=== PATIENT | male | born 1995 | race Hispanic/Latino ===

== ENCOUNTER 2017-01-26 17:34 | Inpatient (IN) | payer MEDICAID ==
[2017-01-26 17:48] VITALS: BMI 24.3
--- NOTE | 2017-01-26 18:50 | ED PDOC ---
Arrival/HPI - General Chief Complaint: Psychiatric Evaluation Time Seen by Provider: 01/26/17 18:30 Historian: Patient - History of Present Illness Narrative History of Present Illness (Text): 01/26/17 20:01 21yo male present with complaint of depression and suicidal attempt. States he have history of drug dependence and went to rehab about 6months ago. States he relapsed and felt depressed. He attempted to take a bottle of Tylenol whenever his father walked into the house. He denies hallucination, HI, any other complaint. Past Medical History - Provider Review Nursing Documentation Reviewed: Yes - Infectious Disease Hx of Infectious Diseases: None - Past Medical History Past Medical History: No Previous - Cardiac Hx Cardiac Disorders: No Hx Hypertension: No - Pulmonary Hx Respiratory Disorders: No Hx Tuberculosis: No - Neurological Hx Neurological Disorder: No HX Cerebrovascular Accident: No Hx Seizures: No - HEENT Hx HEENT Disorder: No - Renal Hx Renal Disorder: No - Endocrine/Metabolic Hx Endocrine Disorders: No - Hematological/Oncological Hx Blood Disorders: No Hx Cancer: No - Integumentary Hx Dermatological Disorder: No - Musculoskeletal/Rheumatological Hx Musculoskeletal Disorders: No - Gastrointestinal Hx Gastrointestinal Disorders: No Hx Gastroesophageal Reflux: Yes - Genitourinary/Gynecological Hx Genitourinary Disorders: No Hx Sexually Transmitted Diseases: No - Psychiatric Hx Psychophysiologic Disorder: Yes Hx Anxiety: Yes Hx Bipolar Disorder: Yes Hx Depression: Yes Hx Substance Use: Yes (Xanax and oxycodone) - Surgical History Hx Tonsillectomy: Yes Other/Comment: adenoidectomy - Anesthesia Hx Anesthesia: Yes Hx Anesthesia Reactions: No Hx Malignant Hyperthermia: No - Suicidal Assessment Feels Threatened In Home Enviroment: No Family/Social History - Physician Review Nursing Documentation Reviewed: Yes Family/Social History: Unknown Family HX Smoking Status: Light Smoker < 10 Cigarettes Daily Hx Alcohol Use: No Hx Substance Use: Yes (Xanax and oxycodone) Substance used: marijuana Allergies/Home Meds Allergies/Adverse Reactions: Allergies No Known Allergies Allergy (Verified 01/26/17 22:37) Review of Systems - Physician Review All systems were reviewed & negative as marked: Yes - Review of Systems Constitutional: Normal Eyes: Normal ENT: Normal Respiratory: Normal Cardiovascular: Normal Gastrointestinal: Normal Genitourinary Male: Normal Musculoskeletal: Normal Skin: Normal Neurological: Normal Endocrine: Normal Hemo/Lymphatic: Normal Psychiatric: Depression, Suicidal Ideation Physical Exam Vital Signs Reviewed: Yes Vital Signs Temp Pulse Resp BP Pulse Ox 01/26/17 17:55 84 16 161/96 H 97 01/26/17 17:47 97.8 F 84 17 161/96 H 97 Temperature: Afebrile Blood Pressure: Normal Pulse: Regular Respiratory Rate: Normal Appearance: Positive for: Well-Appearing, Non-Toxic, Comfortable Pain Distress: None Mental Status: Positive for: Alert and Oriented X 3 - Systems Exam Head: Present: Atraumatic, Normocephalic Pupils: Present: PERRL Extroacular Muscles: Present: EOMI Conjunctiva: Present: Normal Mouth: Present: Moist Mucous Membranes Neck: Present: Normal Range of Motion Respiratory/Chest: Present: Clear to Auscultation, Good Air Exchange. No: Respiratory Distress, Accessory Muscle Use Cardiovascular: Present: Regular Rate and Rhythm, Normal S1, S2. No: Murmurs Abdomen: Present: Normal Bowel Sounds. No: Tenderness, Distention, Peritoneal Signs Back: Present: Normal Inspection Upper Extremity: Present: Normal Inspection. No: Cyanosis, Edema Lower Extremity: Present: Normal Inspection. No: Edema Neurological: Present: GCS=15, CN II-XII Intact, Speech Normal Skin: Present: Warm, Dry, Normal Color. No: Rashes Psychiatric: Present: Alert, Oriented x 3, Normal Insight, Normal Concentration , Depressed Mood Medical Decision Making ED Course and Treatment: 01/27/17 03:22 PT in ED for stated history. He was cleared medically for psych evaluation, was seen by PES screener. He was admitted to Dr. Best for bipolar. - Lab Interpretations Lab Results: 01/26/17 19:10 01/26/17 19:10 Lab Results 01/26/17 19:10: WBC 6.2, RBC 5.12, Hgb 15.6, Hct 43.3, MCV 84.6, MCH 30.5, MCHC 36.0, RDW 12.7, Plt Count 201, MPV 10.0, Gran % 61.2, Lymph % (Auto) 29.6, Morrison % (Auto) 7.1 H, Eos % (Auto) 1.9, Baso % (Auto) 0.2, Gran # 3.82, Lymph # 1.9, Morrison # 0.4, Eos # 0.1, Baso # 0.01, Sodium 141, Potassium 4.0, Chloride 103, Carbon Dioxide 25, Anion Gap 17, BUN 10, Creatinine 0.9, Est GFR ( Amer) > 60, Est GFR (Non-Af Amer) > 60, Random Glucose 90, Calcium 9.6, Total Bilirubin 1.3, AST 19, ALT 22, Alkaline Phosphatase 71, Total Protein 7.9, Albumin 4.5, Globulin 3.4, Albumin/Globulin Ratio 1.3, Salicylates < 1 L, Acetaminophen < 10.0 L, Alcohol, Quantitative < 10 01/26/17 18:35: Urine Color Light yellow, Urine Appearance Clear, Urine pH 7.5, Ur Specific Jemison 1.025, Urine Protein Trace H, Urine Glucose (UA) Negative, Urine Ketones Negative, Urine Blood Negative, Urine Nitrate Negative, Urine Bilirubin Negative, Urine Urobilinogen 0.2, Ur Leukocyte Esterase Negative, Urine RBC 0 - 2, Urine WBC Negative, Ur Epithelial Cells 1 - 3, Amorphous Sediment Small, Urine Bacteria Mod, Urine Opiates Screen Negative, Urine Methadone Screen Negative, Ur Barbiturates Screen Negative, Ur Phencyclidine Scrn Negative, Ur Amphetamines Screen Negative, U Benzodiazepines Scrn Positive H, U Oth Cocaine Metabols Negative, U Cannabinoids Screen Positive H - Medication Orders Current Medication Orders: Acetaminophen (Tylenol 325mg Tab) 650 mg PO Q4H PRN PRN Reason: Pain, moderate (4-7) Al Hydrox/Mg Hydrox/Simethicone (Maalox Plus 30 Ml) 30 ml PO DAILY PRN PRN Reason: Indigestion / Heartburn Atorvastatin Calcium (Lipitor) 20 mg PO DIN [facility] Last Admin: 01/26/17 23:30 Dose: Not Given Non-Admin Reason: Patient Asleep Bupropion HCl (Wellbutrin Xl) 300 mg PO DAILY [facility] Clonazepam (Klonopin) 2 mg PO TID [facility] PRN Reason: Protocol Magnesium Hydroxide (Milk Of Magnesia) 30 ml PO DAILY PRN PRN Reason: Constipation Mirtazapine (Remeron) 45 mg PO HS [facility] Last Admin: 01/26/17 23:04 Dose: 45 MG Nicotine (Nicoderm Cq) 1 patch TD DAILY [facility] Pantoprazole Sodium (Protonix Ec Tab) 40 mg PO 0630 [facility] Quetiapine Fumarate (Seroquel Xr) 300 mg PO HS PRN; Protocol PRN Reason: Insomnia Last Admin: 01/26/17 23:04 Dose: 300 MG Behavioural Document 01/26/17 23:04 MB (Rec: 01/26/17 23:04 MB [id number]) Maintenance Maintenance Dose Yes Re-Assess: Reassess Psych Meds Document 01/27/17 00:04 MB (Rec: 01/27/17 01:58 MB [id number]) Reassess Psych Med Effective Zolpidem Tartrate (Ambien) 10 mg PO HS PRN; Protocol PRN Reason: Insomnia Last Admin: 01/26/17 23:04 Dose: 10 MG Behavioural Document 01/26/17 23:04 MB (Rec: 01/26/17 23:04 [id number] Maintenance Maintenance Dose Yes Re-Assess: Reassess Psych Meds Document 01/27/17 00:04 MB (Rec: 01/27/17 01:55 MB [id number]) Reassess Psych Med Effective Disposition/Present on Arrival - Present on Arrival Any Indicators Present on Arrival: No History of DVT/PE: No History of Uncontrolled Diabetes: No Urinary Catheter: No History of Decub. Ulcer: No History Surgical Site Infection Following: None - Disposition Have Diagnosis and Disposition been Completed?: Yes Diagnosis: Suicidal ideation, Bipolar 1 disorder, Polysubstance abuse Disposition: HOSPITALIZED Disposition Time: 21:15 Patient Problems: Current Active Problems Problem Status Diagnosed Bipolar 1 disorder Acute Polysubstance abuse Acute Suicidal ideation Acute Condition: FAIR
[2017-01-26 18:54] LABS: PH,URINE 7.5 (4.7-8.0); URINE BILIRUBIN NEGATIVE (NEGATIVE); URINE BLOOD NEGATIVE (NEGATIVE); URINE GLUCOSE (UA) NEGATIVE (NEGATIVE); URINE KETONE NEGATIVE (NEGATIVE); URINE LEUKOCYTE ESTERASE NEGATIVE Leu/uL (NEGATIVE); URINE PROTEIN TRACE mg/dL (<30 mg/dL); URINE UROBILINOGEN 0.2 E.U./dL (<1 E.U./dL)
[2017-01-26 19:01] LABS: URINE APPEARANCE CLEAR (CLEAR); URINE COLOR LIGHT YELLOW (YELLOW)
[2017-01-26 19:16] LABS: ADD MANUAL DIFF? NO
[2017-01-26 19:22] LABS: BASO # 0.01 [, K/mm3] (0.0-2.0); BASO % 0.2 % (0.0-3.0); EOS # 0.1 (0.0-0.7); EOS % 1.9 % (1.5-5.0); GRAN # 3.82 (1.4-6.5); GRAN % 61.2 % (50.0-68.0); HEMATOCRIT 43.3 % (42.0-52.0); LYMPH # 1.9 (1.2-3.4); LYMPH % 29.6 % (22.0-35.0); MEAN CELL VOLUME 84.6 fL (80.0-105.0); MEAN CORPUSCULAR HEMOGLOBIN 30.5 pg (25.0-35.0); MONO # 0.4 (0.1-0.6); MONO % 7.1 % (1.0-6.0); PLATELET COUNT 201 [, 10^3/uL] (120.0-450.0); RED CELL DISTRIBUTION WIDTH 12.7 % (11.5-14.5); WHITE BLOOD COUNT 6.2 [, 10^3/ul] (4.5-11.0)
[2017-01-26 19:32] LABS: ALB/GLOB RATIO 1.3 (1.1-1.8); ALKALINE PHOSPHATASE 71 U/L (38-133); ALT/SGPT 22 U/L (7-56); AST/SGOT 19 U/L (15-59); BILIRUBIN,TOTAL 1.3 mg/dL (0.2-1.3); BLOOD UREA NITROGEN 10 mg/dL (7-21); CALCIUM 9.6 mg/dL (8.4-10.5); CARBON DIOXIDE 25 mmol/L (21-33); CHLORIDE 103 mmol/L (98-107); GFR AFRICAN-AMERICAN > 60; GLUCOSE,RANDOM 90 mg/dL (70-110); SODIUM 141 mmol/L (132-148); TOTAL PROTEIN 7.9 g/dL (5.8-8.3)
[2017-01-26 19:38] LABS: URINE BACTERIA MOD (NEG); URINE RBC 0 - 2 /hpf (0-2); URINE WBC NEGATIVE /hpf (0-6)
[2017-01-26 19:39] LABS: URINE AMORPHOUS SEDIMENT SMALL
[2017-01-26] MEDS ORDERED: Alum-Mag Hydrox-Simethicone Susp (30 mL) PO PRN (22:39)
[2017-01-26] MEDS ORDERED: Magnesium Hydroxide Susp 30 ml UD PO PRN (22:39)
[2017-01-26] MEDS: QUEtiapine 300 mg XR Tab PO PRN (23:04)
[2017-01-27 00:19] VITALS: O2SAT 96
[2017-01-27] MEDS: Pantoprazole 40 mg EC Tab PO SCH (08:08)
[2017-01-27] MEDS: buPROPion 300 mg/24 Hours XL Tab PO SCH (08:08)
[2017-01-27 08:53] LABS: CHOLESTEROL 227 mg/dL (130-200); GLUCOSE,FASTING 89 mg/dL (65-110)
--- NOTE | 2017-01-27 14:54 | CON ---
DATE: 01/27/2017 He is in the psychiatric unit. I have seen him in the office a few times. He is a 21-year-old male who has a history of depression and suicidal attempt. He came to the Emergency Room because he was not doing well. He is drug dependent. He went to rehab for 6 months. He relapsed and he is depressed. He attempted to take a bottle of Tylenol. His father walked to the house and here we are in the ER and back in the psychiatric unit. PAST MEDICAL HISTORY: He has a history of GERD, anxiety, bipolar, depression, substance abuse on Xanax and oxycodone, questionable history of hypertension and high cholesterol. He has anxiety, bipolar. PAST SURGICAL HISTORY: He had an adenoidectomy at one time, tonsillectomy. FAMILY HISTORY: There is hypertension in the family. SOCIAL HISTORY: He is a smoker. Xanax, codeine, marijuana. Occasional alcohol. ALLERGIES: No known drug allergies. REVIEW OF SYSTEMS: No acute vision changes or hearing changes or sore throats. No headaches, dizziness. No chest pain or shortness of breath. No nausea, vomiting, constipation, diarrhea. His legs are okay. Skin for the most part is intact. He has suicidal thoughts and depression. PHYSICAL EXAMINATION: VITAL SIGNS: He has a 97.8 temp, 84 pulse, 17 respiratory rate, 161/96 blood pressure, 97% O2 sat on room air. HEENT: Head is atraumatic, normocephalic. He is alert and oriented x 3. Extraocular muscles are intact. Pupils are equal, reactive to light. Throat is moist. NECK: Supple. HEART: Regular rate. LUNGS: Decreased breath sounds but clear. ABDOMEN: Soft, nontender, positive bowel sounds. No guarding, no rebound, no CVA tenderness. EXTREMITIES: Have no edema. NEUROLOGIC: His GCS is 15. Cranial nerves II-XII are intact. His face on both sides, he felt the same with a tissue. He could smile, stick out his tongue midline. He could follow my finger in an H pattern with his eyes. He could raise his hands over his head equally. He is in no acute neurological distress at this time. LABORATORY: He had a 6.2 white count, 15.6 hemoglobin, 43.3 hematocrit with 201 platelets. He has a 141 sodium, potassium is 4, BUN is 10, creatinine 0.9, GFR is greater than 60, sugar is 90, calcium is 9.6. Total bili is 1.3, AST is 19, ALT is 22, alkaline phosphatase 71, total protein 7.9. Urine is moderate bacteria. He has positive benzo and positive marijuana in the urine. MEDICATIONS: He is on Ambien, Klonopin, Lipitor, Maalox, milk of magnesia, Nicoderm, Protonix, Remeron, Seroquel, Tylenol, Wellbutrin. I added Norvasc. Will check his labs tomorrow. He is here for depression, suicidal ideation, hypertension, high cholesterol, smoker, marijuana abuse and gastroesophageal reflux disease. check bp tomorrow and his labs. He understands why he is here. He is pretty motivated to get better; I hope that it persists. Dung Sosa DO cc: [id number] TT: 01/27/2017 14:53:37 Confirmation # [id number] Dictation # [id number] mn MTDWade
--- NOTE | 2017-01-27 16:42 | RAD ---
HISTORY: Medical clearance. COMPARISON: No prior. TECHNIQUE: Chest PA and lateral FINDINGS: LUNGS: No active pulmonary disease. PLEURA: No significant pleural effusion identified. No pneumothorax apparent. CARDIOVASCULAR: Normal. OSSEOUS STRUCTURES: No significant abnormalities. VISUALIZED UPPER ABDOMEN: Normal. OTHER FINDINGS: None. IMPRESSION: No active disease.
--- NOTE | 2017-01-27 18:00 | CARD ---
APPROVED REPORT EKG Measurement Heart [id number] [place] [id number] <Conclusion> Normal sinus rhythm Rightward axis Borderline ECG
[2017-01-27] MEDS: QUEtiapine 300 mg XR Tab PO PRN (21:21)
--- NOTE | 2017-01-28 07:26 | HP ---
IDENTIFYING INFORMATION: The patient is a 21-year-old single white male who was brought to the Emerg ency Room by his father expressing suicidal thoughts. HISTORY OF PRESENT ILLNESS: The patient indicated that he had been feeling depressed and did not fee l like living anymore. He indicated that he woke up and decided to end his life. In the Emergency Room, he explained that he had picked up a bottle of Tylenol and had put into his mo uth with the intent of swallowing it when his father walked in. He reportedly did consume some pills , but then threw up. The patient indicated that he had recently relapsed with OxyContin and was feel ing badly about this. He could not say how much Tylenol he had consumed. He indicated that he had been on psychotropic medication but stopped this months ago because he was f eeling better. He did admit also to smoking marijuana and also Xanax. In the Emergency Room, his speech was noted to be normal in rate, tone, and speed, and his thought pr ocesses were logical and goal directed and he answered questions appropriately with no signs of psych otic or paranoid ideation. He did state, however, that he was hearing voices that he could not make out, although he did say that he heard his name a few times. The patient previously had been admitted to the psychiatric unit from 07/07/2016 to 07/15/2016 under the care of Dr. Shukla. At that time, as presently, he reported a history of polysubstance abuse and dependence. He also reported a history of attention deficit hyperactivity disorder. That hospitalization apparently was his first (and only as far as can be presently determined). The patient then was noted to be hypomanic as he is now, and was noted to be over productive in his s peech (as he is now and with some pressured speech as well). At that time, he admitted to abusing predominantly Xanax. He reports a history of 6 prior detoxifications. Most recently was 3 months prior to his previous spitalization; this having been at [facility]. The patient reports a history of using psychedelics (mushrooms), opioid analgesics and benzodiazepine s (Xanax), alcohol, cocaine, IV heroin, PCP. Prior detoxifications have been in [facility] (3 times), [facility] as noted and [place], [place]. The patient reported that he had been referred after his last hospitalization to the [facility], but had not seen a psychiatrist there. The patient reported that he had been taking 300 mg of Seroquel daily, although his compliance with t his is uncertain. He also indicated he was on Wellbutrin. Presently, the patient has been started again on Remeron 45 mg at bedtime, Seroquel 150 a.m. and 300 at bedtime, Wellbutrin 300 daily, Lamictal 50 mg per day as well as Klonopin 2 mg t.i.d. A CBC and differential shows slightly elevated monocyte percent of 7.1. Other indices within normal limits. RPR was nonreactive. Drug screen positive for benzodiazepines and cannabinoids. Biochemical profile shows elevated cholesterol of 227, LDH cholesterol 153. Urinalysis shows trace p rotein. 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 He does not appear to be overtly psychotic nor overtly homicidal or suicidal or paranoid. Hi s ____, however, do appear to be compromised. DIAGNOSES: Rule out bipolar disorder, rule out substance-induced mood disorder, polysubstance abuse. TREATMENT PLAN: The patient will be assessed more fully on the psychiatric unit and a more comprehen sive treatment plan will be developed subsequently. Ever Best MD, PhD cc: [id number] TT: 01/28/2017 07:25:01 ut
[2017-01-28 08:30] LABS: HEMATOCRIT 46.8 % (42.0-52.0); MEAN CELL VOLUME 84.2 fL (80.0-105.0); MEAN CORPUSCULAR HEMOGLOBIN 30.6 pg (25.0-35.0); MEAN CORPUSCULAR HGB CONC 36.3 g/dl (31.0-37.0); MEAN PLATELET VOLUME 10.2 fl (7.0-11.0); WHITE BLOOD COUNT 6.1 [, 10^3/ul] (4.5-11.0)
[2017-01-28] MEDS: buPROPion 300 mg/24 Hours XL Tab PO SCH (08:41)
[2017-01-28] MEDS: Pantoprazole 40 mg EC Tab PO SCH (08:41)
[2017-01-28 08:43] LABS: ALB/GLOB RATIO 1.3 (1.1-1.8); ALKALINE PHOSPHATASE 85 U/L (38-133); ALT/SGPT 21 U/L (7-56); AST/SGOT 18 U/L (15-59); BILIRUBIN,TOTAL 2.5 mg/dL (0.2-1.3); BLOOD UREA NITROGEN 15 mg/dL (7-21); CALCIUM 9.7 mg/dL (8.4-10.5); CARBON DIOXIDE 24 mmol/L (21-33); CHLORIDE 102 mmol/L (98-107); GFR AFRICAN-AMERICAN > 60; GLUCOSE,RANDOM 102 mg/dL (70-110); POTASSIUM 3.7 mmol/L (3.6-5.0); SODIUM 140 mmol/L (132-148); TOTAL PROTEIN 8.3 g/dL (5.8-8.3)
--- NOTE | 2017-01-28 08:58 | PN ---
DATE: 01/28/2017 I saw the patient on the psychiatric floor. He is comfortable. He slept well, eating well, taking his medications well. He wants to get better. MEDICATIONS: He is on Ambien, Klonopin, Lamictal, Lipitor, Maalox, milk of magnesia, Nicoderm, Norvasc, Protonix, Remeron, Seroquel, Tylenol, and Wellbutrin. PHYSICAL EXAMINATION: VITAL SIGNS: Temp 97.4, 48 pulse, 108/61 blood pressure, 20 respiratory rate. HEAD: Atraumatic, normocephalic. HEART: Regular rate. LUNGS: Clear to auscultation. ABDOMEN: Soft. EXTREMITIES: No edema. I am hoping he gets better. He is here for depression, hypertension, high cholesterol, and I am glad his blood pressure is getting improved. Dung Sosa DO cc: [id number] TT: 01/28/2017 08:58:10 Confirmation # [id number] Dictation # [id number] MTDD
--- NOTE | 2017-01-28 13:54 | PCM.PYCHPN ---
Psychiatric Progress Note - Psychiatric Progress Note Patient seen today, length of contact: 25 Patient Chief Complaint: Still seems somewhat manic complaints of suicidal thoughts yesterday. Scattered in history presentation Interviewed in treatment team Patient is presently on Seroquel but we will be more specific dopaminergic antagonistic respiratory History that he gives is consistent almost immediately. Seems to have been on the verge are actually taken an overdose of Tylenol but his father found him. Speaks of having ADD in early adolescence and having been on some Centra Patient Speaks of His Parents Breaking up When He Was 1 Years Old That He Living with His Mother for a Period of Time Her Mother However Appears to Have Had a Substance Abuse Problem She Had Children with 3 Different Men. Patient Has an Older Brother and a Younger Brother. Patient Most Recently Has Been Living with Father Who Has a Substance Abuse Problem Himself and Is Undergoing Muscle Wasting According to the Patient Patient Has One Prior Psychiatric Hospitalizations (Here at [place]) and 6 Prior Rehabilitations for Substance Abuse, Predominantly Opioid Analgesics since Early Early Adolescence I Had Started Patient on Lamictal but I Am Fearful Will Take Tool to Exert Its Effectiveness Will Add Another Mood Stabilizer. The Patient Was Asking for Restoril since His Cousin Is on This. Problems Identified/Issues Discussed: Substance abuse. Mood disorder. Possible ADHD. Medical Problems: Complains of right frontal headache and chest pain............................................................... DSM 5 Symptoms Update: ..... Depression, pressured speech, suicidal ideation, substance usage including psychedelics Medication Change: Yes Medical Record Reviewed: Yes Mental Status Examination - Cognitive Function Memory: Intact Attention: Poor Concentration: Poor Association: WNL Fund of Knowledge: WNL Decription of patient's judgement and insights: Impaired - Mood Mood: Anxious, Homicidal Ideation - Affect Affect: Other - Speech Speech: Pressured - Formal Thought Process Formal Thought Process: No Impairment - Suicidal Ideation Suicidal Ideation: Yes - Homicidal Ideation Homicidal Ideation: No Goal/Treatment Plan - Goal/Treatment Plan Need for Continued Stay: Remain at risks for inpatient hospitalization, Severe depression anxiety, Discharge may exacerbated symptoms
[2017-01-28] MEDS: QUEtiapine 300 mg XR Tab PO PRN (21:54)
[2017-01-29] MEDS: Pantoprazole 40 mg EC Tab PO SCH (09:12)
[2017-01-29] MEDS: buPROPion 300 mg/24 Hours XL Tab PO SCH (09:13)
--- NOTE | 2017-01-29 10:03 | PN ---
DATE: 01/29/2017 I saw the patient in his room. He is telling me that he has been having left eye pain and headaches. He does not know why he is getting them and he wanted to know if we can do a test to see what is go ing on in his brain. He was requesting CAT scan of the head. This has been going on and off for a w hile now, more than 2-3 months. He does not know why. He is currently on Ambien, Klonopin, Lamictal, Lipitor, Maalox, milk of magnesia, Nicoderm, Norvasc, Protonix, Remeron, Risperdal, Seroquel, Tylenol, and Wellbutrin. PHYSICAL EXAMINATION: VITAL SIGNS: 97.4 temp, 48-98 pulse, 140/85 blood pressure, 20 respiratory rate. HEENT: His head is atraumatic, normocephalic. Extraocular muscles are intact. Throat is moist, no erythema. I do not have an explanation for his headache. HEART: Regular rate. LUNGS: Clear to auscultation. ABDOMEN: Soft, nontender, positive bowel sounds. EXTREMITIES: No edema. He is walking around. He tells me he is starting to feel better with the medication from psychiatry and he feels it was a good idea for him to come to the hospital. He has a 6.1 white count, 17 hemogl obin, 214 platelets. Sodium 140, potassium 3.7, BUN 15, creatinine 1.1, GFR is greater than 60, suga r is 102, calcium is 9.7, total bili is 2.5. AST is 18, ALT is 21, alk phos 85. TSH is 0.62. Urine was moderate bacteria. I am going to do a UA, C and S on him. RPR was nonreactive. We will check a CAT scan of his head. Check a UA, C and S, and we will see if we can find the reason for his headaches. Continue with psychiatric care for his depression. Dung Sosa DO cc: [id number] TT: 01/29/2017 10:02:18 Confirmation # [id number] Dictation # [id number] tn
--- NOTE | 2017-01-29 11:57 | PCM.PYCHPN ---
Psychiatric Progress Note - Psychiatric Progress Note Patient seen today, length of contact: 25 Patient Chief Complaint: Still seems somewhat manic complaints of suicidal thoughts yesterday. Scattered in history presentation Interviewed in treatment team Patient is presently on Seroquel but we will be more specific dopaminergic antagonistic respiratory History that he gives is consistent almost immediately. Seems to have been on the verge are actually taken an overdose of Tylenol but his father found him. Speaks of having ADD in early adolescence and having been on some Centra Patient Speaks of His Parents Breaking up When He Was 1 Years Old That He Living with His Mother for a Period of Time Her Mother However Appears to Have Had a Substance Abuse Problem She Had Children with 3 Different Men. Patient Has an Older Brother and a Younger Brother. Patient Most Recently Has Been Living with Father Who Has a Substance Abuse Problem Himself and Is Undergoing Muscle Wasting According to the Patient Patient Has One Prior Psychiatric Hospitalizations (Here at [place]) and 6 Prior Rehabilitations for Substance Abuse, Predominantly Opioid Analgesics since Early Early Adolescence I Had Started Patient on Lamictal but I Am Fearful Will Take Tool to Exert Its Effectiveness Will Add Another Mood Stabilizer. The Patient Was Asking for Restoril since His Cousin Is on This. Problems Identified/Issues Discussed: Substance abuse. Mood disorder. Possible ADHD. Medical Problems: Complains of right frontal headache and chest pain............................................................... Diagnostic Results: has had a CT scan of head. Medication Change: No Medical Record Reviewed: Yes Mental Status Examination - Cognitive Function Orientation: Person, Place, Situation, Time Memory: Intact Attention: WNL Concentration: Poor Association: WNL Fund of Knowledge: WNL Decription of patient's judgement and insights: lacking - Mood Mood: Anxious, Homicidal Ideation - Affect Affect: Other - Speech Speech: Appropriate - Formal Thought Process Formal Thought Process: No Impairment Psychotic Thoughts and Behaviors: none - Suicidal Ideation Suicidal Ideation: No - Homicidal Ideation Homicidal Ideation: No Goal/Treatment Plan - Goal/Treatment Plan Need for Continued Stay: Remain at risks for inpatient hospitalization, Discharge may exacerbated symptoms Progress Toward Problem(s) and Goals/Treatment Plan: patient seems somewhatless manicky and pressured Remains soaticand probably medication seeking. looks for quick resolution to his problems with medicato Case discussed wih father yesterday
[2017-01-29 12:38] LABS: PH,URINE 7.5 (4.7-8.0); URINE BILIRUBIN NEGATIVE (NEGATIVE); URINE BLOOD NEGATIVE (NEGATIVE); URINE GLUCOSE (UA) NEGATIVE (NEGATIVE); URINE KETONE NEGATIVE (NEGATIVE); URINE LEUKOCYTE ESTERASE NEGATIVE Leu/uL (NEGATIVE); URINE PROTEIN NEGATIVE mg/dL (<30 mg/dL); URINE UROBILINOGEN 0.2 E.U./dL (<1 E.U./dL)
[2017-01-29 12:41] LABS: URINE APPEARANCE CLEAR (CLEAR); URINE COLOR YELLOW (YELLOW)
--- NOTE | 2017-01-29 13:18 | CT ---
PROCEDURE: CT HEAD WITHOUT CONTRAST. HISTORY: left eye pain h/a unexplained COMPARISON: None available. TECHNIQUE: Axial computed tomography images were obtained through the head/brain without intravenous contrast. Radiation dose: Total exam DLP = 768.48 mGy-cm. FINDINGS: HEMORRHAGE: No intracranial hemorrhage. BRAIN: No mass effect or edema. No atrophy or chronic microvascular ischemic changes. VENTRICLES: Unremarkable. No hydrocephalus. CALVARIUM: Unremarkable. PARANASAL SINUSES: Unremarkable as visualized. No significant inflammatory changes. MASTOID AIR CELLS: Unremarkable as visualized. No inflammatory changes. OTHER FINDINGS: None. IMPRESSION: No evidence of acute intracranial hemorrhage mass effect or midline shift.
[2017-01-29] MEDS: QUEtiapine 300 mg XR Tab PO PRN (22:49)
[2017-01-30] MEDS: buPROPion 300 mg/24 Hours XL Tab PO SCH (08:22)
[2017-01-30] MEDS: Pantoprazole 40 mg EC Tab PO SCH (08:23)
--- NOTE | 2017-01-30 10:12 | PN ---
DATE: 01/30/2017 I saw him on the psychiatric floor. He is sitting up. He slept well last night--2 nights in a row; he is very happy with that. He is comfortable. He is taking Ambien, Klonopin, Lamictal, Lipitor, Maalox, milk of magnesia, Nicoderm, Norvasc, Proton ix, Remeron, Risperdal, Seroquel, Tylenol, and Wellbutrin. He said yesterday he was a little bit active. He says he is a little bit calmer today. VITAL SIGNS: 98.7 temp, 81 pulse, 131/76 blood pressure, 20 respiratory rate. HEAD: Atraumatic, normocephalic. HEART: Regular rate. LUNGS: Clear to auscultation. ABDOMEN: Soft. EXTREMITIES: No edema. He is comfortable. He slept well. He is hungry. He has got an appetite for breakfast. He is hopin g to have a better day today. His last labs were good on 01/28. He is here for depression and suicidal thoughts, hypertension, high cholesterol. Headache, which is better this morning. Smoker, and I am hoping continues to improve. Dung Sosa DO cc: [id number] TT: 01/30/2017 10:12:35 Confirmation # [id number] Dictation # [id number] ashley
--- NOTE | 2017-01-30 15:24 | PCM.PYCHPN ---
Psychiatric Progress Note - Psychiatric Progress Note Patient seen today, length of contact: 25 Patient Chief Complaint: Still seems somewhat manic complaints of suicidal thoughts yesterday. Scattered in history presentation Interviewed in treatment team Patient is presently on Seroquel but we will be more specific dopaminergic antagonistic respiratory History that he gives is consistent almost immediately. Seems to have been on the verge are actually taken an overdose of Tylenol but his father found him. Speaks of having ADD in early adolescence and having been on some [facility] Patient Speaks of His Parents Breaking up When He Was 1 Years Old That He Living with His Mother for a Period of Time Her Mother However Appears to Have Had a Substance Abuse Problem She Had Children with 3 Different Men. Patient Has an Older Brother and a Younger Brother. Patient Most Recently Has Been Living with Father Who Has a Substance Abuse Problem Himself and Is Undergoing Muscle Wasting According to the Patient Patient Has One Prior Psychiatric Hospitalizations (Here at [facility]) and 6 Prior Rehabilitations for Substance Abuse, Predominantly Opioid Analgesics since Early Early Adolescence I Had Started Patient on Lamictal but I Am Fearful Will Take Tool to Exert Its Effectiveness Will Add Another Mood Stabilizer. The Patient Was Asking for Restoril since His Cousin Is on This. Problems Identified/Issues Discussed: Substance abuse. Mood disorder. Possible ADHD. Medical Problems: Complains of right frontal headache and chest pain............................................................... Diagnostic Results: has had a CT scan of head. DSM 5 Symptoms Update: Remains somewhat bizarre in behavior and affect while not exhibiting thought derailment, but does frequently become tangential or circumstantial. Velocity of speech has improved Patient's self-description of the way he feels has improved Insight however appears to be lacking. It is this a bipolar disorder?? Is his behavior the residua of coming off of opioid analgesic medication abuse?? Is the patient demonstrating the residua of an attention deficit disorder?? Medication Change: No (T/c adding Depakote) Medical Record Reviewed: Yes Consults ordered or reviewed: Reviewed Mental Status Examination - Cognitive Function Orientation: Person, Place, Situation, Time Memory: Intact Attention: Poor Concentration: Poor Association: WNL Fund of Knowledge: WNL - Mood Mood: Anxious, Homicidal Ideation - Affect Affect: Broad - Speech Speech: Appropriate - Formal Thought Process Formal Thought Process: No Impairment - Suicidal Ideation Suicidal Ideation: No - Homicidal Ideation Homicidal Ideation: No Goal/Treatment Plan - Goal/Treatment Plan Need for Continued Stay: Remain at risks for inpatient hospitalization, Discharge may exacerbated symptoms Progress Toward Problem(s) and Goals/Treatment Plan: patient seems somewhatless manicky and pressured Remains soaticand probably medication seeking. looks for quick resolution to his problems with medicato Case discussed wih father yesterday On 324 it is deemed that the patient is improving. He still gets easily distracted and gets anxious and is anxious to express all of his symptoms and wants to depend on a written summation. Seems to want to use his father as a goal between
[2017-01-30] MEDS: QUEtiapine 300 mg XR Tab PO PRN (21:25)
--- NOTE | 2017-01-31 09:00 | PCM.PYCHPN ---
Psychiatric Progress Note - Psychiatric Progress Note Patient seen today, length of contact: 25 min Patient Chief Complaint: Morris and anxious Problems Identified/Issues Discussed: I reviewed assessment and recent notes. Patient was interviewed at bedside. Patient is groomed, well-oriented and communicative. Indicates that he still feels morris and anxious. Affect is congruent. Sleep was restless last night. Patient requests increase in risperdal for these reasons. Patient's responses are relevant to questioning and he denies having any hallucinations. Delusions were not elicited during this visit. Currently denies any new discomfort or pain and has been tolerating his medications Staff notes indicate that patient has been out in the community, watching TV. There were no behavioral issues overnight Diagnostic Results: Mood disorder Substance abuse. Possible ADHD Medication Change: Yes (Increased risperdal) Medical Record Reviewed: Yes Mental Status Examination - Cognitive Function Orientation: Person, Place, Situation, Time Memory: Intact Attention: Poor Concentration: Poor Association: WNL Fund of Knowledge: WNL - Mood Mood: Anxious, Homicidal Ideation - Affect Affect: Broad - Speech Speech: Appropriate - Formal Thought Process Formal Thought Process: No Impairment - Suicidal Ideation Suicidal Ideation: No - Homicidal Ideation Homicidal Ideation: No Goal/Treatment Plan - Goal/Treatment Plan Need for Continued Stay: Remain at risks for inpatient hospitalization, Discharge may exacerbated symptoms Progress Toward Problem(s) and Goals/Treatment Plan: * c/w current tx and plan * No new weekend labs * Increased risperdal to help with lability, off-label for anxiety * Vitals reviewed and noted below: Selected Entries 01/30/17 01/30/17 01/30/17 06:00 08:21 16:00 Temperature 97.3 F L Pulse Rate 58 L 70 67 Respiratory 22 Rate Blood Pressure 136/84 136/84 122/63
[2017-01-31] MEDS: buPROPion 300 mg/24 Hours XL Tab PO SCH (09:59)
[2017-01-31] MEDS: Pantoprazole 40 mg EC Tab PO SCH (10:03)
--- NOTE | 2017-01-31 13:57 | PN ---
DATE: 01/31/2017 I see the patient sitting in his bed in his room. He is comfortable. He is feeling better. He has questions about his CAT scan of his head. He is currently on Ambien, Klonopin, Lamictal, Lipitor, Maa lox, milk of magnesia, Nicoderm patch, Norvasc, Protonix, Remeron, Risperdal, Seroquel, Tylenol, Well butrin. PHYSICAL EXAMINATION: VITAL SIGNS: 97.2 temp, 67 pulse, 131/77 blood pressure, 17 respiratory rate. HEAD: Atraumatic, normocephalic. Throat is moist. NECK: Supple. HEART: Regular rate. LUNGS: Clear to auscultation. ABDOMEN: Soft. EXTREMITIES: No edema. LABORATORY DATA: He had a CAT scan of the brain which we discussed which shows no evidence of any ac marion abnormality. He came in for depression and suicidal thoughts, hypertension, high cholesterol, smoker, he has a hea dache. As per psychiatry, continue with adjustment of medicines. I do think he is starting to impro ve though. Dung Sosa DO cc: [id number] TT: 01/31/2017 13:56:34 Confirmation # [id number] Dictation # [id number] jay
[2017-01-31] MEDS: QUEtiapine 300 mg XR Tab PO PRN (21:42)
[2017-02-01 07:36] VITALS: RESP 20
[2017-02-01] MEDS: buPROPion 300 mg/24 Hours XL Tab PO SCH (08:24)
--- NOTE | 2017-02-01 09:01 | PCM.PYCHPN ---
Psychiatric Progress Note - Psychiatric Progress Note Patient seen today, length of contact: 25 min Patient Chief Complaint: Morris and anxious Problems Identified/Issues Discussed: I reviewed recent notes and met with patient in the hallway a few times. Patient is groomed, well-oriented and communicative. Indicates that he still feels morris and anxious. Affect is congruent. Tolerated increased dose of risperdal yesterday. Patient's responses are relevant to questioning and he denies having any hallucinations. Delusions were not elicited during my visits this weekend. Currently denies any new discomfort or pain and has been tolerating his medications. Staff notes indicate that patient has been depressed and anxious. Generally in control and there were no behavioral issues over the weekend Diagnostic Results: Mood disorder Substance abuse. Possible ADHD Medication Change: Yes (Increased risperdal 01/31/17) Medical Record Reviewed: Yes Mental Status Examination - Cognitive Function Orientation: Person, Place, Situation, Time Memory: Intact Attention: Poor Concentration: Poor Association: WNL Fund of Knowledge: WNL - Mood Mood: Anxious - Affect Affect: Broad, Other (anxious) - Speech Speech: Appropriate - Formal Thought Process Formal Thought Process: No Impairment - Suicidal Ideation Suicidal Ideation: No - Homicidal Ideation Homicidal Ideation: No Goal/Treatment Plan - Goal/Treatment Plan Need for Continued Stay: Remain at risks for inpatient hospitalization, Discharge may exacerbated symptoms Progress Toward Problem(s) and Goals/Treatment Plan: * c/w current tx and plan * Increased risperdal to 1 mg po bid on 01/31/17 to help with lability, off- label for anxiety * Appreciate f/u by Dr. Sosa on 01/31/17~no new recommendations * No new weekend labs * Vitals reviewed and noted below: Selected Entries 02/01/17 07:35 Temperature 97.3 F L Pulse Rate 61 Respiratory 20 Rate Blood Pressure 118/72
[2017-02-01] MEDS: Pantoprazole 40 mg EC Tab PO SCH (09:10)
--- NOTE | 2017-02-01 11:22 | PN ---
DATE: 02/01/2017 I saw him on the psychiatric floor. He was talking with some of the other patients. He is comfortab le. He is feeling well. He is in good spirits. He says he is feeling better with the medication. He is looking forward to going home soon. MEDICATIONS: He is on Ambien, Klonopin, Lamictal, Lipitor, Maalox, milk of magnesia, Nicoderm, Norva sc, Protonix, Remeron, Risperdal, Seroquel, Tylenol, and Wellbutrin. PHYSICAL EXAMINATION: VITAL SIGNS: Temp 97.3, 61 pulse, 118/72 blood pressure, 20 respiratory rate. HEAD: Atraumatic, normocephalic. Throat is moist. NECK: Supple. HEART: Regular rate. LUNGS: Clear to auscultation. ABDOMEN: Soft, nontender. Positive bowel sounds. EXTREMITIES: No edema. He is doing very well I think, much improved. He is being seen by psychiatry. They are still adjust ing his medications. I do think he is improving. He has depression and mood disorder, substance abu se, hypertension, high cholesterol, smoking, headaches. I am hoping to get him off of drugs and smok ing. I discuss that with him. He is not suicidal and not depressed at this time, and as per psychia try, and the doctor dictating, the patient is improving nicely. Dung Sosa DO cc: [id number] TT: 02/01/2017 11:21:48 Confirmation # [id number] Dictation # [id number] ashley
[2017-02-02 07:46] VITALS: BP 139/78; PULSE 64; TEMP 98
[2017-02-02] MEDS: buPROPion 300 mg/24 Hours XL Tab PO SCH (08:05)
[2017-02-02] MEDS: Pantoprazole 40 mg EC Tab PO SCH (08:06)
--- NOTE | 2017-02-02 10:01 | PN ---
DATE: 02/02/2017 I saw him in his room this morning on the psychiatric floor. He is telling me he gets some jittery f eelings during the day, even though he is on lots of medications, although overall he is feeling bett er. He is not sure why he has these jittery feel feelings. MEDICATIONS: He is on Ambien, Klonopin, Lamictal, Lipitor, Maalox, milk of magnesia, Nicoderm patch, Norvasc, Protonix, Remeron, Risperdal, Seroquel, Tylenol and Wellbutrin. PHYSICAL EXAMINATION: VITAL SIGNS: 98 temp, 64 pulse, 139/78 blood pressure, 20 respiratory rate. HEENT: Head is atraumatic, normocephalic. HEART: Regular rate. LUNGS: Clear to auscultation. ABDOMEN: Soft. EXTREMITIES: No edema. Overall, I think he is improving. He is eating well. He is participating. He is feeling better. I am not sure what to make of this jittery feeling unless it could be from the Nicoderm patch. I will try and stop the Nicoderm patch and see if these feelings go away. Continue as per psychiatry. We also discussed not smoking anymore, not drinking anymore, not doing any bad things anymore. He heard what I had to say. I will stop the Nicoderm patch and see if his jittery feelings will go away. As per psychiatry, continue with aggressive treatment and care. He is here for depression, suicidal thoughts, hypertension, high cholesterol, smoker, headaches. Dung Sosa DO cc: [id number] TT: 02/02/2017 10:00:48 Confirmation # [id number] Dictation # [id number] mn
--- NOTE | 2017-02-02 18:43 | PCM.PYCHDC ---
Mental Status Examination - Mental Status Examination Memory: Intact Mood: Other (Reports some jitteriness but much less anxious than admission) Affect: Broad Speech: Appropriate Attention: WNL Concentration: WNL Association: WNL Fund of Knowledge: WNL Formal Thought Process: No Impairment Description of patient's judgement and insight: lacking Psychotic Thoughts and Behaviors: none Suicidal Ideation: No Current Homicidal Ideation?: No Discharge Summary - Discharge Note Reason for Hospitalization: Patient had been on the verge of overdosing and was feeling suicidal. Has been feeling bad about relapsing on oxycodone recently Psychiatric History (includes Medical, Family, Personal Hx): See admission note Laboratory Data: See admission note Consultations:: List each consultation separately and include: 1. Reason for request. 2. Findings. 3. Follow-up Consultations: Reviewed Summary of Hospital Course include:: 1. Description of specific treatment plan utilized for patients during their course of treatmen. 2. Summarize the time- course for resolution of acute symptoms and/or regressed behaviors. 3. Describe issues identified and worked on during hospitalization. 4. Describe medication utilized. 5. Describe medical problems identified and treated. 6. Reassessment of suicide risk Summary of Hospital Course: Patient's mood and affect improved while on the psychiatric unit there is no homicidal suicidal or psychotic at time of discharge. His focus and concentration had improved. He did complain of some jitteriness of a vague nature. He was able to appreciate that he had made significant progress in regulating his mood and anxiety level - Diagnosis (1) ADHD (attention deficit hyperactivity disorder) Status: Suspected Priority: Medium (2) Bipolar 1 disorder Status: Suspected Priority: High (3) Overdose Status: Acute Priority: Medium (4) Polysubstance abuse Status: Chronic Priority: High (5) Suicidal ideation Status: Acute Priority: Low - Final Diagnosis (DSM 5) Condition upon Discharge: IMPROVED Disposition: HOME/ ROUTINE Follow-up Treatment Plan: patient seems somewhatless manicky and pressured Remains soaticand probably medication seeking. looks for quick resolution to his problems with medicato Case discussed wih father yesterday On 324 it is deemed that the patient is improving. He still gets easily distracted and gets anxious and is anxious to express all of his symptoms and wants to depend on a written summation. Seems to want to use his father as a goal between Prescriptions/Medication Reconciliation: Zolpidem [Ambien] 10 mg PO HS PRN #0 tab PRN Reason: Insomnia clonazePAM [Klonopin] 2 mg PO TID #0 tab lamoTRIgine [Lamictal] 50 mg PO DAILY #0 tab Atorvastatin [Lipitor] 20 mg PO DIN #0 tab Atorvastatin [Lipitor] 20 mg PO DIN #0 tab amLODIPine [Norvasc] 5 mg PO DAILY #0 tab Pantoprazole [Protonix EC Tab] 40 mg PO 0630 #0 ect Mirtazapine [Remeron] 45 mg PO HS #0 tab risperiDONE [RisperDAL Tab] 1 mg PO BID #0 tab QUEtiapine [Seroquel] 150 mg PO QAM #0 tab QUEtiapine [Seroquel XR] 300 mg PO HS PRN #0 ter PRN Reason: Insomnia buPROPion XL [Wellbutrin XL] 300 mg PO DAILY #0 t24
== END 2017-02-02 14:59 | disposition home or self-care (01) | DRG 430 ==
LOC: ED 17:34 → ERH 20:25 → PSYC 21:32
PROVIDERS: ADMIT Psychiatry & Neurology Addiction Medicine; ATTEND Psychiatry & Neurology Addiction Medicine
PROC: GZ3ZZZZ Medication Management (ICD-10-PCS; principal; 2017-01-26)
DX: F31.9 Bipolar disorder, unspecified (principal); F90.9 Attention-deficit hyperactivity disorder, unspecified type; T39.1X2A Poisoning by 4-Aminophenol derivatives, intentional self-harm, initial encounter; F41.8 Other specified anxiety disorders; I10 Essential (primary) hypertension; F12.10 Cannabis abuse, uncomplicated; K21.9 Gastro-esophageal reflux disease without esophagitis; E78.00 Pure hypercholesterolemia, unspecified; R51 Headache; F17.210 Nicotine dependence, cigarettes, uncomplicated; Z82.49 Family history of ischemic heart disease and other diseases of the circulatory system

== ENCOUNTER 2017-06-07 11:57 | Emergency (ER) | payer MEDICAID ==
[2017-06-07 11:58] VITALS: BMI 25.7
[2017-06-07 12:10] VITALS: TEMP 97.3
--- NOTE | 2017-06-07 13:23 | ED PDOC ---
Arrival/HPI - General Chief Complaint: Chest Pain Time Seen by Provider: 06/07/17 12:21 - History of Present Illness Narrative History of Present Illness (Text): 06/07/17 17:30 21yo male in the ER after a mechanical fall onto his chest 2 weeks ago. States he still has pain with palpation of the sternum. Denies any exertional chest pain, denies diff or pain with breathing. Denies other trauma or injury. No other complaints. Past Medical History - Provider Review Nursing Documentation Reviewed: Yes - Infectious Disease Hx of Infectious Diseases: None - Tetanus Immunization Tetanus Immunization: Unknown - Past Medical History Past Medical History: No Previous - Cardiac Hx Cardiac Disorders: No Hx Hypertension: No - Pulmonary Hx Respiratory Disorders: No Hx Tuberculosis: No - Neurological Hx Neurological Disorder: No HX Cerebrovascular Accident: No Hx Seizures: No - HEENT Hx HEENT Disorder: No - Renal Hx Renal Disorder: No - Endocrine/Metabolic Hx Endocrine Disorders: No - Hematological/Oncological Hx Blood Disorders: No Hx Cancer: No - Integumentary Hx Dermatological Disorder: No - Musculoskeletal/Rheumatological Hx Musculoskeletal Disorders: Yes - Gastrointestinal Hx Gastrointestinal Disorders: No Hx Gastroesophageal Reflux: Yes - Genitourinary/Gynecological Hx Genitourinary Disorders: No Hx Sexually Transmitted Diseases: No - Psychiatric Hx Psychophysiologic Disorder: Yes Hx Anxiety: Yes Hx Bipolar Disorder: Yes Hx Depression: Yes Hx Substance Use: No - Past Surgical History Past Surgical History: No Previous - Surgical History Hx Tonsillectomy: Yes Other/Comment: adenoidectomy - Anesthesia Hx Anesthesia: Yes Hx Anesthesia Reactions: No Hx Malignant Hyperthermia: No - Suicidal Assessment Feels Threatened In Home Enviroment: No Family/Social History Family/Social History: Unknown Family HX Smoking Status: Never Smoked Hx Alcohol Use: No Hx Substance Use: No Substance used: marijuana Hx Substance Use Treatment: No Allergies/Home Meds Allergies/Adverse Reactions: Allergies No Known Allergies Allergy (Verified 06/07/17 12:10) Home Medications: Home Meds Medication Instructions Recorded Confirmed Benztropine [Cogentin] 0.5 mg PO BID 06/07/17 06/07/17 Escitalopram [Lexapro] 10 mg PO DAILY 06/07/17 06/07/17 QUEtiapine [Seroquel] 150 mg PO HS PRN 06/07/17 06/07/17 risperiDONE [RisperDAL Tab] 2 mg PO DAILY 06/07/17 06/07/17 Physical Exam - Physical Exam Narrative Physical Exam (Text): - Review of Systems Constitutional: Normal. absent: Fatigue, Weight Change, Fevers Eyes: Normal ENT: denies sore throat, denies tristhmus Respiratory: sternal pain. absent: SOB, Cough, Sputum Cardiovascular: absent: Chest Pain, Palpitations, Syncope Gastrointestinal: Normal. absent: Abdominal Pain, Diarrhea, Nausea, Vomiting Genitourinary: Normal. absent: Dysuria, Frequency, Hematuria Musculoskeletal: Normal. absent: Arthralgias, Back Pain, Neck Pain Skin: no rashes, no erythema Neurological: absent: Focal Weakness Endocrine: Normal Hemo/Lymphatic: Normal Psychiatric: No suicidal or homicidal ideations Physical exam Patient appears age appropriate in no distress, speaking full sentences without difficulty Head atraumatic. No nasal bone deformity or tenderness, no facial or jaw pain/ swelling. No neck midline tenderness, thoracic and lumbar spine with no midline tenderness. Pt moving b/l upper and lower extremities without difficulty, 5/5 strength, with full active and passive ROM. Distal neurovasc fully intact. Abd soft/nt/nd, no hematomas, no peritoneal signs. Neg. pelvic rock. - Systems Exam Head: Present: Atraumatic, Normocephalic Pupils: Present: PERRL Extroacular Muscles: Present: EOMI Conjunctiva: Present: Normal Mouth: Present: Moist Mucous Membranes Neck: Present: Normal Range of Motion. No: MIDLINE TENDERNESS, Paraspinal Tenderness Respiratory/Chest: Present: Pain quality reproducible with sternum palpation. No crepitus. No bruising. Clear to Auscultation, Good Air Exchange. No: Respiratory Distress, Accessory Muscle Use, Tachypneic Cardiovascular: Present: Regular Rate and Rhythm, Normal S1, S2, Peripheal Pulses Present. No: Murmurs Abdomen: Present: Normal Bowel Sounds. No: Tenderness, Distention, Peritoneal Signs, Rebound, Guarding Back: Present: Normal Inspection. No: Midline Tenderness, Paraspinal Tenderness Upper Extremity: Present: Normal Inspection. No: Cyanosis, Edema Lower Extremity: Present: Normal Inspection. No: Edema Neurological: Present: GCS=15, Speech Normal, cranial nerves II through XII fully intact with no cerebellar abnormality, neurosensory fully intact. No focal neurological deficits. Skin: Present: Warm, Dry, Normal Color. No: Rashes Lymphatic: Present: OX3, NI, NC Psychiatric: Present: Alert, Oriented x 3, Normal Insight, Normal Concentration Vital Signs Reviewed: Yes Vital Signs Temp Pulse Resp BP Pulse Ox 06/07/17 13:44 60 15 116/57 L 98 06/07/17 12:06 97.3 F L 75 19 99 Temperature: Afebrile Blood Pressure: Normal Pulse: Regular Respiratory Rate: Normal Appearance: Positive for: Well-Appearing Pain Distress: None Mental Status: Positive for: Alert and Oriented X 3 Medical Decision Making ED Course and Treatment: 21yo male with sternal pain after a mechanical fall. pain reproducible with palpation does not appear in resp distress CXR and rib xrays show no acute fracture or PTx EKG shows sinus maxwell 55bpm, no st-segment elevations, normal intervals. Interpreted by me. Geotechnical Operating Engineer : Luis Alberto Walker MD PROCEDURE: Radiographs of the chest and bilateral ribs HISTORY: fall COMPARISON: Prior chest radiographs 01/27/2017. TECHNIQUE: Frontal radiograph of the chest and multiple oblique radiographs of the bilateral ribs were obtained. FINDINGS: RIGHT RIBS: No fracture or focal lesion visualized. LEFT RIBS: No fracture or focal lesion visualized. LUNGS: Clear. PLEURA: No pneumothorax or pleural fluid. CARDIOVASCULAR: Normal sized heart. No pulmonary vascular congestion. OTHER FINDINGS: None. IMPRESSION: Unremarkable radiographs of the chest and bilateral ribs. No rib fracture. pt instructed to take [id number] motrin or tylenol for pain and to f/u with PMD in 1-2 days pt in no distress and states he feels comfortable being dc'd home with outpatient f/u Pt states he understands to return to the ER right away for new or worsening symptoms or for inability to f/u with PMD or specialist as instructed. Patient states that he fully agrees with and understands discharge instructions. States that he agrees with the plan and disposition. Verbalized and repeated discharge instructions and plan. I have given the patient opportunity to ask any additional questions. - RAD Interpretation Radiology Orders: 06/07/17 12:21 RIBS BILATERAL W/PA CHEST [RAD] Stat Disposition/Present on Arrival - Present on Arrival Any Indicators Present on Arrival: No History of DVT/PE: No History of Uncontrolled Diabetes: No Urinary Catheter: No History of Decub. Ulcer: No History Surgical Site Infection Following: None - Disposition Have Diagnosis and Disposition been Completed?: Yes Diagnosis: Chest wall injury Disposition: HOME/ ROUTINE Disposition Time: 13:20 Patient Plan: Discharge Condition: GOOD Discharge Instructions (ExitCare): Rib Contusion (ED) Additional Instructions: PLEASE RETURN TO THE EMERGENCY DEPARTMENT FOR NEW OR WORSENING SYMPTOMS. RETURN RIGHT AWAY IF YOU CANNOT FOLLOW UP WITH YOUR PRIMARY CARE DOCTOR, CLINIC, OR SPECIALIST IN 1-2 DAYS. PLEASE TAKE [id number] MOTRIN OR TYLENOL FOR PAIN Referrals: Dung Sosa, DO [Primary Care Provider] - Follow up with primary Forms: [employer] ([place])
[2017-06-07 13:48] VITALS: BP 116/57; PULSE 60; RESP 15; O2SAT 98
--- NOTE | 2017-06-07 14:26 | RAD ---
PROCEDURE: Radiographs of the chest and bilateral ribs HISTORY: fall COMPARISON: Prior chest radiographs 01/27/2017. TECHNIQUE: Frontal radiograph of the chest and multiple oblique radiographs of the bilateral ribs were obtained. FINDINGS: RIGHT RIBS: No fracture or focal lesion visualized. LEFT RIBS: No fracture or focal lesion visualized. LUNGS: Clear. PLEURA: No pneumothorax or pleural fluid. CARDIOVASCULAR: Normal sized heart. No pulmonary vascular congestion. OTHER FINDINGS: None. IMPRESSION: Unremarkable radiographs of the chest and bilateral ribs. No rib fracture.
--- NOTE | 2017-06-08 18:44 | CARD ---
APPROVED REPORT EKG Measurement Heart [id number] <Conclusion> Poor data quality, interpretation may be adversely affected Sinus bradycardia Otherwise normal ECG
== END 2017-06-07 13:52 | disposition home or self-care (01) ==
LOC: ED 11:57
DX: S29.9XXA Unspecified injury of thorax, initial encounter (principal); W18.30XA Fall on same level, unspecified, initial encounter; Y93.9 Activity, unspecified; Y92.9 Unspecified place or not applicable

== ENCOUNTER 2017-06-17 11:42 | Inpatient (IN) | payer MEDICAID ==
[2017-06-17 11:42] VITALS: BMI 25.7
--- NOTE | 2017-06-17 12:32 | ED PDOC ---
Arrival/HPI - General Chief Complaint: Psychiatric Evaluation Time Seen by Provider: 06/17/17 11:59 Historian: Patient - History of Present Illness Narrative History of Present Illness (Text): 06/17/17 12:05 A 21 year old male, whose past medical history includes bipolar disorder and depression, presents to the emergency department complaining of suicidal ideation and depression since this morning. Patient reports that after having woken up this morning, he began to think of ways to harm himself. Patient has not attempted suicide and has taken no pills. Patient denies of homicidal ideation, auditory hallucinations, or any other complaints. Also denies of alcohol abuse and drug abuse. Currently is taking medication for bipolar disorder prescribed to him by PMD. PMD: Dr. Sosa Time/Duration: Other (when patient woke up this morning) Symptom Onset: Sudden Symptom Course: Unchanged Activities at Onset: Rest, Light Context: Home Past Medical History - Provider Review Nursing Documentation Reviewed: Yes - Infectious Disease Hx of Infectious Diseases: None - Tetanus Immunization Tetanus Immunization: Unknown - Past Medical History Past Medical History: No Previous - Cardiac Hx Cardiac Disorders: No Hx Hypertension: No - Pulmonary Hx Respiratory Disorders: No Hx Tuberculosis: No - Neurological Hx Neurological Disorder: No HX Cerebrovascular Accident: No Hx Seizures: No - HEENT Hx HEENT Disorder: No - Renal Hx Renal Disorder: No - Endocrine/Metabolic Hx Endocrine Disorders: No - Hematological/Oncological Hx Blood Disorders: No Hx Cancer: No - Integumentary Hx Dermatological Disorder: No - Musculoskeletal/Rheumatological Hx Musculoskeletal Disorders: Yes - Gastrointestinal Hx Gastrointestinal Disorders: No Hx Gastroesophageal Reflux: Yes - Genitourinary/Gynecological Hx Genitourinary Disorders: No Hx Sexually Transmitted Diseases: No - Psychiatric Hx Psychophysiologic Disorder: Yes Hx Anxiety: Yes Hx Bipolar Disorder: Yes Hx Depression: Yes Hx Substance Use: No - Past Surgical History Past Surgical History: No Previous - Surgical History Hx Tonsillectomy: Yes Other/Comment: plate in jaw, adenoidectomy - Anesthesia Hx Anesthesia: Yes Hx Anesthesia Reactions: No Hx Malignant Hyperthermia: No - Suicidal Assessment Feels Threatened In Home Enviroment: No Family/Social History - Physician Review Nursing Documentation Reviewed: Yes Family/Social History: No Known Family HX Smoking Status: Never Smoked Hx Alcohol Use: No Hx Substance Use: No Substance used: marijuana Hx Substance Use Treatment: No Allergies/Home Meds Allergies/Adverse Reactions: Allergies No Known Allergies Allergy (Verified 06/17/17 11:54) Home Medications: Home Meds Medication Instructions Recorded Confirmed Benztropine [Cogentin] 0.5 mg PO BID 06/07/17 06/17/17 Escitalopram [Lexapro] 10 mg PO DAILY 06/07/17 06/17/17 QUEtiapine [Seroquel] 150 mg PO HS PRN 06/07/17 06/17/17 risperiDONE [RisperDAL Tab] 2 mg PO DAILY 06/07/17 06/17/17 Clonazepam [Klonopin] 2 mg PO TID 06/17/17 06/17/17 Review of Systems - Physician Review All systems were reviewed & negative as marked: Yes - Review of Systems Neurological: absent: Headache, Dizziness Psychiatric: Suicidal Ideation. absent: Other (homicidal ideation; auditory hallucinations) Physical Exam Vital Signs Reviewed: Yes Vital Signs Temp Pulse Resp BP Pulse Ox 06/17/17 12:53 98.7 F 80 19 137/78 96 06/17/17 11:57 98.1 F 89 18 148/85 99 Temperature: Afebrile Blood Pressure: Normal Pulse: Regular Respiratory Rate: Normal Appearance: Positive for: Well-Appearing, Non-Toxic Pain Distress: None Mental Status: Positive for: Alert and Oriented X 3 - Systems Exam Head: Present: Atraumatic, Normocephalic Pupils: Present: PERRL Extroacular Muscles: Present: EOMI Conjunctiva: Present: Normal Mouth: Present: Moist Mucous Membranes Neck: Present: Normal Range of Motion Respiratory/Chest: Present: Clear to Auscultation, Good Air Exchange. No: Respiratory Distress, Accessory Muscle Use Cardiovascular: Present: Regular Rate and Rhythm, Normal S1, S2. No: Murmurs Abdomen: Present: Normal Bowel Sounds. No: Tenderness, Distention, Peritoneal Signs Back: Present: Normal Inspection Upper Extremity: Present: Normal Inspection. No: Cyanosis, Edema Lower Extremity: Present: Normal Inspection. No: Edema Neurological: Present: GCS=15, CN II-XII Intact, Speech Normal Skin: Present: Warm, Dry, Normal Color. No: Rashes Psychiatric: Present: Suicidal Ideation. No: Homicidal Ideation, Intoxicated Medical Decision Making ED Course and Treatment: 06/17/17 12:15 Impression: 21 year old male with suicidal ideation and depression. Normal physical exam. DDx: Suicidal Ideation Plan: -- EKG -- Labs -- Urinalysis -- Reassess and disposition Prior Visits: Notes and results from previous visits were reviewed. Patient was last seen in the emergency department on 06/07/2017 came into ER after a mechanical fall onto his chest. Patient was discharged home. Progress Notes: 06/16/2017 12:17 Reviewed Rib Chest X-ray from 06/07/2017. 06/17/17 12:55 EKG: Ordered, reviewed, and independently interpreted the EKG. Rate : 78 BPM Rhythm : NSR Interpretation : No ST-segment elevations or depressions, no T-wave inversions, normal intervals. Comparison : No previous EKG for comparison. 06/17/17 13:20 Patient is medically cleared for psych evaluation. Discussed case with REJI Kumari who is pending disposition. - Lab Interpretations Lab Results: 06/17/17 12:55 Lab Results 06/17/17 12:55: Salicylates < 1 L, Acetaminophen < 10.0 L 06/17/17 12:55: Urine Color Yellow, Urine Appearance Clear, Urine pH 6.5, Ur Specific [place] 1.020, Urine Protein 30 H, Urine Glucose (UA) Negative, Urine Ketones Negative, Urine Blood Negative, Urine Nitrate Negative, Urine Bilirubin Negative, Urine Urobilinogen 1.0 H, Ur Leukocyte Esterase Negative, Urine RBC Pending, Urine WBC Pending 06/17/17 12:55: WBC 7.3, RBC 5.60, Hgb 17.5, Hct 47.5, MCV 84.8, MCH 31.3, MCHC 36.8, RDW 12.7, Plt Count 247, MPV 9.9, Gran % 59.9, Lymph % (Auto) 30.9, Cook % (Auto) 8.2 H, Eos % (Auto) 0.7 L, Baso % (Auto) 0.3, Gran # 4.40, Lymph # 2.3 , Cook # 0.6, Eos # 0.1, Baso # 0.02 I have reviewed the lab results: Yes Interpretation: All labs normal - RAD Interpretation Radiology Orders: CXR reviewed from previous visit Financial Supervisor: ED Physician - Scribe Statement The provider has reviewed the documentation as recorded by the Paz Myrick Provider Scribe Attestation: All medical record entries made by the Scribe were at my direction and personally dictated by me. I have reviewed the chart and agree that the record accurately reflects my personal performance of the history, physical exam, medical decision making, and the department course for this patient. I have also personally directed, reviewed, and agree with the discharge instructions and disposition. Disposition/Present on Arrival - Present on Arrival Any Indicators Present on Arrival: No History of DVT/PE: No History of Uncontrolled Diabetes: No Urinary Catheter: No History of Decub. Ulcer: No History Surgical Site Infection Following: None - Disposition Have Diagnosis and Disposition been Completed?: Yes Diagnosis: Suicidal ideation Disposition: HOSPITALIZED Disposition Time: 13:22 Patient Plan: Admission Patient Problems: Current Active Problems Problem Status Onset Suicidal ideation Acute Condition: FAIR Referrals: Dung Sosa DO [Primary Care Provider] - Follow up with primary Forms: [email or web address] (Bengali)
[2017-06-17 13:12] LABS: BASO # 0.02 K/mm3 (0.0-2.0); BASO % 0.3 % (0.0-3.0); EOS # 0.1 (0.0-0.7); EOS % 0.7 % (1.5-5.0); GRAN % 59.9 % (50.0-68.0); HEMOGLOBIN 17.5 g/dL (14.0-18.0); LYMPH # 2.3 (1.2-3.4); LYMPH % 30.9 % (22.0-35.0); MEAN CELL VOLUME 84.8 fl (80.0-105.0); MEAN CORPUSCULAR HEMOGLOBIN 31.3 pg (25.0-35.0); MEAN CORPUSCULAR HGB CONC 36.8 g/dl (31.0-37.0); MEAN PLATELET VOLUME 9.9 fl (7.0-11.0); MONO # 0.6 (0.1-0.6); MONO % 8.2 % (1.0-6.0); PLATELET COUNT 247 10^3/uL (120.0-450.0); RED CELL DISTRIBUTION WIDTH 12.7 % (11.5-14.5); WHITE BLOOD COUNT 7.3 10^3/ul (4.5-11.0)
[2017-06-17 13:23] LABS: PH,URINE 6.5 (4.7-8.0); URINE BILIRUBIN NEGATIVE (NEGATIVE); URINE BLOOD NEGATIVE (NEGATIVE); URINE COLOR YELLOW (YELLOW); URINE GLUCOSE (UA) NEGATIVE (NEGATIVE); URINE LEUKOCYTE ESTERASE NEGATIVE Leu/uL (NEGATIVE); URINE NITRATE NEGATIVE (NEGATIVE); URINE PROTEIN 30 mg/dL (<30 mg/dL)
[2017-06-17 13:24] LABS: URINE APPEARANCE CLEAR (CLEAR)
[2017-06-17 13:26] LABS: ACETAMINOPHEN < 10.0 ug/ml (10.0-20.0); SALICYLATE < 1 mg/dL (2.0-20.0)
[2017-06-17 13:29] LABS: BLOOD UREA NITROGEN 16 mg/dL (7-21); CALCIUM 9.7 mg/dL (8.4-10.5); GFR AFRICAN-AMERICAN > 60; GFR NON-AFRICAN AMERICAN > 60
[2017-06-17 13:30] LABS: ALB/GLOB RATIO 1.5 (1.1-1.8); ALT/SGPT 26 U/L (7-56); AST/SGOT 20 U/L (15-59)
[2017-06-17 13:31] LABS: URINE RBC NEGATIVE /hpf (0-2); URINE WBC 0 - 2 /hpf (0-6)
[2017-06-17 13:35] LABS: BARBITURATES, UR NEGATIVE (NEGATIVE); BENZODIAZEPINES, UR POSITIVE (NEGATIVE); OPIATES, UR NEGATIVE (NEGATIVE); PHENCYCLIDINE, UR NEGATIVE (NEGATIVE)
[2017-06-17 18:28] VITALS: O2SAT 99
[2017-06-17] MEDS ORDERED: Magnesium Hydroxide Susp 30 ml UD PO PRN (20:40)
[2017-06-17] MEDS ORDERED: Alum-Mag Hydrox-Simethicone Susp (30 mL) PO PRN (20:40)
--- NOTE | 2017-06-17 23:47 | PCM.BM ---
<Annika Sprague - Last Filed: 06/18/17 02:24> Treatment Plan Problems - Problems identified on initial assessmt DEPRESSION Date Initiated: 06/17/17 Time Initiated: 20:00 Assessment reference: NA Status: Active ANXIETY Date Initiated: 06/17/17 Assessment reference: NA Status: Active MEDICATION NON ADHERENCE Date Initiated: 06/17/17 Time Initiated: 20:00 Assessment reference: NA Status: Active SUICIDAL THOUGHTS Date Initiated: 06/17/17 Time Initiated: 20:00 Assessment reference: NA Status: Active (Hx of suicidal attempts OD some medications..) Treatment assets and liabiliti Patient Assests: adapts well, cooperative, educated, motivated, self-reliant, ADL independent, physically healthy, good support system, negotiates basic needs , good past tx response, cognitively intact Patient Liabilities: financial problems, substance abuse - Milieu Protocol Maintain good personal hygiene: daily Encourage regular showers, every shift Remind patient to perform daily oral care, every shift Assist patient to perform ADL's Maintain personal safety: every shift Educate patient to report safety concerns to staff, every shift Monitor environment for contraband/sharps Medication safety: Monitor for expected outcome, potential side effects: every shift, Assess barriers to learning: every shift, Assess readiness for medication education: every shift Family Contact Family involvement: Family/SO is involved Family contact: Patient agrees to contact Discharge/Continuing Care - Education Needs Education Needs: Patient Medication, Patient Diagnosis/Disease Process, Patient Coping Skills, Patient Health Practices/Safety - Discharge Discharge Criteria: Tolerates medication w/o severe side effects, Free of Suicidal thoughts, Normal sleep pattern <Rusty Colvin - Last Filed: 06/19/17 12:08> - Milieu Protocol Maintain good personal hygiene: daily Encourage regular showers, daily Remind patient to perform daily oral care, daily Assist patient to perform ADL's Maintain personal safety: daily Educate patient to report safety concerns to staff, daily Monitor environment for contraband/sharps Medication safety: Monitor for expected outcome, potential side effects: daily, Assess barriers to learning: daily, Assess readiness for medication education: daily <Gracia Shukla - Last Filed: 06/19/17 16:40> - Diagnosis (1) Anxiety Status: Acute Interventions: 06/19/17 16:39 Psychoeducation Psychopharmacology/adjustment of medications as needed/ monitoring possible side effects Evaluate pt on daily basis Compliance with medications and follow up appointments Suicide and homicide risk assessment and prevention, coping strategies, safety plan Reduction of symptoms Relaxation techniques and breathing exercises Improve functional status Family intervention As outpatient: cognitive behavioral therapy (2) Polysubstance abuse Status: Chronic Interventions: 06/19/17 16:40 Monitoring withdrawal symptoms Medical detoxification Pharmacotherapy for alcohol/benzos/opioid dependence Maintaining sobriety Relapse prevention Possible rehabilitation Motivational interviewing 12-step programs: AA meetings (3) ADHD (attention deficit hyperactivity disorder) Status: Suspected Interventions: 06/19/17 16:39 med management (4) Bipolar 1 disorder Status: Suspected Interventions: 06/19/17 16:39 Psychoeducation Psychopharmacology/adjustment of medications as needed/ monitoring possible side effects Monitor blood level of mood stabilizers Evaluate pt on daily basis Compliance with medications and follow up appointments Suicide and homicide risk assessment and prevention, coping strategies, safety plan Relapse prevention Reduction of symptoms Improve functional status Family intervention As outpatient: cognitive behavioral therapy
--- NOTE | 2017-06-18 00:48 | CARD ---
APPROVED REPORT EKG Measurement Heart [id number] <Conclusion> Normal sinus rhythm Normal ECG
--- NOTE | 2017-06-18 04:45 | PCM.BM ---
Treatment Plan Problems - Problems identified on initial assessmt DEPRESSION Date Initiated: 06/17/17 Time Initiated: 20:00 Assessment reference: NA Status: Active ANXIETY Date Initiated: 06/17/17 Assessment reference: NA Status: Active MEDICATION NON ADHERENCE Date Initiated: 06/17/17 Time Initiated: 20:00 Assessment reference: NA Status: Active SUICIDAL THOUGHTS Date Initiated: 06/17/17 Time Initiated: 20:00 Assessment reference: NA Status: Active (Hx of suicidal attempts OD some medications..) Treatment assets and liabiliti Patient Assests: adapts well, cooperative, educated, motivated, self-reliant, ADL independent, physically healthy, good support system, negotiates basic needs , good past tx response, cognitively intact Patient Liabilities: financial problems, substance abuse - Milieu Protocol Maintain good personal hygiene: daily Encourage regular showers, every shift Remind patient to perform daily oral care, every shift Assist patient to perform ADL's Maintain personal safety: every shift Educate patient to report safety concerns to staff, every shift Monitor environment for contraband/sharps Medication safety: Monitor for expected outcome, potential side effects: every shift, Assess barriers to learning: every shift, Assess readiness for medication education: every shift Family Contact Family involvement: Family/SO is involved Family contact: Patient agrees to contact Discharge/Continuing Care - Education Needs Education Needs: Patient Medication, Patient Diagnosis/Disease Process, Patient Coping Skills, Patient Health Practices/Safety - Discharge Discharge Criteria: Tolerates medication w/o severe side effects, Free of Suicidal thoughts, Normal sleep pattern
[2017-06-18 08:52] LABS: GLUCOSE,FASTING 94 mg/dL (65-110); HDL CHOLESTEROL 35 mg/dL (29-60); LDL CHOLESTEROL 166 mg/dL (0-129)
[2017-06-18] MEDS: buPROPion 300 mg/24 Hours XL Tab PO SCH (09:41)
--- NOTE | 2017-06-18 16:12 | PCM.PSYCH ---
Initial Psychiatric Evaluation - Initial Psychiatric Evaluation Type of Admission: Voluntary Legal Status: Capacity (atient has capacity to sign consent for treatment) Chief Complaint (in patient's own words): "I was not doing that well, I had suicidal ideation with a plan to overdose on medications, I told my father, he advised me to come to the hospital" Patient's Reaction to Hospitalization: patient was admitted to the psychiatric inpatient unit for evaluation and stabilization of worsening depression, possible suicidal ideation with a plan to overdose on medications. History of Present Illness and Precipitating Events: shortly patient is 21 years old male, self reported history of ADHD, polysubstance abuse and dependence, 2 previous psychiatric admissions, history of 6 detoxes. Patient was admitted that the psychiatric inpatient unit for evaluation and stabilization of mood symptoms inability to function, irritability, depressive symptoms, possible suicidal ideation with a plan to overdose on medications, patient needs further evaluation and stabilization, medication titration. patient is very familiar to this unit from 2 previous admissions, presented to have fair personal hygiene, good ADLs. patient said that he was not following up with outpatient psychiatrist, primary care physician Dr. Sosa was prescribing all of his medications. Patient reported for past week or so she was feeling more depressed, hopeless, patient said "I was not feeling that well, I asked my father to bring me to the hospital because he had suicidal plan". patient reported that he was compliant with the medications, but he felt "Wellbutrin is not working for me anymore". Patient reported that he was not able to sleep, had poor appetite, feeling of hopelessness, helplessness, "I was feeling my life is not going the way it should go". pt has hypomania in the past, pt said now he feels irritable and had racing thoughts which prevent him from sleeping at night. pt said that he was staying sober for the past four months, but he smoked weed two days ago. pt denied any substances abuse. "I am taking medications which prescribed to me". pt reported to feel anxious and having panic attacks. Past Psych h/o: Patient reported being diagnosed with ADHD since age of 12 and he was on Concerta. one suicidal attempt about a year ago, pt OD on Alive. Patient has h/o polysubstance abuse and dependence:including mushrooms, pain killers and Xanax alcohol, PCP, cocaine, Heroin IV, denied using for the past 4months. Pt was in six detoxes, 3 in [facility] 1 [facility], and one in [place]. Drug of choice were pain killers and xanax. Pt started to use drugs at age of 14-16. Pt smokes 5-10 cig a day, nicotine patch offered. Smoking Cessation Counseling: The patient was counseled as to the multiple risks to his/her health from continued use of tobacco products. It was explained that continuing to smoke may lead to multiple short and ad terminal makeup operator negative health consequences, including but not limited to mouth/esophageal /lung cancer, COPD, and heart disease. He/she states he/she understands these risks, and also understands the options and resources available to him/her to help him/her stop smoking. Nicotine replacement therapy, local hotlines, and local resources were discussed as viable options for helping him/her stop his/her tobacco use. The total time spent counseling the patient regarding tobacco cessation was 3 minutes Family h/o: strong family h/o substance use as well as bipolar. Medical issues: pt has metal plate on his jaw, h/o dyslipidemia, medical consult appreciated Pt's pharmacy was called [facility]: Risperdal 1 mg daily Seroquel 50 mg at the nighttime Wellbutrin XL 300 mg daily, 1 refill left tramadol Tylenol 3 Klonopin 2 mg 3 times a day last filled in May 20, 1 month supply was given, no refills left Lipitor 20 mg at the nighttime Propranolol 10 mg twice a day benztropine 0.5 mg twice a day Current Medications: Active Medications Generic Name Dose Route Start Last Admin Trade Name Joseq PRN Reason Stop Dose Admin Acetaminophen 650 mg 06/17/17 20:40 Tylenol 325mg Tab PO Q4H PRN Pain, Mild (1-3) Al Hydrox/Mg Hydrox/Simethicone 30 ml 06/17/17 20:40 Maalox Plus 30 Ml PO DAILY PRN Upset Stomach Atorvastatin Calcium 20 mg 06/18/17 17:00 Lipitor PO DIN CHRISSY Bupropion HCl 300 mg 06/18/17 08:00 06/18/17 09:41 Wellbutrin Xl PO 300 mg DAILY CHRISSY Administration Clonazepam 2 mg 06/18/17 18:00 Klonopin PO TID CHRISSY Protocol Hydroxyzine Pamoate 50 mg 06/17/17 20:36 06/17/17 21:12 Vistaril PO 50 mg Q6 PRN Administration Anxiety Protocol Magnesium Hydroxide 30 ml 06/17/17 20:40 Milk Of Magnesia PO DAILY PRN Constipation Nicotine 1 patch 06/18/17 15:30 Nicoderm Cq TD DAILY CHRISSY Propranolol HCl 10 mg 06/18/17 18:00 Inderal PO TID CHRISSY Quetiapine Fumarate 200 mg 06/17/17 22:00 06/17/17 21:11 Seroquel PO 200 mg HS CHRISSY Administration Protocol Trazodone HCl 50 mg 06/17/17 22:00 06/17/17 21:11 Desyrel PO 50 mg HS CHRISSY Administration Past Psychiatric History - Past Psychiatric History Previous Treatment History: Inpatient Prior Professional Help: see HPI Prior Psychiatric Treatment: see HPI At what hospital: see HPI Duration: see HPI Nature of Treatment: see HPI Explanation of prior treatment: see HPI History of Abuse: see HPI History of ETOH/Drug Use: see HPI History of Family Illness: see HPI Pertinent Medical Hx (Current Medical&Sleep Prob, Allergies): Allergies Allergy/AdvReac Type Severity Reaction Status Date / Time No Known Allergies Allergy Verified 06/18/17 02:19 Atorvastatin [Lipitor] 20 mg PO DIN #0 tab 02/02/17 buPROPion XL [Wellbutrin XL] 300 mg PO DAILY #0 t24 02/02/17 Benztropine [Cogentin] 0.5 mg PO BID 06/07/17 Escitalopram [Lexapro] 10 mg PO DAILY 06/07/17 QUEtiapine [Seroquel] 150 mg PO HS PRN 06/07/17 risperiDONE [RisperDAL Tab] 2 mg PO DAILY 06/07/17 Clonazepam [Klonopin] 2 mg PO TID 06/17/17 info is not correct, see HPI Review of Systems - Review of Systems Systems not reviewed;Unavailable: Acuity of Condition - EENT Eyes: As Per HPI Ears: As Per HPI Nose/Mouth/Throat: As Per HPI - Cardiovascular Cardiovascular: As Per HPI - Respiratory Respiratory: As Per HPI - Gastrointestinal Gastrointestinal: As Per HPI - Genitourinary Genitourinary: As Per HPI - Reproductive: Male Reproductive:Male: As Per HPI - Musculoskeletal Musculoskeletal: As Par HPI - Integumentary Integumentary: As Per HPI - Neurological Neurological: As Per HPI - Psychiatric Psychiatric: As Per HPI - Endocrine Endocrine: As Per HPI - Hematologic/Lymphatic Hematologic: As Per HPI Mental Status Examination - Personal Presentation Personal Presentation: Looks stated age - Affect Affect: Constricted - Motor Activity Motor Activity: Calm - Reliability in Providing Information Reliability in Providing Information: Fair - Speech Speech: Organized - Mood Mood: Depressed, Anxious - Formal Thought Process Formal Thought Process: No Impairment - Obsessions/Compulsions Obsessions: None Compulsions: None - Cognitive Functions Orientation: Person, Place, Situation Sensorium: Alert Attention/Concentration: Easily distracted Abstract Thinking: [place] Estimate of Intelligence: Average Judgement: Intact, as evidence by: Insight regarding need for hospitalization - Risk Risk: Suicidal, Withdrawal, Self-mutilation, Diminished functioning - Strength & Assets Inventory Strength & Assets Inventory: Intelligence, Family support, Skills, Cooperative - Limitations Limitations: Other (patient has history of suicidal attempts, history of polysubstance abuse and dependence) DSM 5 DX - DSM 5 DSM 5 Diagnosis: as per history bipolar disorder As per history generalized anxiety disorder As per historypanic disorder As per history ADHD As per history of substance abuse and dependence - Recommended/Plan of Treatment Treatment Recommendations and Plan of Treatment: milieu, structure, supportive therapy Pt's pharmacy [facility]: Risperdal 1 mg daily will be discontinued Seroquel will be increased to 200 mg at the nighttime for mood stabilization Wellbutrin XL 300 mg daily will be continued for depression as well as ADHD tramadol ill be not continued Tylenol 3 ill be not continued Klonopin 2 mg 3 times a day will be resumed because patient has history of benzodiazepines withdrawals Lipitor 20 mg at the nighttime ill be continued Propranolol 10 mg twice a day will be continued benztropine 0.5 mg twice a day will be discontinued medical consult SW evaluation family involvement Projected ELOS: 7days Prognosis: fair Discharge Plan and Discharge Criteria: Pt will be not depressed or manic, will be more hopeful, will be not psychotic or anxious, will be not having thoughts of harming self or others, will be tolerating medications well, will not have major side effects, will be able to function, will not pose threat to self or others. - Smoking Cessation Smoking Cessation Initiated: Yes
--- NOTE | 2017-06-18 20:12 | CON ---
HISTORY OF PRESENT ILLNESS: I know Luis Alberto very well from the office, a longtime patient. He was seen in the ER last night and I saw him this morning in psychiatric unit. He has been very depressed. Lately, he has also been out of his Klonopin. He has been very anxious and thinking a lot. This is a 21-year-old man with a past medical history of bipolar, depression and anxiety. He had some thoughts of suicidal ideation. He has had some of his medications and I think that is a part of it. He has been ruminating on a lot of things. He did not sleep well last night. He has a history of GERD, body aches from time to time anxiety, bipolar and depression. He had a platelet draw and an adenoidectomy and tonsillectomy surgeries. FAMILY HISTORY: No known family history. SOCIAL HISTORY: Never smoke. No alcohol. Does do marijuana every now and then. ALLERGIES: NO KNOWN DRUG ALLERGIES. MEDICATIONS: He is on Cogentin, Lexapro, Seroquel, Risperdal, Klonopin. He has been out of his medications. REVIEW OF SYSTEMS: No headache. No dizziness. No change in vision. No changing in hearing. No sore throat. No chest pain. No palpitations. No shortness of breath. No coughing. No abdominal pain, nausea, vomiting, constipation or diarrhea. No extremity issues. PHYSICAL EXAMINATION: GENERAL: He is just worried, depressed and anxious all at the same time. VITAL SIGNS: He has a 98.7 temperature, 80 pulse, 19 respiratory rate, 137/70 blood pressure, 96% O2 sat on room air. HEENT: Head is atraumatic and normocephalic. Extraocular muscles are intact. Pupils are equal and reactive to light and accommodation. Throat is moist. NECK: Supple. HEART: Regular rate. Normal S1 and S2. LUNGS: Clear to auscultation bilaterally. ABDOMEN: Soft, nontender. Positive bowel sounds. No guarding, no rebound, no CVA tenderness. EXTREMITIES: No edema. He can move all 4 extremities well. NEUROLOGIC: GCS is 15. Cranial nerves II through XII are grossly intact. Speech is normal. He can stick out his tongue midline. He closes his eyes tight. He raises arms over his head. He can touch my finger in an age pattern. He could move his eyes in an age pattern. He understands the yellow, green and red colors. He is in good spirits. Neurologically, he is intact. SKIN: Warm and dry. LYMPH: Thyroid midline. No palpable lymphadenopathy appreciated. He is calm at this time. He is well appearing and nontoxic and skipped back on his medications. LABORATORY DATA: He had test done, he had 7.3 white count, 17.5 hemoglobin, 47.5 hematocrit with 247 platelets. He had 141 sodium, potassium 4.3, BUN 16, creatinine 0.9. GFR is greater than 60. Sugar is 93, calcium 9.7, total bilirubin is 2.2, AST is 20, ALT is 26, alkaline phosphatase 85, total protein is 8.3, globulin 3.4, albumin is 5. Urine is clean. Toxicology is positive for benzos, cocaine, which he did not tell me about, and marijuana. I will discussed that with him, so he is also having drug abuse. MEDICATIONS: He is currently on Desyrel, Maalox, milk of magnesia, Seroquel, Tylenol, Vistaril, and Wellbutrin. PLAN: He is here for depression, drug abuse, anxiety. I will follow. Dung Sosa DO
[2017-06-19] MEDS: buPROPion 300 mg/24 Hours XL Tab PO SCH (08:20)
--- NOTE | 2017-06-19 13:18 | PN ---
SUBJECTIVE: I saw him this morning. He tells me that he is very rested. He went to bed last night and slept very well, had a great night sleep. He tells me he feels refreshed. He feels back to normal. He is hungry. He is in good spirits. He is on Desyrel, Inderal, Klonopin, Lipitor, Maalox, milk of magnesia, Nicoderm, Seroquel, Tylenol, Vistaril, and Wellbutrin. He is in good spirits. He is happy. He is hungry. No complaints this morning. PHYSICAL EXAMINATION VITAL SIGNS: 97.2 temp, 75 pulse, 124/76 blood pressure, and 20 respiratory rate. HEENT: His head is atraumatic, normocephalic. HEART: His heart is regular rate. LUNGS: Clear to auscultation. ABDOMEN: Soft. EXTREMITIES: No edema. LABORATORY DATA: He had lab with a 7.3 white count, 17.5 hemoglobin, and 247 platelets. 141 sodium, potassium 4.3, BUN 16, creatinine is 0.9, AST is 20, ALT is 26, triglycerides are 214, cholesterol is 226. Thyroid was good at 1.78. Urine was clean. His toxicology is interesting. I went over this with him. It shows cocaine and marijuana. He tells me he smokes marijuana. He does not do cocaine, does not know how that was there, and he told me he would tell me if he was doing that. Continue with regards to treatment and care with psychiatric adjustment and medication. I am happy he had a very good night sleep and feels rested. Continue to watch him medically. Continue with treatment and care on the patient with depression, bipolar, drug abuse, anxiety. Dung Sosa DO
--- NOTE | 2017-06-19 15:29 | PCM.PYCHPN ---
Psychiatric Progress Note - Psychiatric Progress Note Patient seen today, length of contact: 30 minutes Patient Chief Complaint: "I M very depressed, hopeless" Problems Identified/Issues Discussed: Suicide/ homicide prevention, past psychiatric h/o, current psychiatric symptoms , medical problems, risk/benefits and alternatives of medications, medications compliance, coping strategies, substance abuse h/o, relapse prevention, importance of follow up with psychiatrist and therapist, discharge plan. Medical Problems: dyslipidemia, hypertension Diagnostic Results: 06/17/17 12:55 06/17/17 12:55 Lab Results 06/18/17 08:00: RPR Nonreactive 06/18/17 08:00: TSH 3rd Generation 1.78 06/18/17 08:00: Fasting Glucose 94, Triglycerides 214 H, Cholesterol 226 H, LDL Cholesterol Direct 166 H, HDL Cholesterol 35 06/17/17 12:55: Urine Opiates Screen Negative, Urine Methadone Screen Negative, Ur Barbiturates Screen Negative, Ur Phencyclidine Scrn Negative, Ur Amphetamines Screen Negative, U Benzodiazepines Scrn Positive H, U Oth Cocaine Metabols Positive H, U Cannabinoids Screen Positive H 06/17/17 12:55: Alcohol, Quantitative < 10 06/17/17 12:55: Salicylates < 1 L, Acetaminophen < 10.0 L 06/17/17 12:55: Sodium 141, Potassium 4.3, Chloride 102, Carbon Dioxide 22, Anion Gap 21 H, BUN 16, Creatinine 0.9, Est GFR ( Amer) > 60, Est GFR ( Non-Af Amer) > 60, Random Glucose 93, Calcium 9.7, Total Bilirubin 2.2 H, AST 20 , ALT 26, Alkaline Phosphatase 85, Total Protein 8.3, Albumin 5.0 H, Globulin 3.4, Albumin/Globulin Ratio 1.5 06/17/17 12:55: Urine Color Yellow, Urine Appearance Clear, Urine pH 6.5, Ur Specific [place] 1.020, Urine Protein 30 H, Urine Glucose (UA) Negative, Urine Ketones Negative, Urine Blood Negative, Urine Nitrate Negative, Urine Bilirubin Negative, Urine Urobilinogen 1.0 H, Ur Leukocyte Esterase Negative, Urine RBC Negative, Urine WBC 0 - 2 06/17/17 12:55: WBC 7.3, RBC 5.60, Hgb 17.5, Hct 47.5, MCV 84.8, MCH 31.3, MCHC 36.8, RDW 12.7, Plt Count 247, MPV 9.9, Gran % 59.9, Lymph % (Auto) 30.9, [place] % (Auto) 8.2 H, Eos % (Auto) 0.7 L, Baso % (Auto) 0.3, Gran # 4.40, Lymph # 2.3 , [place] # 0.6, Eos # 0.1, Baso # 0.02 Vital Signs Temp Pulse Resp BP Pulse Ox 06/19/17 13:28 75 124/76 06/19/17 08:21 75 124/76 06/19/17 07:47 97.2 F L 75 20 124/76 06/18/17 21:59 77 145/89 06/18/17 17:55 77 145/89 06/18/17 07:24 98.0 F 71 20 139/84 06/17/17 21:22 99.0 F 93 H 20 145/94 H 06/17/17 18:28 80 18 147/89 99 06/17/17 16:30 98.6 F 90 16 149/92 H 06/17/17 12:53 98.7 F 80 19 137/78 96 06/17/17 11:57 98.1 F 89 18 148/85 99 DSM 5 Symptoms Update: shortly patient is 21 years old male, self reported history of ADHD, polysubstance abuse and dependence, 2 previous psychiatric admissions, history of 6 detoxes. Patient was admitted that the psychiatric inpatient unit for evaluation and stabilization of mood symptoms inability to function, irritability, depressive symptoms, possible suicidal ideation with a plan to overdose on medications, patient needs further evaluation and stabilization, medication titration. patient is very familiar to this unit from 2 previous admissions, presented to have fair personal hygiene, good ADLs. patient seen at the treatment team meeting, patient said that he slept better, anxiety is under control, at the same time patient reported that he feels depressed, hopeless and helpless. Patient is willing to increase Wellbutrin to 400 mg. pt was educated about the risk, benefits, alternatives of medications. As per staff patient trying his best to attend all of the groups, visible in the unit but affect appears to be flat. Patient tolerates medications well, no side effects observed or reported, aims 0 , no EPS. Impression: As per history of bipolar disorder As per the history of generalized anxiety disorder and panic disorder As per history ADHD As per history of polysubstance abuse and dependence Medication Change: Yes (Wellbutrin will be increased to 400 mg) Medical Record Reviewed: Yes Consults ordered or reviewed: medical consult appreciated Mental Status Examination - Cognitive Function Orientation: Person, Place, Situation Memory: Intact Attention: Poor Concentration: Poor Association: WNL Fund of Knowledge: WNL - Mood Mood: Depressed, Anxious - Affect Affect: Constricted - Formal Thought Process Formal Thought Process: No Impairment - Suicidal Ideation Suicidal Ideation: No - Homicidal Ideation Homicidal Ideation: No Goal/Treatment Plan - Goal/Treatment Plan Need for Continued Stay: Remain at risks for inpatient hospitalization, Severe depression anxiety, Discharge may exacerbated symptoms, Severe functional impairment Progress Toward Problem(s) and Goals/Treatment Plan: milieu, structure, supportive therapy Seroquel 200 mg at the nighttime for mood stabilization Wellbutrin 200 mg twice a day for depression as well as ADHD Klonopin 2 mg 3 times a day will be resumed because patient has history of benzodiazepines withdrawals Lipitor 20 mg at the nighttime ill be continued Propranolol 10 mg twice a day will be continued medical consult SW evaluation family involvement Estimated Date of D/C: 06/23/17 (we'll monitor closely)
--- NOTE | 2017-06-20 08:43 | PCM.PYCHPN ---
Psychiatric Progress Note - Psychiatric Progress Note Patient seen today, length of contact: 25 minutes Patient Chief Complaint: "all right, up and down but getting better" Problems Identified/Issues Discussed: I reviewed assessment and recent notes. I met with patient in the dayroom. He is calm, oriented x3 and cooperative. Eye contact is good. Mood is reported as "all right, up and down but getting better". Anxiety is under control and patient slept well last night. Affect is full range and a little anxious but in very good control. Patient denies any new concerns or discomfort and he is tolerating his medications. Responses are relevant to questioning and thought process is coherent and clear. Denies AVH or SI. There were no major behavioral issues overnight. Diagnostic Results: As per history of bipolar disorder As per the history of generalized anxiety disorder and panic disorder As per history ADHD As per history of polysubstance abuse and dependence Medication Change: No ( ) Medical Record Reviewed: Yes Mental Status Examination - Cognitive Function Orientation: Person, Place, Situation Memory: Intact Attention: Poor Concentration: Poor Association: WNL Fund of Knowledge: WNL - Mood Mood: Depressed ("all right, up and down but getting better"), Anxious - Affect Affect: Broad, Other (a little anxious) - Speech Speech: Appropriate - Formal Thought Process Formal Thought Process: No Impairment - Suicidal Ideation Suicidal Ideation: No - Homicidal Ideation Homicidal Ideation: No Goal/Treatment Plan - Goal/Treatment Plan Need for Continued Stay: Remain at risks for inpatient hospitalization, Severe depression anxiety, Discharge may exacerbated symptoms, Severe functional impairment Progress Toward Problem(s) and Goals/Treatment Plan: * c/w current tx and plan * No new weekend labs * Vitals reviewed and noted below: Selected Entries 06/19/17 06/19/17 06/19/17 07:47 08:21 13:28 Temperature 97.2 F L Pulse Rate 75 75 75 Respiratory 20 Rate Blood Pressure 124/76 124/76 124/76 06/19/17 06/19/17 18:01 22:00 Temperature Pulse Rate 61 61 Respiratory Rate Blood Pressure 126/72 126/72 Estimated Date of D/C: 06/23/17 (we'll monitor closely)
--- NOTE | 2017-06-20 18:10 | CP.PCM.PN ---
Subjective - Date & Time of Evaluation Date of Evaluation: 06/20/17 Time of Evaluation: 09:20 - Subjective Subjective: Mark Chaudhari D.O. PGY-2, Internal Medicine [employer] Progress Note 21 year old male with a PMH of bipolar disorder, CELE, polysubstance abuse and hyperlipidemia currently in the psych unit for stabilization. Patient was seen and examined at bedside. Patient is doing well at this time and had absolutely no complaints. Patient is trying to get better and participating in his care. No acute overnight events. Objective - Vital Signs/Intake and Output Vital Signs (last 24 hours): Temp Pulse Resp BP Pulse Ox 98.4 F 57 L 20 123/74 99 06/20/17 06:32 06/20/17 16:51 06/20/17 06:32 06/20/17 16:51 06/17/17 18:28 - Medications Medications: Current Medications Acetaminophen (Tylenol 325mg Tab) 650 mg PO Q4H PRN PRN Reason: Pain, Mild (1-3) Al Hydrox/Mg Hydrox/Simethicone (Maalox Plus 30 Ml) 30 ml PO DAILY PRN PRN Reason: Upset Stomach Atorvastatin Calcium (Lipitor) 20 mg PO DIN [facility] Last Admin: 06/19/17 18:01 Dose: 20 mg Bupropion HCl (Wellbutrin) 200 mg PO BID [facility] Last Admin: 06/20/17 08:26 Dose: 200 mg Clonazepam (Klonopin) 2 mg PO 0800,1400,2000 [facility] PRN Reason: Protocol Last Admin: 06/20/17 14:26 Dose: 2 mg Hydroxyzine Pamoate (Vistaril) 50 mg PO Q6 PRN; Protocol PRN Reason: Anxiety Last Admin: 06/17/17 21:12 Dose: 50 mg Magnesium Hydroxide (Milk Of Magnesia) 30 ml PO DAILY PRN PRN Reason: Constipation Nicotine (Nicoderm Cq) 1 patch TD DAILY [facility] Last Admin: 06/20/17 08:26 Dose: 1 patch Propranolol HCl (Inderal) 10 mg PO TID [facility] Last Admin: 06/20/17 14:26 Dose: 10 mg Quetiapine Fumarate (Seroquel) 200 mg PO HS [facility] PRN Reason: Protocol Last Admin: 06/19/17 22:42 Dose: 200 mg Trazodone HCl (Desyrel) 50 mg PO HS [facility] Last Admin: 06/19/17 22:42 Dose: 50 mg - Constitutional Appears: Well, Non-toxic, No Acute Distress - Head Exam Head Exam: ATRAUMATIC, NORMOCEPHALIC - Eye Exam Eye Exam: EOMI, Normal appearance, PERRL - ENT Exam ENT Exam: Mucous Membranes Moist, Normal Exam - Neck Exam Neck Exam: Full ROM, Normal Inspection - Respiratory Exam Respiratory Exam: Clear to Ausculation Bilateral. absent: Rales, Rhonchi, Wheezes - Cardiovascular Exam Cardiovascular Exam: RRR, +S1, +S2. absent: Clicks, Gallop, Rubs, +S4, Murmur - GI/Abdominal Exam GI & Abdominal Exam: Soft, Normal Bowel Sounds. absent: Distended, Tenderness - Extremities Exam Extremities Exam: Full ROM, Normal Inspection - Neurological Exam Neurological Exam: Alert, Awake, CN II-XII Intact - Skin Skin Exam: Dry, Intact, Warm Assessment and Plan - Assessment and Plan (Free Text) Assessment: 21 year old male with a PMH of bipolar disorder, CELE, polysubstance abuse and hyperlipidemia currently in the psych unit for stabilization. Medical consultation was placed. Plan: 1. Hyperlipidemia Continue with Atorvastatin I had an extended conversation with the patient about how his dietary habits can factor into his continually elevated cholesterol and LDL levels, how saturated fats are mostly from animal products and meats, how things made with these things will contribute to his HLD like eggs and butter and thus baked goods, cookies, pastries, cakes, etc, educated about mono and poly unsaturated fats as well and how these are actually beneficial, be it from nut sources such as cashes, pistachios, peanuts, macadamias, etc. Patient verbalized both the understanding and agreement with above and states that he will make dietary changes. 2. Bipolar disorder, CELE, panic disorder, polysubstance abuse Patient under psychiatric care in psych unit Thank you for the pleasure of allowing us to participate in the care of this patient. Patient was seen and examined and case was discussed at length with attending physician.
--- NOTE | 2017-06-21 09:32 | PCM.PYCHPN ---
Psychiatric Progress Note - Psychiatric Progress Note Patient seen today, length of contact: 25 minutes Patient Chief Complaint: "all right, up and down but getting better" Problems Identified/Issues Discussed: I reviewed recent notes and met with patient at bedside. He is calm, oriented x3 and cooperative. Eye contact is good. Mood is still reported as "up and down ". Anxiety is presently under control though patient was a little emotional, tearful and anxious yesterday. Patient also had trouble falling asleep last night and requests to switch from trazodone to ambien. Affect is full range and a little anxious but in very good control. Patient denies any other new concerns or discomfort and he is tolerating his medications. Responses are relevant to questioning and thought process is coherent and clear. Denies AVH or SI. Staff notes indicate he has been brighter, visible and social with peers. There were no major behavioral issues over the weekend . Diagnostic Results: As per history of bipolar disorder As per the history of generalized anxiety disorder and panic disorder As per history ADHD As per history of polysubstance abuse and dependence Medication Change: Yes (switched trazodone to Ambien 10 mg HS prn) Medical Record Reviewed: Yes Mental Status Examination - Cognitive Function Orientation: Person, Place, Situation Memory: Intact Attention: Poor Concentration: Poor Association: WNL Fund of Knowledge: WNL - Mood Mood: Depressed ("all right, up and down but getting better"), Anxious - Affect Affect: Broad, Other (a little anxious) - Speech Speech: Appropriate - Formal Thought Process Formal Thought Process: No Impairment - Suicidal Ideation Suicidal Ideation: No - Homicidal Ideation Homicidal Ideation: No Goal/Treatment Plan - Goal/Treatment Plan Need for Continued Stay: Remain at risks for inpatient hospitalization, Severe depression anxiety, Discharge may exacerbated symptoms, Severe functional impairment Progress Toward Problem(s) and Goals/Treatment Plan: * c/w current tx and plan * Appreciate f/u by Dr. Flores on 06/20/17~no new recommendations * Switched trazodone to Ambien 10 mg HS prn for insomnia on 06/21/17 * No new weekend labs * Vitals reviewed and noted below: Selected Entries 06/20/17 06/20/17 06/20/17 06:32 08:27 16:51 Temperature 98.4 F Pulse Rate 70 70 57 L Respiratory 20 Rate Blood Pressure 112/66 112/66 123/74 Estimated Date of D/C: 06/23/17 (we'll monitor closely)
[2017-06-21 13:47] LABS: ALB/GLOB RATIO 1.9 (1.1-1.8); ALBUMIN 4.2 g/dL (3.0-4.8); ALT/SGPT 25 U/L (7-56); AST/SGOT 13 U/L (15-59); BLOOD UREA NITROGEN 17 mg/dL (7-21); CALCIUM 9.1 mg/dL (8.4-10.5); GFR AFRICAN-AMERICAN > 60; GFR NON-AFRICAN AMERICAN > 60
--- NOTE | 2017-06-21 13:57 | CP.PCM.PN ---
Subjective - Date & Time of Evaluation Date of Evaluation: 06/21/17 Time of Evaluation: 11:45 - Subjective Subjective: Mark Chaudhari D.O. PGY-2, Internal Medicine [employer] Progress Note 21 year old male with a PMH of bipolar disorder, CELE, polysubstance abuse and hyperlipidemia currently in the psych unit for stabilization. Patient was seen and examined at bedside. Patient states that he had some diarrhea today and he does not know why. Patient denies any new foods or other possible inciting events. Admits that it did not occur before he got to psych. Otherwise denies any other symptoms including any N/V, fevers, chills. Objective - Vital Signs/Intake and Output Vital Signs (last 24 hours): Temp Pulse Resp BP Pulse Ox 98.4 F 63 20 134/76 99 06/20/17 06:32 06/21/17 08:45 06/20/17 06:32 06/21/17 08:45 06/17/17 18:28 - Medications Medications: Current Medications Acetaminophen (Tylenol 325mg Tab) 650 mg PO Q4H PRN PRN Reason: Pain, Mild (1-3) Atorvastatin Calcium (Lipitor) 20 mg PO DIN [facility] Last Admin: 06/20/17 18:35 Dose: 20 mg Bupropion HCl (Wellbutrin) 200 mg PO BID [facility] Last Admin: 06/21/17 08:44 Dose: 200 mg Clonazepam (Klonopin) 2 mg PO 0800,1400,2000 [facility] PRN Reason: Protocol Last Admin: 06/21/17 08:45 Dose: 2 mg Hydroxyzine Pamoate (Vistaril) 50 mg PO Q6 PRN; Protocol PRN Reason: Anxiety Last Admin: 06/17/17 21:12 Dose: 50 mg Nicotine (Nicoderm Cq) 1 patch TD DAILY [facility] Last Admin: 06/21/17 08:44 Dose: 1 patch Pantoprazole Sodium (Protonix Ec Tab) 40 mg PO 0630 [facility] Propranolol HCl (Inderal) 10 mg PO TID [facility] Last Admin: 06/21/17 08:45 Dose: 10 mg Quetiapine Fumarate (Seroquel) 200 mg PO HS [facility] PRN Reason: Protocol Last Admin: 06/20/17 23:00 Dose: 200 mg Zolpidem Tartrate (Ambien) 10 mg PO HS PRN; Protocol PRN Reason: Insomnia - Head Exam Additional comments: Head Exam: ATRAUMATIC, NORMOCEPHALIC - Constitutional Appears: Well, Non-toxic, No Acute Distress - Eye Exam Eye Exam: EOMI, Normal appearance, PERRL - ENT Exam ENT Exam: Mucous Membranes Moist, Normal Exam - Neck Exam Neck Exam: Full ROM, Normal Inspection - Respiratory Exam Respiratory Exam: Clear to Ausculation Bilateral. absent: Rales, Rhonchi, Wheezes - Cardiovascular Exam Cardiovascular Exam: RRR, +S1, +S2. absent: Clicks, Gallop, Rubs, +S4, Murmur - GI/Abdominal Exam GI & Abdominal Exam: Soft, Normal Bowel Sounds. absent: Distended, Tenderness - Extremities Exam Extremities Exam: Full ROM, Normal Inspection - Neurological Exam Neurological Exam: Alert, Awake, CN II-XII Intact - Skin Skin Exam: Dry, Intact, Warm Assessment and Plan - Assessment and Plan (Free Text) Assessment: 21 year old male with a PMH of bipolar disorder, CELE, polysubstance abuse and hyperlipidemia currently in the psych unit for stabilization. Medical consultation was placed. Plan: 1. Diarrhea Unknown etiology Discontinued milk of mag and other pro-diarrheatics C. Diff and stool cx ordered CMP and CBC ordered Started protonix Will monitor 2. Hyperlipidemia Continue with Atorvastatin Dietary changes emphasized again 3. Tobacco abuse Counseled on cessation, patient possibly amenable Continue nicotine patch 4. Bipolar disorder, CELE, panic disorder, polysubstance abuse Patient under psychiatric care in psych unit Thank you for the pleasure of allowing us to participate in the care of this patient. Patient was seen and examined and case was discussed at length with attending physician.
[2017-06-21 14:01] LABS: HEMOGLOBIN 13.9 g/dL (14.0-18.0)
[2017-06-21 14:02] LABS: BASO # 0.04 K/mm3 (0.0-2.0); BASO % 0.7 % (0.0-3.0); EOS # 0.3 (0.0-0.7); EOS % 4.3 % (1.5-5.0); GRAN # 2.64 (1.4-6.5); GRAN % 44.1 % (50.0-68.0); LYMPH # 2.4 (1.2-3.4); LYMPH % 40.5 % (22.0-35.0); MEAN CELL VOLUME 86.9 fl (80.0-105.0); MEAN CORPUSCULAR HEMOGLOBIN 30.9 pg (25.0-35.0); MEAN CORPUSCULAR HGB CONC 35.5 g/dl (31.0-37.0); MEAN PLATELET VOLUME 10.8 fl (7.0-11.0); MONO # 0.6 (0.1-0.6); MONO % 10.4 % (1.0-6.0); PLATELET COUNT 195 10^3/uL (120.0-450.0); RED CELL DISTRIBUTION WIDTH 12.7 % (11.5-14.5)
[2017-06-21] MEDS: Lactobacillus Acidophilus 500 MU Cap PO SCH (17:17)
--- NOTE | 2017-06-21 23:36 | PN ---
DATE: 06/21/2017 SUBJECTIVE: The patient is seen today with the medical anthropologist *------*. Patient was seen ambulating in the hallway. Patient was seen in his room 515, bed 2. Patient complained of diarrhea. Denies suicidal or homicidal ideation, denies anxiety, depression today. Patient states that he is feeling better except for episodic diarrhea. PHYSICAL EXAMINATION VITAL SIGNS: Patient is afebrile. Heart rate 63-70, blood pressure 127/76, 134/76, respiration 18-20, O2 saturation was 96-99%. For further details of physical examination and other details of progress note, please refer to the progress note of the medical anthropologist from June 21. LABORATORY DATA: Patient was ordered repeat labs right away for evaluation of diarrhea. IMPRESSION AND PLAN: 1. Diarrhea. Etiology undetermined. 2. Mild normocytic anemia status post questionable erythrocytosis. 3. Hyperbilirubinemia. 4. Hypertriglyceridemia. 5. Hypercholesterolemia with elevated LDL. 6. Proteinuria. 7. Urine drug screen positive for cocaine, benzos and cannabinoids. 8. Bipolar disorder. 9. History of bipolar disorder, generalized anxiety disorder, polysubstance abuse, history of cocaine and marijuana abuse. 10. Hypercholesterolemia. 11. Hypertriglyceridemia. 12. Diarrhea, etiology undetermined. 13. Nicotine and polysubstance abuse and dependence. 14. Bipolar disorder, generalized anxiety disorder, panic disorder, polysubstance abuse. 15. Depression. 16. History of attention deficit disorder, history of inpatient psychiatric hospitalization. 17. Generalized anxiety disorder and panic disorder. PLAN: At this time, patient's all laxatives, stool softeners are stopped. Patient is started on Bacid 1 capsule twice a day. Patient has been ordered C. difficile. Patient has been started on proton pump inhibitor. Patient has been ordered Bacid 1 capsule twice a day. Patient is started on proton pump inhibitor, stool cultures has been ordered, C. difficile has been ordered. Patient's CBC, CMP, LFTs were reviewed, which shows potassium within normal limits, mild hyperbilirubinemia of 1.4. LFTs are normal. Patient has been started on proton pump inhibitor. Patient has been ordered stool C. difficile, stool cultures. CURRENT MEDICATIONS: Ambien 10 mg p.r.n., Bacid 1 capsule twice a day, Inderal 10 mg 3 times a day, Klonopin 2 mg 3 times a day, Lipitor 20 mg b.i.d., nicotine patch daily 7 mg, Protonix 40 mg daily, Seroquel 200 mg at bedtime, Tylenol 650 q. 4 p.r.n., Vistaril 50 mg q. 6 p.r.n., Wellbutrin SR 200 mg twice a day. Patient has been also ordered stool occult blood. At present, patient's further management will be dependent upon the patient's clinical condition, hemodynamic status and as per patient's response to therapeutic intervention as per patient's primary medical physician, Dr. Dung Sosa. Jorge Bahena MD
[2017-06-22] MEDS: Pantoprazole 40 mg EC Tab PO SCH (10:15)
[2017-06-22] MEDS: Lactobacillus Acidophilus 500 MU Cap PO SCH ×2 (10:15→17:55)
--- NOTE | 2017-06-22 20:20 | CP.PCM.PN ---
Subjective - Date & Time of Evaluation Date of Evaluation: 06/22/17 Time of Evaluation: 07:30 - Subjective Subjective: Pt s/e bedside. Patient has a pleasant affect and was cooperative. Pt states that his diarrhea has resolved. He is feeling stronger. Pt states that HLD runs in his family, but denies any family history of sudden cardiac deaths or family members dying at a young age of OR's. Patient is currently complying with his Statin. No further complaints at this time. At this point, we should sign off medical management. Patient should continue to take his statin. Patient should further continue his protonix. Will d/w Dr. Roy tomorrow. Objective - Vital Signs/Intake and Output Vital Signs (last 24 hours): Temp Pulse Resp BP Pulse Ox 97.5 F L 65 20 135/76 99 06/22/17 07:52 06/22/17 17:55 06/22/17 07:52 06/22/17 17:55 06/17/17 18:28 - Medications Medications: Current Medications Acetaminophen (Tylenol 325mg Tab) 650 mg PO Q4H PRN PRN Reason: Pain, Mild (1-3) Atorvastatin Calcium (Lipitor) 20 mg PO DIN [facility] Last Admin: 06/22/17 17:54 Dose: 20 mg Bupropion HCl (Wellbutrin) 200 mg PO BID [facility] Last Admin: 06/22/17 17:54 Dose: 200 mg Clonazepam (Klonopin) 2 mg PO 0800,1400,2000 [facility] PRN Reason: Protocol Last Admin: 06/22/17 16:00 Dose: 2 mg Hydroxyzine Pamoate (Vistaril) 50 mg PO Q6 PRN; Protocol PRN Reason: Anxiety Last Admin: 06/17/17 21:12 Dose: 50 mg Lactobacillus Acidophilus (Bacid Acidophilus) 1 cap PO BID [facility] Stop: 06/25/17 08:01 Last Admin: 06/22/17 17:55 Dose: 1 cap Nicotine (Nicoderm Cq) 1 patch TD DAILY [facility] Last Admin: 06/22/17 10:15 Dose: 1 patch Pantoprazole Sodium (Protonix Ec Tab) 40 mg PO 0630 [facility] Last Admin: 06/22/17 10:15 Dose: 40 mg Propranolol HCl (Inderal) 10 mg PO TID [facility] Last Admin: 08/14/17 17:55 Dose: 10 mg Quetiapine Fumarate (Seroquel) 200 mg PO HS [facility] PRN Reason: Protocol Last Admin: 06/21/17 22:19 Dose: 200 mg Zolpidem Tartrate (Ambien) 10 mg PO HS PRN; Protocol PRN Reason: Insomnia Last Admin: 06/21/17 22:19 Dose: 10 mg - Labs Labs: 06/21/17 13:50 06/21/17 13:30 - Additional Findings Additional findings: VS as above Constitutional: a&o x 4, nad Head and Neck: neck supple, no jvd, trachea midline, carotid midline, no cervical/head mass Eyes: nahed, nonicteric sclera, eom intact ENT: auditory acuity grossly intact, throat not congested, no nasal deformity Cardio: rrr, no m/r/g, no carotid bruit, nml s1, s2 Pulm: no accessory muscle use, equal nml breath sounds bilaterally, ctab Abd: s/nt/nd, nbs x 4 q, no palpable masses Derm: no rashes, no ulcers, no lesions Extr: no edema, no cyanosis, no calf tenderness, no lesions, no varicosities Neuro: cn II-XII grossly intact, ue and le 5/5 muscle strength bilaterally, no los ue, le bilaterally and core Assessment and Plan - Assessment and Plan (Free Text) Assessment: 21 year old male with a PMH of bipolar disorder, CELE, polysubstance abuse and hyperlipidemia currently in the psych unit for stabilization. Medical consultation was placed. Plan: 1. Diarrhea - REsolved Unknown etiology Discontinued milk of mag and other pro-diarrheatics C. Diff and stool cx ordered CMP and CBC ordered Started protonix Will monitor 2. Hyperlipidemia Continue with Atorvastatin Dietary changes emphasized again 3. Tobacco abuse Counseled on cessation, patient possibly amenable Continue nicotine patch 4. Bipolar disorder, CELE, panic disorder, polysubstance abuse Patient under psychiatric care in psych unit Thank you for the pleasure of allowing us to participate in the care of this patient.
[2017-06-23 07:51] LABS: % IRON SATURATION 48 % (20-55); IRON 166 ug/dL (45-180); TOTAL IRON BINDING CAPACITY 346 ug/dL (261-462)
[2017-06-23] MEDS: Pantoprazole 40 mg EC Tab PO SCH (08:43)
[2017-06-23] MEDS: Lactobacillus Acidophilus 500 MU Cap PO SCH ×2 (08:43→17:49)
--- NOTE | 2017-06-23 11:04 | PN ---
DATE: Covering for Dr. Shukla. Chart reviewed and case discussed with staff. The patient is a 21-year-old male with a reported history of ADHD and polysubstance use and dependence with two previous psychiatric admissions and at least 6 prior detoxification admissions. He reportedly was depressed with possible suicidal ideations and a plan to overdose on his medication. The patient was being monitored by his PMD, Dr. Sosa and was not seeing any psychiatrist. I had previously cared for this patient, this past 01/2017, at which time, he was also on the verge of overdosing after feeling suicidal and had felt bad about relapsing on oxycodone. It was felt that in the past, he was medication seeking. He was given the diagnosis then of attention deficit disorder suspected, bipolar I disorder suspected with chronic polysubstance use. The patient's mood and affect reportedly have improved. He has been compliant with his medication and is not exhibiting any psychotic ideation. He is being maintained on Ambien 10 mg at bedtime p.r.n.,Klonopin 2 mg t.i.d., Seroquel 200 mg at bedtime, and Wellbutrin 200 mg b.i.d. Ever Best MD/ PhD
[2017-06-23 12:06] LABS: BASO # 0.05 K/mm3 (0.0-2.0); BASO % 0.9 % (0.0-3.0); EOS # 0.3 (0.0-0.7); EOS % 4.9 % (1.5-5.0); GRAN # 2.34 (1.4-6.5); GRAN % 40.8 % (50.0-68.0); HEMOGLOBIN 14.5 g/dL (14.0-18.0); LYMPH # 2.6 (1.2-3.4); LYMPH % 45.9 % (22.0-35.0); MEAN CELL VOLUME 88.2 fl (80.0-105.0); MEAN CORPUSCULAR HGB CONC 35.2 g/dl (31.0-37.0); MEAN PLATELET VOLUME 10.8 fl (7.0-11.0); MONO # 0.4 (0.1-0.6); MONO % 7.5 % (1.0-6.0); PLATELET COUNT 180 10^3/uL (120.0-450.0); RBC 4.67 10^6/uL (3.5-6.1); RED CELL DISTRIBUTION WIDTH 12.8 % (11.5-14.5); WHITE BLOOD COUNT 5.7 10^3/ul (4.5-11.0)
[2017-06-23 12:10] LABS: FERRITIN 94.8 ng/mL
[2017-06-23 12:40] LABS: FOLATE 13.8 ng/mL
--- NOTE | 2017-06-23 16:21 | CP.PCM.PN ---
Subjective - Date & Time of Evaluation Date of Evaluation: 06/23/17 Time of Evaluation: 07:00 - Subjective Subjective: Pt s/e bedside. Patient states that his diarrhea has resolved. Patient is pleasant. No new complaints. Objective - Vital Signs/Intake and Output Vital Signs (last 24 hours): Temp Pulse Resp BP Pulse Ox 97.9 F 62 19 147/88 99 06/23/17 06:56 06/23/17 13:10 06/23/17 06:56 06/23/17 13:10 06/17/17 18:28 - Medications Medications: Current Medications Acetaminophen (Tylenol 325mg Tab) 650 mg PO Q4H PRN PRN Reason: Pain, Mild (1-3) Atorvastatin Calcium (Lipitor) 20 mg PO DIN [facility] Last Admin: 06/22/17 17:54 Dose: 20 mg Bupropion HCl (Wellbutrin) 200 mg PO BID [facility] Last Admin: 06/23/17 08:43 Dose: 200 mg Clonazepam (Klonopin) 2 mg PO 0800,1400,2000 [facility] PRN Reason: Protocol Last Admin: 06/23/17 13:08 Dose: 2 mg Hydroxyzine Pamoate (Vistaril) 50 mg PO Q6 PRN; Protocol PRN Reason: Anxiety Last Admin: 06/17/17 21:12 Dose: 50 mg Lactobacillus Acidophilus (Bacid Acidophilus) 1 cap PO BID [facility] Stop: 06/25/17 08:01 Last Admin: 06/23/17 08:43 Dose: 1 cap Nicotine (Nicoderm Cq) 1 patch TD DAILY [facility] Last Admin: 06/23/17 08:43 Dose: 1 patch Pantoprazole Sodium (Protonix Ec Tab) 40 mg PO 0630 [facility] Last Admin: 06/23/17 08:43 Dose: 40 mg Propranolol HCl (Inderal) 10 mg PO TID [facility] Last Admin: 06/23/17 13:10 Dose: 10 mg Quetiapine Fumarate (Seroquel) 200 mg PO HS [facility] PRN Reason: Protocol Last Admin: 06/22/17 23:01 Dose: 200 mg Zolpidem Tartrate (Ambien) 10 mg PO HS PRN; Protocol PRN Reason: Insomnia Last Admin: 06/22/17 23:02 Dose: 10 mg - Labs Labs: 06/23/17 09:19 06/21/17 13:30 - Additional Findings Additional findings: VS as above Constitutional: a&o x 4, nad Head and Neck: neck supple, no jvd, trachea midline, carotid midline, no cervical/head mass Eyes: nahed, nonicteric sclera, eom intact ENT: auditory acuity grossly intact, throat not congested, no nasal deformity Cardio: rrr, no m/r/g, no carotid bruit, nml s1, s2 Pulm: no accessory muscle use, equal nml breath sounds bilaterally, ctab Abd: s/nt/nd, nbs x 4 q, no palpable masses Derm: no rashes, no ulcers, no lesions Extr: no edema, no cyanosis, no calf tenderness, no lesions, no varicosities Neuro: cn II-XII grossly intact, ue and le 5/5 muscle strength bilaterally, no los ue, le bilaterally and core Assessment and Plan - Assessment and Plan (Free Text) Assessment: 21 year old male with a PMH of bipolar disorder, CELE, polysubstance abuse and hyperlipidemia currently in the psych unit for stabilization. Medical consultation was placed. Plan: 1. Diarrhea - Resolved. Likely 2/2 Viral Gastroenteritis VS Anxiety Unknown etiology Discontinued milk of mag and other pro-diarrheatics C. Diff and stool cx ordered - unnecessary CMP and CBC ordered Started protonix Will monitor 2. Hyperlipidemia Continue with Atorvastatin Dietary changes emphasized again 3. Tobacco abuse Counseled on cessation, patient possibly amenable Continue nicotine patch 4. Bipolar disorder, CELE, panic disorder, polysubstance abuse Patient under psychiatric care in psych unit
--- NOTE | 2017-06-24 04:32 | PN ---
The patient is a 21-year-old white male with reported history of ADHD and polysubstance abuse and dependence, who reports that he has been depressed and suicidal. The patient's mood and affect appear to be brighter today and he seems to be pleased that he was ought to be discharged today as originally planned. The patient had diarrhea earlier. The patient is being treated also for hyperlipidemia and he reports some mood lability still. Psychotropically, the patient is being maintained on Ambien at bedtime p.r.n. (10 mg), Inderal 10 mg t.i.d., Klonopin 2 mg t.i.d., Seroquel 200 mg at bedtime, and Vistaril 50 mg q.6 hours p.r.n. as well as Wellbutrin 200 mg b.i.d. Blood pressure 136/84 and pulse 60. Ever Best MD/ PhD /4:31:18
[2017-06-24] MEDS: Pantoprazole 40 mg EC Tab PO SCH (06:19)
[2017-06-24 06:31] VITALS: RESP 16
[2017-06-24] MEDS: Lactobacillus Acidophilus 500 MU Cap PO SCH ×2 (08:49→18:11)
--- NOTE | 2017-06-24 23:38 | CP.PCM.PN ---
Subjective - Date & Time of Evaluation Date of Evaluation: 06/24/17 Time of Evaluation: 07:35 - Subjective Subjective: Pt s/e bedside. Patient states that his diarrhea has resolved. Patient is pleasant. No new complaints. Objective - Vital Signs/Intake and Output Vital Signs (last 24 hours): Temp Pulse Resp BP Pulse Ox 97.4 F L 68 16 135/85 99 06/24/17 06:30 06/24/17 18:11 06/24/17 06:30 06/24/17 18:11 06/17/17 18:28 - Medications Medications: Current Medications Acetaminophen (Tylenol 325mg Tab) 650 mg PO Q4H PRN PRN Reason: Pain, Mild (1-3) Atorvastatin Calcium (Lipitor) 20 mg PO DIN [facility] Last Admin: 06/24/17 18:11 Dose: 20 mg Bupropion HCl (Wellbutrin) 200 mg PO BID [facility] Last Admin: 06/24/17 18:11 Dose: 200 mg Clonazepam (Klonopin) 2 mg PO 0800,1400,2000 [facility] PRN Reason: Protocol Last Admin: 06/24/17 20:50 Dose: 2 mg Hydroxyzine Pamoate (Vistaril) 50 mg PO Q6 PRN; Protocol PRN Reason: Anxiety Last Admin: 06/17/17 21:12 Dose: 50 mg Lactobacillus Acidophilus (Bacid Acidophilus) 1 cap PO BID [facility] Stop: 06/25/17 08:01 Last Admin: 06/24/17 18:11 Dose: 1 cap Nicotine (Nicoderm Cq) 1 patch TD DAILY [facility] Last Admin: 06/24/17 08:50 Dose: 1 patch Pantoprazole Sodium (Protonix Ec Tab) 40 mg PO 0630 [facility] Last Admin: 06/24/17 06:19 Dose: Not Given Propranolol HCl (Inderal) 10 mg PO TID [facility] Last Admin: 06/24/17 18:11 Dose: 10 mg Quetiapine Fumarate (Seroquel) 200 mg PO HS [facility] PRN Reason: Protocol Last Admin: 06/24/17 22:47 Dose: 200 mg Zolpidem Tartrate (Ambien) 10 mg PO HS PRN; Protocol PRN Reason: Insomnia Last Admin: 06/24/17 22:46 Dose: 10 mg - Labs Labs: 06/23/17 09:19 06/21/17 13:30 - Additional Findings Additional findings: VS as above Constitutional: a&o x 4, nad Head and Neck: neck supple, no jvd, trachea midline, carotid midline, no cervical/head mass Eyes: nahed, nonicteric sclera, eom intact ENT: auditory acuity grossly intact, throat not congested, no nasal deformity Cardio: rrr, no m/r/g, no carotid bruit, nml s1, s2 Pulm: no accessory muscle use, equal nml breath sounds bilaterally, ctab Abd: s/nt/nd, nbs x 4 q, no palpable masses Derm: no rashes, no ulcers, no lesions Extr: no edema, no cyanosis, no calf tenderness, no lesions, no varicosities Neuro: cn II-XII grossly intact, ue and le 5/5 muscle strength bilaterally, no los ue, le bilaterally and core Assessment and Plan - Assessment and Plan (Free Text) Assessment: 21 year old male with a PMH of bipolar disorder, CELE, polysubstance abuse and hyperlipidemia currently in the psych unit for stabilization. Medical consultation was placed. Plan: 1. Diarrhea - Resolved. Likely 2/2 Viral Gastroenteritis VS Anxiety Unknown etiology Discontinued milk of mag and other pro-diarrheatics C. Diff and stool cx ordered - unnecessary CMP and CBC ordered Started protonix Will monitor 2. Hyperlipidemia Continue with Atorvastatin Dietary changes emphasized again 3. Tobacco abuse Counseled on cessation, patient possibly amenable Continue nicotine patch 4. Bipolar disorder, CELE, panic disorder, polysubstance abuse Patient under psychiatric care in psych unit
[2017-06-25] MEDS: Pantoprazole 40 mg EC Tab PO SCH (06:52)
[2017-06-25 07:02] VITALS: BP 120/67; TEMP 97.3
--- NOTE | 2017-06-25 07:54 | PN ---
The patient is a 21-year-old white male who reports feelings of depression and some suicidality. He has a prior history of attention deficit disorder along with polysubstance abuse. The patient is problematic. He appears not to be depressed while speaking of such. Rather, he appears to be somewhat manipulative and medication seeking. His father has been concerned about the patient's mood. Father himself reported he has a history of substance usage. The patient is noted to be irritable and gets angry when his needs are not met. He does not appear to be psychotic, paranoid, suicidal or homicidal. A "disconnect" between his described symptomatology and observations thereof were also noted in his prior hospitalization this past january. When seen in July 2016, he was given a diagnosis of bipolar disorder along with polysubstance abuse and attention deficit disorder. The patient is considered to be engaging in secondary gain behavior including tension and control of a dysfunctional home situation, medication, attention. Ever Best MD/ PhD
[2017-06-25] MEDS: Lactobacillus Acidophilus 500 MU Cap PO SCH (09:08)
--- NOTE | 2017-06-25 11:35 | PCM.BM ---
Treatment Plan Problems - Problems identified on initial assessmt DEPRESSION Date Initiated: 06/17/17 Time Initiated: 20:00 Assessment reference: NA Status: Active ANXIETY Date Initiated: 06/17/17 Assessment reference: NA Status: Active MEDICATION NON ADHERENCE Date Initiated: 06/17/17 Time Initiated: 20:00 Assessment reference: NA Status: Active SUICIDAL THOUGHTS Date Initiated: 06/17/17 Time Initiated: 20:00 Assessment reference: NA Status: Active (Hx of suicidal attempts OD some medications..) Treatment assets and liabiliti Patient Assests: adapts well, cooperative, educated, motivated, self-reliant, ADL independent, physically healthy, good support system, negotiates basic needs , good past tx response, cognitively intact Patient Liabilities: financial problems, substance abuse - Diagnosis (1) Depression Status: Acute Interventions: 06/25/17 11:32 * Assess/adjust medications prior to discharge * will follow up at [facility] Sept. 7th * Educate on strategies to keep busy * Patient still depressed. He is not Homicidal nor Suicidal. We believe patient is Manipulative 06/25/17 11:33 - Milieu Protocol Maintain good personal hygiene: daily Encourage regular showers, daily Remind patient to perform daily oral care, daily Assist patient to perform ADL's Maintain personal safety: daily Educate patient to report safety concerns to staff, daily Monitor environment for contraband/sharps Medication safety: Monitor for expected outcome, potential side effects: daily, Assess barriers to learning: daily, Assess readiness for medication education: daily Milieu Narrative: * c/w current tx and plan * Appreciate f/u by Dr. Flores on 06/20/17~no new recommendations * Switched trazodone to Ambien 10 mg HS prn for insomnia on 06/21/17 * No new weekend labs * Vitals reviewed and noted below: Selected Entries 06/20/17 06/20/17 06/20/17 06:32 08:27 16:51 Temperature 98.4 F Pulse Rate 70 70 57 L Respiratory 20 Rate Blood Pressure 112/66 112/66 123/74 Family Contact Family involvement: Family/SO is involved Discharge/Continuing Care - Education Needs Education Needs: Patient Medication, Patient Diagnosis/Disease Process, Patient Coping Skills, Patient Health Practices/Safety - Discharge Discharge Criteria: Tolerates medication w/o severe side effects, Free of Suicidal thoughts, Normal sleep pattern - Treatment Team Participation Patient/Family/SO Statement: * c/w current tx and plan * Appreciate f/u by Dr. Flores on 06/20/17~no new recommendations * Switched trazodone to Ambien 10 mg HS prn for insomnia on 06/21/17 * No new weekend labs * Vitals reviewed and noted below: Selected Entries 06/20/17 06/20/17 06/20/17 06:32 08:27 16:51 Temperature 98.4 F Pulse Rate 70 70 57 L Respiratory 20 Rate Blood Pressure 112/66 112/66 123/74 Treatment Plan Review - Problem DEPRESSION Time Initiated: 20:00 MEDICATION NON ADHERENCE Time Initiated: 20:00 SUICIDAL THOUGHTS Time Initiated: 20:00
--- NOTE | 2017-06-25 13:06 | PCM.PYCHDC ---
Mental Status Examination - Mental Status Examination Orientation: Person, Place, Situation, Time Memory: Intact Mood: Depressed Affect: Broad Speech: Appropriate Attention: WNL Concentration: WNL Language: Word Retrieval Association: WNL Formal Thought Process: No Impairment Description of patient's judgement and insight: Patient has good insight and judgment into his condition. He was educated on coping strategies and states that he will follow up with the [facility]. Psychotic Thoughts and Behaviors: No Psychotic Thoughts or Behaviors Suicidal Ideation: No Current Homicidal Ideation?: No Plan: Patient is not suicidal nor homicidal. Discharge Summary - Discharge Note Reason for Hospitalization: Suicidal Ideation with plan. Psychiatric History (includes Medical, Family, Personal Hx): see HPI Consultations:: List each consultation separately and include: 1. Reason for request. 2. Findings. 3. Follow-up Summary of Hospital Course include:: 1. Description of specific treatment plan utilized for patients during their course of treatmen. 2. Summarize the time- course for resolution of acute symptoms and/or regressed behaviors. 3. Describe issues identified and worked on during hospitalization. 4. Describe medication utilized. 5. Describe medical problems identified and treated. 6. Reassessment of suicide risk Summary of Hospital Course: Patient is a 21 year old male who presented with complaints of suicidal ideation with a plan. The patient was planning to commit suicide through overdose. He told his Father, and then his father told him to go to the hospital. Patient was treated for Depression w/ suicidal ideation with Psychoeducation, suicide/homicide risk assessments and prevention, coping strategies, safety plan, relaxation techniques and medication management. Patient was to be discharged yesterday, but due to concerns from his father we decided to keep him for one more day and reassess his suicide risk. At this time patient is not suicidal nor homicidal. He still expresses that his is still slightly depressed, but he is much improved from admission and has no plan to kill himself or others. He is tolerating his Wellbutrin and he is ready and willing to manage his depression on an outpatient basis. He plans on doing work for grandmother/father and exercising to elevate his mood and keep himself busy. He was told to come back to the hospital if his condition worsens. He has an outpatient follow up appointment with [facility] on July 16. He will be discharged with following medications: Seroquel, Zolpidem, Propanolol , atorvastatin, pantaprazole, Klonopin, and Bupropian. - Diagnosis (1) Depression Current Visit: No Status: Acute - Final Diagnosis (DSM 5) Condition upon Discharge: FAIR Disposition: HOME/ ROUTINE Prescriptions/Medication Reconciliation: Atorvastatin [Lipitor] 20 mg PO DIN #14 tab buPROPion SR [Wellbutrin] 200 mg PO BID #14 tab clonazePAM [clonAZEPAM] 1.5 mg PO DAILY #21 tab Clonazepam [Klonopin] 2 mg PO [facility] #28 tablet Pantoprazole [Protonix EC Tab] 40 mg PO 0630 #14 ect Propranolol [Inderal] 10 mg PO TID #14 tab QUEtiapine [Seroquel] 200 mg PO HS #14 tab Zolpidem [Ambien] 10 mg PO HS PRN 1 Days PRN Reason: Insomnia - Smoking Cessation Smoking Cessation Medication prescribed: No - Antipsychotic Medications Pt discharged on 2 or more routine antipsychotic medications: No
[2017-06-25 13:42] VITALS: PULSE 70
--- NOTE | 2017-06-25 15:21 | CP.PCM.PN ---
Subjective - Date & Time of Evaluation Date of Evaluation: 06/25/17 Time of Evaluation: 07:15 - Subjective Subjective: PGY2 Progress note for Dr. Roy Patient see and examined at bedside. Patient's diarrhea has resolved and he denied any complaints of headache, dizziness, chest pain, palpitations, SOB, cough, abd pain, nausea, vomiting, bowel/bladder complaints, pain/swelling in his legs bilaterally. Patient is tolerating diet. Objective - Vital Signs/Intake and Output Vital Signs (last 24 hours): Temp Pulse Resp BP Pulse Ox 97.3 F L 70 16 120/67 99 06/25/17 07:01 06/25/17 13:36 06/25/17 07:01 06/25/17 13:36 06/17/17 18:28 - Medications Medications: Current Medications Acetaminophen (Tylenol 325mg Tab) 650 mg PO Q4H PRN PRN Reason: Pain, Mild (1-3) Last Admin: 06/25/17 03:18 Dose: 650 mg Atorvastatin Calcium (Lipitor) 20 mg PO DIN [facility] Last Admin: 06/24/17 18:11 Dose: 20 mg Bupropion HCl (Wellbutrin) 200 mg PO BID [facility] Last Admin: 06/25/17 09:06 Dose: 200 mg Clonazepam (Klonopin) 2 mg PO 0800,1400,2000 [facility] PRN Reason: Protocol Last Admin: 06/25/17 13:37 Dose: 2 mg Hydroxyzine Pamoate (Vistaril) 50 mg PO Q6 PRN; Protocol PRN Reason: Anxiety Last Admin: 06/17/17 21:12 Dose: 50 mg Nicotine (Nicoderm Cq) 1 patch TD DAILY [facility] Last Admin: 06/25/17 09:06 Dose: 1 patch Pantoprazole Sodium (Protonix Ec Tab) 40 mg PO 0630 [facility] Last Admin: 06/25/17 06:52 Dose: 40 mg Propranolol HCl (Inderal) 10 mg PO TID [facility] Last Admin: 06/25/17 13:36 Dose: 10 mg Quetiapine Fumarate (Seroquel) 200 mg PO HS [facility] PRN Reason: Protocol Last Admin: 06/24/17 22:47 Dose: 200 mg Zolpidem Tartrate (Ambien) 10 mg PO HS PRN; Protocol PRN Reason: Insomnia Last Admin: 06/24/17 22:46 Dose: 10 mg - Labs Labs: 06/23/17 09:19 06/21/17 13:30 - Additional Findings Additional findings: General: NAD Cardio : (+)s1/s2, (-) M/R/G Chest wall: (+) point tenderness on left sternal border adjacent to the 2nd intercostal space, no bruises, no erythema, no swelling Pulm: CTA BL, (-) Ronchi, wheezes, rales GI: abd soft, nontender, nondistended, (+) BS in all 4 quadrants, (-) rebound, rigidity Back: (-) CVA tenderness Skin: no rash, no bruises Assessment and Plan - Assessment and Plan (Free Text) Assessment: 21 M PMHx bipolar disorder, CELE, polysubstance abuse, HLD admitted in psych for stabilization. Medicine was consulted for diarrhea management. 21 year old male with PMH of bipolar disorder, ECLE, polysubstance abuse and hyperlipidemia currently in psych unit for stabilization. Will sign off at this time, reconsult if needed. Plan: Diarrhea - resolved - likely viral gastroenteritis vs anxiety - follow up with PMD if diarrhea returns Hyperlipidemia - continue home atorvastatin - dietary changed emphasized and patient agrees Tobacco use disorder - counseled at length on cessation of smoking tobacco - patient will be provided Rx for nicotine patch Bipolar disorder, CELE, panic disorder, polysubstance abuse - patient to follow up with outpatient psych Medicine will sign off at this time Patient advised to follow up with PMD Dr. Sosa within 7 days Thank you for the consult. Please reconsult if necessary Case discussed with Dr. Manuela Cook PGY2
== END 2017-06-25 15:30 | disposition home or self-care (01) | DRG 430 ==
LOC: ED 11:42 → ERH 13:29 → PSYC 20:11
PROVIDERS: ADMIT Psychiatry & Neurology Psychiatry; ATTEND Psychiatry & Neurology Psychiatry
DX: F31.9 Bipolar disorder, unspecified (principal); F14.10 Cocaine abuse, uncomplicated; F41.1 Generalized anxiety disorder; F90.9 Attention-deficit hyperactivity disorder, unspecified type; I10 Essential (primary) hypertension; A08.4 Viral intestinal infection, unspecified; F41.0 Panic disorder [episodic paroxysmal anxiety]; F12.10 Cannabis abuse, uncomplicated; K21.9 Gastro-esophageal reflux disease without esophagitis; F17.200 Nicotine dependence, unspecified, uncomplicated; D64.9 Anemia, unspecified; E78.1 Pure hyperglyceridemia; E78.2 Mixed hyperlipidemia

== ENCOUNTER 2017-08-04 16:21 | Emergency (ER) | payer MEDICAID ==
[2017-08-04 16:22] VITALS: BMI 25.7
[2017-08-04 16:35] VITALS: TEMP 98.2
[2017-08-04 17:28] LABS: BASO # 0.03 K/mm3 (0.0-2.0); BASO % 0.5 % (0.0-3.0); EOS # 0.3 (0.0-0.7); EOS % 4.9 % (1.5-5.0); GRAN # 2.56 (1.4-6.5); GRAN % 41.4 % (50.0-68.0); HEMATOCRIT 35.9 % (42.0-52.0); LYMPH # 2.7 (1.2-3.4); LYMPH % 43.8 % (22.0-35.0); MEAN CELL VOLUME 85.3 fl (80.0-105.0); MEAN CORPUSCULAR HEMOGLOBIN 30.9 pg (25.0-35.0); MEAN CORPUSCULAR HGB CONC 36.2 g/dl (31.0-37.0); MEAN PLATELET VOLUME 10.4 fl (7.0-11.0); MONO # 0.6 (0.1-0.6); MONO % 9.4 % (1.0-6.0); RED CELL DISTRIBUTION WIDTH 13.1 % (11.5-14.5); WHITE BLOOD COUNT 6.2 10^3/ul (4.5-11.0)
[2017-08-04 17:55] LABS: ALB/GLOB RATIO 1.5 (1.1-1.8); ALKALINE PHOSPHATASE 65 U/L (38-126); ALT/SGPT 35 U/L (7-56); AST/SGOT 30 U/L (17-59); BILIRUBIN,TOTAL 0.6 mg/dL (0.2-1.3); BLOOD UREA NITROGEN 13 mg/dL (7-21); CALCIUM 9.1 mg/dL (8.4-10.5); CARBON DIOXIDE 27 mmol/L (21-33); CHLORIDE 104 mmol/L (98-107); GFR AFRICAN-AMERICAN > 60; GLUCOSE,RANDOM 92 mg/dL (70-110); MAGNESIUM 1.5 mg/dL (1.7-2.2); POTASSIUM 4.2 mmol/L (3.6-5.0); SODIUM 140 mmol/L (132-148); TOTAL PROTEIN 6.2 g/dL (5.8-8.3)
[2017-08-04 18:12] LABS: TROPONIN I < 0.01 ng/mL
[2017-08-04 18:30] VITALS: BP 126/71; PULSE 65; RESP 18
--- NOTE | 2017-08-04 18:38 | ED PDOC ---
Arrival/HPI - General Chief Complaint: Shortness Of Breath Time Seen by Provider: 08/04/17 16:32 Historian: Patient - History of Present Illness Narrative History of Present Illness (Text): 08/04/17 18:39 21 yo M w/ pmh of bipolar, ADHD, anxiety, depression, high cholesterol, reports 10 day h/o intermittent sternal chest pain associated with SOB and dizziness, which has been occurring almost daily, reports having similar symptoms before, occuring at least 1-2 x a month, ongoing x 1 year. Patient states that he was just recently seen at a clinic on 07/29/17 for the similar symptoms, was advised to see a electrophysiology nurse practitioner, which he has not see at all regarding his symptoms. Otherwise: (-) radiation, (-) diaphoresis, (-) dyspnea, (-) pleuritic component , (-) ripping or tearing quality, (-) positional component, (-) exertional component, (-) syncope, (-) nausea, (-) vomiting, (-) calf swelling/pain, (-) neuro deficits. EVERARDO Thomas Past Medical History - Provider Review Nursing Documentation Reviewed: Yes - Infectious Disease Hx of Infectious Diseases: None - Tetanus Immunization Tetanus Immunization: Unknown - Past Medical History Past Medical History: No Previous - Cardiac Hx Cardiac Disorders: No Hx Hypertension: No - Pulmonary Hx Tuberculosis: No - Neurological HX Cerebrovascular Accident: No Hx Seizures: No - HEENT Hx HEENT Disorder: No - Renal Hx Renal Disorder: No - Endocrine/Metabolic Hx Endocrine Disorders: No - Hematological/Oncological Hx Cancer: No - Integumentary Hx Dermatological Disorder: No - Musculoskeletal/Rheumatological Hx Musculoskeletal Disorders: Yes - Gastrointestinal Hx Gastrointestinal Disorders: No Hx Gastroesophageal Reflux: Yes - Genitourinary/Gynecological Hx Genitourinary Disorders: No Hx Sexually Transmitted Diseases: No - Psychiatric Hx Psychophysiologic Disorder: Yes Hx Anxiety: Yes Hx Bipolar Disorder: Yes Hx Depression: Yes Hx Substance Use: Yes (marijuana) Other/Comment: suicidal attempt - Past Surgical History Past Surgical History: No Previous - Surgical History Hx Tonsillectomy: Yes Other/Comment: plate in jaw, adenoidectomy - Anesthesia Hx Anesthesia: Yes Hx Anesthesia Reactions: No Hx Malignant Hyperthermia: No - Suicidal Assessment Feels Threatened In Home Enviroment: No Family/Social History - Physician Review Nursing Documentation Reviewed: Yes Family/Social History: Other (heart disease - father) Smoking Status: Never Smoked Hx Alcohol Use: No Hx Substance Use: Yes (marijuana) Substance used: marijuana Hx Substance Use Treatment: No Allergies/Home Meds Allergies/Adverse Reactions: Allergies No Known Allergies Allergy (Verified 06/18/17 02:19) Home Medications: Home Meds Medication Instructions Recorded Confirmed buPROPion XL [Wellbutrin XL] 200 mg PO BID 08/04/17 08/04/17 clonazePAM [Klonopin] 2 mg PO BID 08/04/17 08/04/17 Review of Systems - Review of Systems Constitutional: Normal. absent: Fatigue, Weight Change, Fevers ENT: Normal. absent: Sore Throat, Rhinorrhea, Sinus Congestion Respiratory: Normal, SOB. absent: Cough, Sputum Cardiovascular: Normal, Chest Pain. absent: Palpitations, Syncope Musculoskeletal: Normal. absent: Arthralgias, Back Pain, Neck Pain Skin: Normal. absent: Rash, Pruritis, Skin Lesions Neurological: Normal, Dizziness. absent: Headache, Focal Weakness Physical Exam - Physical Exam Narrative Physical Exam (Text): 08/04/17 18:43 GENERAL APPEARANCE: Patient is awake, alert, oriented x 3, in no acute distress. SKIN: Warm, dry; (-) cyanosis. EYES: (-) conjunctival pallor. ENMT: Mucous membranes moist. NECK: (-) tenderness, (-) stiffness, (-) lymphadenopathy, (-) JVD. CHEST AND RESPIRATORY: (-) rash, (-) chest wall tenderness. Lungs: (-) rales , (-) rhonchi, (-) wheezes, (-) rub; breath sounds equal bilaterally. HEART AND CARDIOVASCULAR: (-) irregularity; (-) murmur, (-) gallop, (-) rub. ABDOMEN AND GI: Soft; (-) distention, (-) tenderness, (-) palpable pulsatile mass. EXTREMITIES: (-) deformity; (-) edema, (-) calf tenderness. (+) distal pulses. NEURO AND PSYCH: Mental status as above. Cranial nerves grossly intact; strength symmetric. Vital Signs Temp Pulse Resp BP Pulse Ox 08/04/17 18:22 65 18 126/71 99 08/04/17 16:55 17 08/04/17 16:34 98.2 F 68 18 128/75 99 08/04/17 16:27 98.1 F 63 16 124/76 97 Medical Decision Making ED Course and Treatment: 08/04/17 18:44 1 yo M w/ pmh of bipolar, ADHD, anxiety, depression, high cholesterol, reports 10 day h/o intermittent sternal chest pain associated with SOB and dizziness, which has been occurring almost daily, reports having similar symptoms before, occuring at least 1-2 x a month, ongoing x 1 year. Prior medical records reviewed : was seen in this emergency room on 06/17/17 at that time had a normal EKG, and had a normal x-ray of the ribs on 06/07/17. Plan: -- Labs -- EKG -- CXR -- Reassess and disposition EKG: NSR at 61 bpm, (-) acute ST changes, as read by JV. CXR : NAD, as read by PA Diagnostic results reviewed and are within normal limits. Diagnostic results d/ w the patient. On reevaluation, patient is laying comfortably in bed in no acute distress. He reports no chest pain, shortness of breath, dizziness or palpitations this time. Repeat exam, lungs clear to auscultation, cardiac regular rate and rhythm, repeat neuro exam shows no acute findings. Patient advised to follow up with primary care physician and with cardiology referral provided in 1-2 days without fail. Advised of the importance of obtaining a full cardiology workup in the near future and to not delay follow up. Return to the emergency room at any time for any new or worsening symptoms. Patient states he fully agrees with and understands discharge instructions. States that he agrees with the plan and disposition. Verbalized and repeated discharge instructions and plan. I have given the patient opportunity to ask any additional questions. - Lab Interpretations Lab Results: 08/04/17 17:11 08/04/17 17:11 Lab Results 08/04/17 17:11: Sodium 140, Potassium 4.2, Chloride 104, Carbon Dioxide 27, Anion Gap 13, BUN 13, Creatinine 1.0, Est GFR ( Amer) > 60, Est GFR (Non- Af Amer) > 60, Random Glucose 92, Calcium 9.1, Magnesium 1.5 L, Total Bilirubin 0.6, AST 30, ALT 35, Alkaline Phosphatase 65, Lactate Dehydrogenase 537, Total Creatine Kinase 141, Troponin I < 0.01, Total Protein 6.2, Albumin 3.8, Globulin 2.5, Albumin/Globulin Ratio 1.5 08/04/17 17:11: WBC 6.2, RBC 4.21, Hgb 13.0 L, Hct 35.9 L, MCV 85.3, MCH 30.9, MCHC 36.2, RDW 13.1, Plt Count 162, MPV 10.4, Gran % 41.4 L, Lymph % (Auto) 43.8 H, [place] % (Auto) 9.4 H, Eos % (Auto) 4.9, Baso % (Auto) 0.5, Gran # 2.56, Lymph # 2.7, [place] # 0.6, Eos # 0.3, Baso # 0.03 - RAD Interpretation Radiology Orders: 08/04/17 16:54 CHEST PORTABLE [RAD] Stat - PA / NIGHT PATROL INSPECTOR / Resident Statement / has reviewed & agrees with the documentation as recorded. Disposition/Present on Arrival - Present on Arrival Any Indicators Present on Arrival: No History of DVT/PE: No History of Uncontrolled Diabetes: No Urinary Catheter: No History of Decub. Ulcer: No History Surgical Site Infection Following: None - Disposition Have Diagnosis and Disposition been Completed?: Yes Diagnosis: Chest pain Disposition: HOME/ ROUTINE Disposition Time: 18:15 Patient Plan: Discharge Patient Problems: Current Active Problems Problem Status Onset Chest pain Acute Condition: STABLE Discharge Instructions (ExitCare): Chest Pain (ED) Print Language: GREEK Additional Instructions: Thank you for letting us take care of you today. You were treated for chest pain. The emergency medical care you received today was directed at your acute symptoms. Return to the Emergency Department if your symptoms worsen, do not improve, or if you have any other problems. Please contact your doctor in 2 days for re-evaluation and follow up / or call one of the physicians/clinics you have been referred to that are listed on the Patient Visit Information form that is included in your discharge packet. Bring any paperwork you were given at discharge with you along with any medications you are taking to your follow up visit. Our treatment cannot replace ongoing medical care by a primary care provider (PCP) outside of the emergency department. Thank you for allowing the [facility] [employer] team to be part of your care today. If you had an X-Ray : A Radiologist will review the ED reading if any change in treatment is needed we will contact you. Referrals: Jarocho Thomas MD [Primary Care Provider] - Follow up with primary Tati Escobedo MD [Staff Provider] - Follow up with primary Forms: [employer] (Arabic), WORK NOTE
--- NOTE | 2017-08-04 18:53 | RAD ---
HISTORY: Chest pain. Portable study 17:40 COMPARISON: 01/27/2017 FINDINGS: LUNGS: No active pulmonary disease. PLEURA: No significant pleural effusion identified, no pneumothorax apparent. CARDIOVASCULAR: No radiographic findings to suggest acute or significant cardiovascular disease. OSSEOUS STRUCTURES: No significant abnormalities. VISUALIZED UPPER ABDOMEN: Normal. OTHER FINDINGS: None. IMPRESSION: No active disease. No significant interval change compared to the prior examination(s).
[2017-08-04 19:13] VITALS: O2SAT 98
--- NOTE | 2017-08-05 11:41 | CARD ---
APPROVED REPORT EKG Measurement Heart [id number] <Conclusion> Normal sinus rhythm Normal ECG
== END 2017-08-04 19:12 | disposition home or self-care (01) ==
LOC: ED 16:21
DX: R07.9 Chest pain, unspecified (principal); E78.00 Pure hypercholesterolemia, unspecified; K21.9 Gastro-esophageal reflux disease without esophagitis

== ENCOUNTER 2017-12-30 16:35 | Inpatient (IN) | payer MEDICAID ==
[2017-12-30 16:36] VITALS: BMI 26.9
--- NOTE | 2017-12-30 17:31 | ED PDOC ---
Arrival/HPI - General Chief Complaint: Psychiatric Evaluation Time Seen by Provider: 12/30/17 17:07 Historian: Patient - History of Present Illness Narrative History of Present Illness (Text): 12/30/17 17:29 22yo male with psych history of bipolar who present with complaint of suicidal ideation. Patient states he feels overwhelmed and told his father last night that he was going to kill himself. States his father watched him all night and brought him to ED today. Patient states "I want to kill myself". states he wants to do that, by overdosing on his medications. He denies homicidal ideation and any somatic complaint. Past Medical History - Provider Review Nursing Documentation Reviewed: Yes - Infectious Disease Hx of Infectious Diseases: None - Tetanus Immunization Tetanus Immunization: Unknown - Past Medical History Past Medical History: No Previous - Cardiac Hx Cardiac Disorders: No Hx Hypertension: No - Pulmonary Hx Respiratory Disorders: No - Neurological Hx Neurological Disorder: No - HEENT Hx HEENT Disorder: No - Renal Hx Renal Disorder: No - Endocrine/Metabolic Hx Endocrine Disorders: No - Hematological/Oncological Hx Blood Disorders: No - Integumentary Hx Dermatological Disorder: No - Musculoskeletal/Rheumatological Hx Musculoskeletal Disorders: Yes Other/Comment: FX JAW - Gastrointestinal Hx Gastrointestinal Disorders: Yes Hx Gastroesophageal Reflux: Yes - Genitourinary/Gynecological Hx Genitourinary Disorders: No Hx Sexually Transmitted Diseases: No - Psychiatric Hx Psychophysiologic Disorder: Yes Hx Anxiety: Yes Hx Bipolar Disorder: Yes Hx Depression: Yes Hx Substance Use: Yes (marijuana) Other/Comment: suicidal attempt - Past Surgical History Past Surgical History: No Previous - Surgical History Hx Tonsillectomy: Yes Other/Comment: plate in jaw, adenoidectomy - Anesthesia Hx Anesthesia: Yes Hx Anesthesia Reactions: No Hx Malignant Hyperthermia: No - Suicidal Assessment Feels Threatened In Home Enviroment: No Family/Social History - Physician Review Nursing Documentation Reviewed: Yes Family/Social History: Unknown Family HX Smoking Status: Heavy Smoker > 10 Cigarettes Daily Hx Alcohol Use: No Hx Substance Use: Yes (marijuana) Substance used: OXYCODONE, XANAX Hx Substance Use Treatment: No Allergies/Home Meds Allergies/Adverse Reactions: Allergies No Known Allergies Allergy (Verified 12/30/17 16:43) Home Medications: Home Meds Medication Instructions Recorded Confirmed No Known Home Med 12/30/17 12/30/17 Review of Systems - Physician Review All systems were reviewed & negative as marked: Yes - Review of Systems Constitutional: Normal Eyes: Normal ENT: Normal Respiratory: Normal Cardiovascular: Normal Gastrointestinal: Normal Genitourinary Male: Normal Musculoskeletal: Normal Skin: Normal Neurological: Normal Endocrine: Normal Hemo/Lymphatic: Normal Psychiatric: Suicidal Ideation Physical Exam Vital Signs Reviewed: Yes Vital Signs Temp Pulse Resp BP Pulse Ox 12/30/17 16:47 99.4 F 122 H 16 143/82 95 Temperature: Afebrile Blood Pressure: Normal Pulse: Regular Respiratory Rate: Normal Appearance: Positive for: Well-Appearing, Non-Toxic, Comfortable Pain Distress: None Mental Status: Positive for: Alert and Oriented X 3 - Systems Exam Head: Present: Atraumatic, Normocephalic Pupils: Present: PERRL Extroacular Muscles: Present: EOMI Conjunctiva: Present: Normal Mouth: Present: Moist Mucous Membranes Neck: Present: Normal Range of Motion Respiratory/Chest: Present: Clear to Auscultation, Good Air Exchange. No: Respiratory Distress, Accessory Muscle Use Cardiovascular: Present: Regular Rate and Rhythm, Normal S1, S2. No: Murmurs Abdomen: Present: Normal Bowel Sounds. No: Tenderness, Distention, Peritoneal Signs Back: Present: Normal Inspection Upper Extremity: Present: Normal Inspection. No: Cyanosis, Edema Lower Extremity: Present: Normal Inspection. No: Edema Neurological: Present: GCS=15, CN II-XII Intact, Speech Normal Skin: Present: Warm, Dry, Normal Color. No: Rashes Psychiatric: Present: Alert, Oriented x 3, Normal Insight, Normal Concentration. No: Normal Affect (Flat affect) Medical Decision Making ED Course and Treatment: 12/30/17 20:13 Potassium was repleted. US was positive for opiates and THC. Pt was medically cleared for psych evaluation. He was seen in ED by REJI Ambriz. He DC with Dr. Fagan and patient was admitted for Major Depression. 12/30/17 20:30 CXR NAD - Lab Interpretations Lab Results: 12/30/17 17:32 12/30/17 17:32 Lab Results 12/30/17 18:51: Urine Opiates Screen Positive H, Urine Methadone Screen Negative , Ur Barbiturates Screen Negative, Ur Phencyclidine Scrn Negative, Ur Amphetamines Screen Negative, U Benzodiazepines Scrn Positive, U Oth Cocaine Metabols Negative, U Cannabinoids Screen Positive H 12/30/17 18:51: Urine Color Yellow, Urine Appearance Clear, Urine pH 6.0, Ur Specific [place] 1.020, Urine Protein Negative, Urine Glucose (UA) Negative, Urine Ketones Negative, Urine Blood Negative, Urine Nitrate Negative, Urine Bilirubin Negative, Urine Urobilinogen 0.2, Ur Leukocyte Esterase Negative 12/30/17 17:32: Alcohol, Quantitative < 10 12/30/17 17:32: Salicylates < 1 L, Acetaminophen < 10.0 L 12/30/17 17:32: Sodium 142, Potassium 3.4 L, Chloride 104, Carbon Dioxide 25, Anion Gap 16, BUN 8, Creatinine 0.7 L, Est GFR ( Amer) > 60, Est GFR (Non -Af Amer) > 60, Random Glucose 84, Calcium 9.4, Total Bilirubin 0.7, AST 21, ALT 46, Alkaline Phosphatase 58, Total Protein 6.7, Albumin 4.0, Globulin 2.8, Albumin/Globulin Ratio 1.4 12/30/17 17:32: WBC 7.9 D, RBC 4.64, Hgb 14.0, Hct 39.5 L, MCV 85.1, MCH 30.2, MCHC 35.4, RDW 12.7, Plt Count 219, MPV 10.2, Gran % 61.2, Lymph % (Auto) 29.4, [place] % (Auto) 6.7 H, Eos % (Auto) 2.3, Baso % (Auto) 0.4, Gran # 4.82, Lymph # ( Auto) 2.3, [place] # (Auto) 0.5, Eos # (Auto) 0.2, Baso # (Auto) 0.03 - Medication Orders Current Medication Orders: Discontinued Medications Potassium Chloride (K-Dur 20 Meq Er Tab) 20 meq PO STAT STA Stop: 12/30/17 20:15 Disposition/Present on Arrival - Present on Arrival Any Indicators Present on Arrival: No History of DVT/PE: No History of Uncontrolled Diabetes: No Urinary Catheter: No History of Decub. Ulcer: No History Surgical Site Infection Following: None - Disposition Have Diagnosis and Disposition been Completed?: Yes Diagnosis: Major depression, Suicidal ideation Disposition: HOSPITALIZED Disposition Time: 19:40 Patient Plan: Admission Patient Problems: Current Active Problems Problem Status Onset Major depression Acute Suicidal ideation Acute Condition: FAIR
[2017-12-30 17:59] LABS: ACETAMINOPHEN < 10.0 ug/ml (10.0-20.0); ALB/GLOB RATIO 1.4 (1.1-1.8); ALT/SGPT 46 U/L (7-56); AST/SGOT 21 U/L (17-59); BLOOD UREA NITROGEN 8 mg/dL (7-21); CALCIUM 9.4 mg/dL (8.4-10.5); GFR AFRICAN-AMERICAN > 60; GFR NON-AFRICAN AMERICAN > 60; SALICYLATE < 1 mg/dL (2.0-20.0)
[2017-12-30 18:17] LABS: BASO # 0.03 K/mm3 (0.0-2.0); BASO % 0.4 % (0.0-3.0); EOS # 0.2 (0.0-0.7); EOS % 2.3 % (1.5-5.0); GRAN # 4.82 (1.4-6.5); GRAN % 61.2 % (50.0-68.0); LYMPH # 2.3 (1.2-3.4); LYMPH % 29.4 % (22.0-35.0); MEAN CELL VOLUME 85.1 fl (80.0-105.0); MEAN CORPUSCULAR HEMOGLOBIN 30.2 pg (25.0-35.0); MEAN CORPUSCULAR HGB CONC 35.4 g/dl (31.0-37.0); MEAN PLATELET VOLUME 10.2 fl (7.0-11.0); MONO # 0.5 (0.1-0.6); MONO % 6.7 % (1.0-6.0); RBC 4.64 10^6/uL (3.5-6.1); RED CELL DISTRIBUTION WIDTH 12.7 % (11.5-14.5); WHITE BLOOD COUNT 7.9 10^3/ul (4.5-11.0)
[2017-12-30 19:06] LABS: URINE BILIRUBIN NEGATIVE (NEGATIVE); URINE BLOOD NEGATIVE (NEGATIVE); URINE GLUCOSE (UA) NEGATIVE (NEGATIVE); URINE LEUKOCYTE ESTERASE NEGATIVE Leu/uL (NEGATIVE); URINE PROTEIN NEGATIVE mg/dL (<30 mg/dL); URINE UROBILINOGEN 0.2 E.U./dL (<1 E.U./dL)
[2017-12-30 19:16] LABS: URINE APPEARANCE CLEAR (CLEAR); URINE COLOR YELLOW (YELLOW)
[2017-12-30 19:29] LABS: BARBITURATES, UR NEGATIVE (NEGATIVE); BENZODIAZEPINES, UR POSITIVE (NEGATIVE); OPIATES, UR POSITIVE (NEGATIVE); PHENCYCLIDINE, UR NEGATIVE (NEGATIVE)
[2017-12-30] MEDS ORDERED: Potassium Chloride 20 mEq ER Tab PO STA (20:14)
--- NOTE | 2017-12-30 20:46 | CARD ---
APPROVED REPORT EKG Measurement Heart [id number] <Conclusion> Normal sinus rhythm Normal ECG
[2017-12-31] MEDS ORDERED: Magnesium Hydroxide Susp 30 ml UD PO PRN (00:09)
--- NOTE | 2017-12-31 01:15 | PCM.BM ---
<Lara San - Last Filed: 12/31/17 01:11> Treatment Plan Problems - Problems identified on initial assessmt Ineffective Coping Date Initiated: 12/30/17 Time Initiated: 21:45 Assessment reference: NA Status: Active Hopelessness/helplessness Date Initiated: 12/30/17 Time Initiated: 21:45 Assessment reference: NA Status: Active Altered Sleep Patterns Date Initiated: 12/30/17 Time Initiated: 21:45 Assessment reference: NA Status: Active Treatment assets and liabiliti Patient Assests: adapts well, good support system, negotiates basic needs, good past tx response, cognitively intact, cooperative, educated, motivated, self- reliant, ADL independent, physically healthy Patient Liabilities: poor support system, substance abuse - Milieu Protocol Maintain good personal hygiene: daily Encourage regular showers, daily Remind patient to perform daily oral care, daily Assist patient to perform ADL's Conduct patient checks and document Observation sheet: Q15 minutes Maintain personal safety: every shift Educate patient to report safety concerns to staff, every shift Monitor environment for contraband/sharps Medication safety: Monitor for expected outcome, potential side effects: every shift, Assess barriers to learning: every shift, Assess readiness for medication education: every shift Discharge/Continuing Care - Education Needs Education Needs: Patient Medication, Patient Diagnosis/Disease Process, Patient Coping Skills, Patient Placement options, Patient Community resources, Patient Activities of Daily Living, Patient Pain, Patient Nutrition, Patient Health Practices/Safety, Patient Aftercare Safety Plan - Discharge Discharge Criteria: Tolerates medication w/o severe side effects, Free of Suicidal thoughts, Normal sleep pattern, Ability to care for self <Gracia Shukla - Last Filed: 12/31/17 18:03> - Diagnosis (1) Polysubstance abuse Status: Chronic Interventions: 12/31/17 18:03 Monitoring withdrawal symptoms Medical detoxification Pharmacotherapy for alcohol/benzos/opioid dependence Maintaining sobriety Relapse prevention Possible rehabilitation Motivational interviewing 12-step programs: AA meetings (2) Bipolar 1 disorder Status: Suspected Interventions: 12/31/17 18:04 Psychoeducation Psychopharmacology/adjustment of medications as needed/ monitoring possible side effects Monitor blood level of mood stabilizers Evaluate pt on daily basis Compliance with medications and follow up appointments Suicide and homicide risk assessment and prevention, coping strategies, safety plan Relapse prevention Reduction of symptoms Improve functional status Family involvement As outpatient: cognitive behavioral therapy <Matilde Sesay - Last Filed: 01/01/18 11:26> Family Contact Family involvement: Family/SO is involved <Pat Drew - Last Filed: 01/01/18 15:28>
--- NOTE | 2017-12-31 07:35 | RAD ---
HISTORY: admission COMPARISON: Frontal chest radiograph 08/04/2017 FINDINGS: LUNGS: No active pulmonary disease. PLEURA: No significant pleural effusion identified, no pneumothorax apparent. CARDIOVASCULAR: Normal. OSSEOUS STRUCTURES: No significant abnormalities. VISUALIZED UPPER ABDOMEN: Normal. OTHER FINDINGS: None. IMPRESSION: No interval acute cardiopulmonary disease appreciated.
[2017-12-31 08:39] LABS: BLOOD UREA NITROGEN 10 mg/dL (7-21); CALCIUM 9.6 mg/dL (8.4-10.5); GFR AFRICAN-AMERICAN > 60; GFR NON-AFRICAN AMERICAN > 60; GLUCOSE,FASTING 94 mg/dL (65-110); HDL CHOLESTEROL 35 mg/dL (29-60)
[2017-12-31 08:52] LABS: LDL CHOLESTEROL 130 mg/dL (0-129)
[2017-12-31] MEDS: buPROPion 150 mg/24 Hours XL Tab PO SCH (09:29)
--- NOTE | 2017-12-31 11:47 | CP.PCM.CON ---
<JovanVibhaMelvin - Last Filed: 12/31/17 11:29> History of Present Illness - History of Present Illness History of Present Illness: MEDICINE CONSULT NOTE Mr. Nathan is a 22 year old male with a past medical history significant for HLD (treated with diet), GERD, bipolar disorder, depression and polysubstance abuse (oxycodone and marijuana) who was admitted to the [facility] at [facility] for suicidal ideation. Patient reports that he has taken approximately 120mg of oxycodone daily for the past two months. He endorses that he buys this medication off of the street but has been prescribed in the past. His last dose was taken 24 hours ago. He reports that he "doesn't feel good" currently. He endorses that he was recently seen at an urgent care for flu-like symptoms, tested negative for the flu and sent home with recommendations for supportive care. He does note that this has improved significantly since he was seen at the urgent care but still endorses a dry cough. He denies any fever, chills, changes in his vision, dizziness, headache, sore throat, chest pain, palpitations, leg swelling, SOB, wheezing, sputum, hemoptysis, abdominal pain, N /V/D/C, urinary symptoms, skin changes, or any numbness/tingling/weakness of any extremity. PMH: HLD (treated with diet), GERD, bipolar disorder, depression and polysubstance abuse (oxycodone and marijuana) PSH: Tonsillectomy, and Jaw surgery s/p trauma Family History: Uncle-NE at age 80; Denies history of cancer Social History: Half pack per day smoker with five year pack smoking history, denies alcohol abuse, and polysubstance abuse (oxycodone and marijuana); Recently laid off Allergies: NKDA Home Medications: As per MAR Review of Systems - Review of Systems Review of Systems: As per HPI, otherwise negative Past Patient History - Infectious Disease Hx of Infectious Diseases: None - Tetanus Immunizations Tetanus Immunization: Unknown - Past Medical History & Family History Past Medical History?: Yes - Past Social History Smoking Status: Heavy Smoker > 10 Cigarettes Daily - CARDIAC Hx Cardiac Disorders: No Hx Hypertension: No - PULMONARY Hx Respiratory Disorders: No - NEUROLOGICAL Hx Neurological Disorder: No - HEENT Hx HEENT Problems: No - RENAL Hx Chronic Kidney Disease: No - ENDOCRINE/METABOLIC Hx Endocrine Disorders: No - HEMATOLOGICAL/ONCOLOGICAL Hx Blood Disorders: No - INTEGUMENTARY Hx Dermatological Problems: No - MUSCULOSKELETAL/RHEUMATOLOGICAL Hx Musculoskeletal Disorders: Yes Other/Comment: FX JAW with plate placement - GASTROINTESTINAL Hx Gastrointestinal Disorders: Yes Hx Gastroesophageal Reflux: Yes - GENITOURINARY/GYNECOLOGICAL Hx Genitourinary Disorders: No Hx Sexually Transmitted Disorders: No - PSYCHIATRIC Hx Psychophysiologic Disorder: Yes Hx Anxiety: Yes Hx Bipolar Disorder: Yes Hx Depression: Yes Hx Substance Use: Yes (marijuana, oxycodone) - SURGICAL HISTORY Hx Tonsillectomy: Yes Other/Comment: plate in jaw, adenoidectomy - ANESTHESIA Hx Anesthesia: Yes Hx Anesthesia Reactions: No Hx Malignant Hyperthermia: No Meds Allergies/Adverse Reactions: Allergies Allergy/AdvReac Type Severity Reaction Status Date / Time No Known Allergies Allergy Verified 12/31/17 00:03 - Medications Medications: Current Medications Acetaminophen (Tylenol 325mg Tab) 650 mg PO Q6H PRN PRN Reason: Pain, Mild (1-3) Al Hydrox/Mg Hydrox/Simethicone (Maalox Plus 30 Ml) 30 ml PO DAILY PRN PRN Reason: Upset Stomach Bupropion HCl (Wellbutrin Xl) 150 mg PO DAILY CHRISSY Last Admin: 12/31/17 09:29 Dose: 150 mg Clonazepam (Klonopin) 0.5 mg PO AMHS CHRISSY PRN Reason: Protocol Last Admin: 12/31/17 09:29 Dose: 0.5 mg Clonidine HCl (Catapres) 0.1 mg PO Q12 PRN PRN Reason: withdrawal Last Admin: 12/31/17 00:24 Dose: 0.1 mg Magnesium Hydroxide (Milk Of Magnesia) 30 ml PO DAILY PRN PRN Reason: Constipation Zaleplon (Sonata) 5 mg PO HS PRN PRN Reason: Insomnia Last Admin: 12/30/17 22:38 Dose: 5 mg Physical Exam - Constitutional Appears: Non-toxic, No Acute Distress - Head Exam Head Exam: ATRAUMATIC, NORMOCEPHALIC - Eye Exam Eye Exam: EOMI, Normal appearance, PERRL - ENT Exam ENT Exam: Mucous Membranes Moist, Normal Exam - Neck Exam Neck exam: Positive for: Full Rom, Normal Inspection. Negative for: Lymphadenopathy, Meningismus - Respiratory Exam Respiratory Exam: Clear to Auscultation Bilateral, NORMAL BREATHING PATTERN. absent: Accessory Muscle Use, Chest Wall Tenderness, Decreased Breath Sounds, Prolonged Expiratory Phase, Rales, Rhonchi, Wheezes, Respiratory Distress, Stridor - Cardiovascular Exam Cardiovascular Exam: REGULAR RHYTHM, RRR, +S1, +S2. absent: Bradycardia, Tachycardia, Clicks, Diastolic murmur, Gallop, Irregular Rhythm, JVD, Rubs, +S4 , Systolic Murmur - GI/Abdominal Exam GI & Abdominal Exam: Normal Bowel Sounds, Soft. absent: Tenderness - Extremities Exam Extremities exam: Positive for: full ROM, normal capillary refill, normal inspection, pedal pulses present. Negative for: calf tenderness, joint swelling , pedal edema, tenderness - Back Exam Back exam: NORMAL INSPECTION - Neurological Exam Neurological exam: Alert, CN II-XII Intact, Normal Gait, Oriented x3, Reflexes Normal - Skin Skin Exam: Dry, Intact, Normal Color, Warm Results - Vital Signs Recent Vital Signs: Last Vital Signs Temp 97.5 F L 12/31/17 06:52 Pulse 54 L 12/31/17 06:52 Resp 16 12/31/17 06:52 BP 112/69 12/31/17 06:52 Pulse Ox 97 12/30/17 21:45 - Labs Result Diagrams: 12/30/17 17:32 12/31/17 07:30 Labs: Laboratory Results - last 24 hr 12/31/17 12/31/17 07:30 07:30 Sodium 142 Potassium 3.9 Chloride 104 Carbon Dioxide 28 Anion Gap 14 BUN 10 Creatinine 0.8 Est GFR ( Amer) > 60 Est GFR (Non-Af Amer) > 60 Random Glucose 94 Fasting Glucose 94 Calcium 9.6 Phosphorus 4.5 Magnesium 1.9 Triglycerides 158 Cholesterol 191 LDL Cholesterol Direct 130 H HDL Cholesterol 35 TSH 3rd Generation 1.46 Assessment & Plan - Assessment and Plan (Free Text) Assessment: 22 year old male with a past medical history significant for HLD (treated with diet), GERD, bipolar disorder, depression and polysubstance abuse (oxycodone and marijuana) who was admitted to the [facility] at [facility] for suicidal ideation. Medicine team consulted for medical evaluation of patients chronic conditions. Plan: 1. Opiate Abuse -COWS score of 2, indicating no active withdrawal 2. History of HLD -Recommend changing diet from regular to heart healthy diet with low fat/ cholesterol 3. History of GERD -Protonix PO Patient seen, case discussed and medical records in detail with attending, Dr. Marsh. It is our recommendation that patient be monitored for signs/symptoms of opiate withdrawal and to have heart healthy with low fat/cholesterol diet. Medicine team will be signing off of this patient at this time. Please reconsult as necessary. - Date & Time Date: 12/31/17 Time: 11:52 <Tati Marsh - Last Filed: 12/31/17 15:15> Meds - Medications Medications: Current Medications Acetaminophen (Tylenol 325mg Tab) 650 mg PO Q6H PRN PRN Reason: Pain, Mild (1-3) Al Hydrox/Mg Hydrox/Simethicone (Maalox Plus 30 Ml) 30 ml PO DAILY PRN PRN Reason: Upset Stomach Bupropion HCl (Wellbutrin Xl) 150 mg PO DAILY CHRISSY Last Admin: 12/31/17 09:29 Dose: 150 mg Clonazepam (Klonopin) 0.5 mg PO AMHS CHRISSY PRN Reason: Protocol Last Admin: 12/31/17 09:29 Dose: 0.5 mg Clonidine HCl (Catapres) 0.1 mg PO Q12 PRN PRN Reason: withdrawal Last Admin: 12/31/17 00:24 Dose: 0.1 mg Gabapentin (Neurontin) 300 mg PO TID CHRISSY PRN Reason: Protocol Last Admin: 12/31/17 13:09 Dose: 300 mg Hydroxyzine Pamoate (Vistaril) 50 mg PO Q8 PRN; Protocol PRN Reason: Anxiety Loperamide HCl (Imodium) 2 mg PO BID PRN PRN Reason: Diarrhea Last Admin: 12/31/17 13:10 Dose: 2 mg Magnesium Hydroxide (Milk Of Magnesia) 30 ml PO DAILY PRN PRN Reason: Constipation Nicotine (Nicoderm Cq) 1 patch TD DAILY CHRISSY Last Admin: 12/31/17 13:08 Dose: 1 patch Pantoprazole Sodium (Protonix Ec Tab) 40 mg PO 0600 CHRISSY Quetiapine Fumarate (Seroquel) 100 mg PO HS CHRISSY PRN Reason: Protocol Tramadol HCl (Ultram) 50 mg PO TID CHRISSY Last Admin: 12/31/17 13:09 Dose: 50 mg Zaleplon (Sonata) 5 mg PO HS PRN PRN Reason: Insomnia Last Admin: 12/30/17 22:38 Dose: 5 mg Results - Vital Signs Recent Vital Signs: Last Vital Signs Temp 97.5 F L 12/31/17 06:52 Pulse 54 L 12/31/17 06:52 Resp 16 12/31/17 06:52 BP 112/69 12/31/17 06:52 Pulse Ox 97 12/30/17 21:45 - Labs Result Diagrams: 12/30/17 17:32 12/31/17 07:30 Labs: Laboratory Results - last 24 hr 12/31/17 12/31/17 07:30 07:30 Sodium 142 Potassium 3.9 Chloride 104 Carbon Dioxide 28 Anion Gap 14 BUN 10 Creatinine 0.8 Est GFR ( Amer) > 60 Est GFR (Non-Af Amer) > 60 Random Glucose 94 Fasting Glucose 94 Calcium 9.6 Phosphorus 4.5 Magnesium 1.9 Triglycerides 158 Cholesterol 191 LDL Cholesterol Direct 130 H HDL Cholesterol 35 TSH 3rd Generation 1.46 Attending/Attestation - Attestation I have personally seen and examined this patient.: Yes I have fully participated in the care of the patient.: Yes I have reviewed all pertinent clinical information: Yes Notes (Text): 12/31/17 15:11 Patient was seen and examined with medical aide. Agreed with assessment and plan. 22 yrs old male with H/O drug abuse and depression. Patient is stable at base line.There is no active medical issue at this time.We will sign off. Management plan was discussed in detail with patient. Education was provided.
--- NOTE | 2017-12-31 18:03 | PCM.PSYCH ---
Initial Psychiatric Evaluation - Initial Psychiatric Evaluation Type of Admission: Voluntary Legal Status: Capacity (pt has a capacity to sign consent for treatment) Chief Complaint (in patient's own words): "I was thinking to end up my life, I was searching the ways of suicide on Google..., I wanted to with no pain and peacefully, my father walked in my room and I told him what is going on and he brought me to the hospital" Patient's Reaction to Hospitalization: pt was admitted for evaluation of depressive symptoms and possible suicidal ideation. History of Present Illness and Precipitating Events: shortly patient is 22 year old male, self reported history of ADHD, polysubstance abuse and dependence, 3 previous psychiatric admissions, history of multiple detoxes. Patient was admitted that the psychiatric inpatient unit for evaluation and stabilization of mood symptoms inability to function, irritability, depressive symptoms, possible suicidal ideation with a plan to overdose on medications, patient needs further evaluation and stabilization, medication titration. patient is very familiar to this unit from 2 previous admissions, presented to have fair personal hygiene, good ADLs. pt said he is not feeling well and he is withdrawing from pain killers and benzos what he was buying on streets. 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 pt said for the past two months he was feeling progressively worse, pt said he was feeling hopeless and helpless, yesterday he woke up and "I was feeling depressed, I started to search suicidal methods on google, my father was concerned that I was staying in my room for so long, he came over and I told him what is happening". pt has hypomania in the past, pt said now he feels irritable and had racing thoughts which prevent him from sleeping at night. pt said that he was using oxycodone 130mg daily and xanax "I am not sure". pt reported to feel anxious and having panic attacks. Past Psych h/o: Patient reported being diagnosed with ADHD since age of 12 and he was on Concerta. one suicidal attempt about a year ago, pt OD on Alive. last d/c plan was to d/c pt to [facility], but pt said he was not accepted there?. Patient has h/o polysubstance abuse and dependence:including mushrooms, pain killers and Xanax alcohol, PCP, cocaine, Heroin IV, denied using for the past 4months. Pt was in six detoxes, 3 in [facility], 1 [facility], and one in [place]. Drug of choice were pain killers and xanax. Pt started to use drugs at age of 12-16. Pt smokes a pack a day, nicotine patch offered. Smoking Cessation Counseling: The patient was counseled as to the multiple risks to his/her health from continued use of tobacco products. 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 He/she states he/she understands these risks, and also understands the options and resources available to him/her to help him/her stop smoking. Nicotine replacement therapy, local hotlines, and local resources were discussed as viable options for helping him/her stop his/her tobacco use. The total time spent counseling the patient regarding tobacco cessation was 3 minutes Family h/o: strong family h/o substance use as well as bipolar. Medical issues: pt has metal plate on his jaw, h/o dyslipidemia, medical consult appreciated pt was on the following meds before: Seroquel Wellbutrin tramadol Tylenol 3 Klonopin Lipitor Propranolol benztropine 12/30/17 17:32 12/31/17 07:30 Lab Results 12/31/17 07:30: Sodium 142, Potassium 3.9, Chloride 104, Carbon Dioxide 28, Anion Gap 14, BUN 10, Creatinine 0.8, Est GFR ( Amer) > 60, Est GFR (Non- Af Amer) > 60, Random Glucose 94, Fasting Glucose 94, Calcium 9.6, Phosphorus 4.5, Magnesium 1.9, Triglycerides 158, Cholesterol 191, LDL Cholesterol Direct 130 H, HDL Cholesterol 35 12/31/17 07:30: RPR Nonreactive 12/31/17 07:30: TSH 3rd Generation 1.46 12/30/17 18:51: Urine Opiates Screen Positive H, Urine Methadone Screen Negative , Ur Barbiturates Screen Negative, Ur Phencyclidine Scrn Negative, Ur Amphetamines Screen Negative, U Benzodiazepines Scrn Positive, U Oth Cocaine Metabols Negative, U Cannabinoids Screen Positive H 12/30/17 18:51: Urine Color Yellow, Urine Appearance Clear, Urine pH 6.0, Ur Specific [place] 1.020, Urine Protein Negative, Urine Glucose (UA) Negative, Urine Ketones Negative, Urine Blood Negative, Urine Nitrate Negative, Urine Bilirubin Negative, Urine Urobilinogen 0.2, Ur Leukocyte Esterase Negative 12/30/17 17:32: Alcohol, Quantitative < 10 12/30/17 17:32: Salicylates < 1 L, Acetaminophen < 10.0 L 12/30/17 17:32: Sodium 142, Potassium 3.4 L, Chloride 104, Carbon Dioxide 25, Anion Gap 16, BUN 8, Creatinine 0.7 L, Est GFR ( Amer) > 60, Est GFR (Non -Af Amer) > 60, Random Glucose 84, Calcium 9.4, Total Bilirubin 0.7, AST 21, ALT 46, Alkaline Phosphatase 58, Total Protein 6.7, Albumin 4.0, Globulin 2.8, Albumin/Globulin Ratio 1.4 12/30/17 17:32: WBC 7.9 D, RBC 4.64, Hgb 14.0, Hct 39.5 L, MCV 85.1, MCH 30.2, MCHC 35.4, RDW 12.7, Plt Count 219, MPV 10.2, Gran % 61.2, Lymph % (Auto) 29.4, Mcintosh % (Auto) 6.7 H, Eos % (Auto) 2.3, Baso % (Auto) 0.4, Gran # 4.82, Lymph # ( Auto) 2.3, Mcintosh # (Auto) 0.5, Eos # (Auto) 0.2, Baso # (Auto) 0.03 Vital Signs Temp Pulse Pulse Resp BP Pulse Ox 12/31/17 15:00 83 127/71 12/31/17 06:52 97.5 F L 54 L 16 112/69 12/31/17 00:24 69 131/91 H 12/30/17 22:55 66 18 12/30/17 21:45 98.2 F 66 18 137/76 97 12/30/17 20:57 97 H 18 122/70 100 12/30/17 16:47 99.4 F 122 H 16 143/82 95 Current Medications: Active Medications Generic Name Dose Route Start Last Admin Trade Name Freq PRN Reason Stop Dose Admin Acetaminophen 650 mg 12/31/17 00:09 Tylenol 325mg Tab PO Q6H PRN Pain, Mild (1-3) Al Hydrox/Mg Hydrox/Simethicone 30 ml 12/31/17 00:09 Maalox Plus 30 Ml PO DAILY PRN Upset Stomach Bupropion HCl 150 mg 12/31/17 08:00 12/31/17 09:29 Wellbutrin Xl PO 150 mg DAILY CHRISSY Administration Clonazepam 0.5 mg 12/30/17 22:36 12/31/17 09:29 Klonopin PO 0.5 mg AMHS CHRISSY Administration Protocol Clonidine HCl 0.1 mg 12/30/17 22:49 12/31/17 00:24 Catapres PO 0.1 mg Q12 PRN Administration withdrawal Magnesium Hydroxide 30 ml 12/31/17 00:09 Milk Of Magnesia PO DAILY PRN Constipation Pantoprazole Sodium 40 mg 01/01/18 06:00 Protonix Ec Tab PO 0600 CHRISSY Zaleplon 5 mg 12/30/17 22:12 12/30/17 22:38 Sonata PO 5 mg HS PRN Administration Insomnia Past Psychiatric History - Past Psychiatric History Previous Treatment History: Inpatient Prior Professional Help: see HPI Prior Psychiatric Treatment: see HPI At what hospital: see HPI Duration: see HPI Nature of Treatment: see HPI Explanation of prior treatment: see HPI History of Abuse: denied History of ETOH/Drug Use: see HPI History of Family Illness: see HPI Pertinent Medical Hx (Current Medical&Sleep Prob, Allergies): Allergies Allergy/AdvReac Type Severity Reaction Status Date / Time No Known Allergies Allergy Verified 12/31/17 00:03 No Known Home Med 12/30/17 none Review of Systems - Review of Systems Systems not reviewed;Unavailable: Acuity of Condition - EENT Eyes: As Per HPI Ears: As Per HPI Nose/Mouth/Throat: As Per HPI - Cardiovascular Cardiovascular: As Per HPI - Respiratory Respiratory: As Per HPI - Gastrointestinal Gastrointestinal: As Per HPI - Genitourinary Genitourinary: As Per HPI - Reproductive: Male Reproductive:Male: As Per HPI - Musculoskeletal Musculoskeletal: As Par HPI - Integumentary Integumentary: As Per HPI - Neurological Neurological: As Per HPI - Psychiatric Psychiatric: As Per HPI - Endocrine Endocrine: As Per HPI - Hematologic/Lymphatic Hematologic: As Per HPI Mental Status Examination - Personal Presentation Personal Presentation: Looks stated age - Affect Affect: Flat - Motor Activity Motor Activity: Calm - Reliability in Providing Information Reliability in Providing Information: Other (pt has h/o providing inconsistend h /o, h/o lying) - Speech Speech: Organized - Mood Mood: Depressed, Anxious - Formal Thought Process Formal Thought Process: No Impairment - Obsessions/Compulsions Obsessions: None Compulsions: None - Cognitive Functions Orientation: Person Attention/Concentration: Easily distracted Abstract Thinking: [place] Estimate of Intelligence: Average Judgement: Intact, as evidence by: Insight regarding need for hospitalization - Risk Risk: Suicidal, Withdrawal, Diminished functioning - Strength & Assets Inventory Strength & Assets Inventory: Cooperative - Limitations Limitations: Other (h/o polysubstance dependence) DSM 5 DX - DSM 5 DSM 5 Diagnosis: as per history bipolar disorder As per history generalized anxiety disorder As per historypanic disorder As per history ADHD As per history of substance abuse and dependence r/o substance induced mood disorder - Recommended/Plan of Treatment Treatment Recommendations and Plan of Treatment: Milieu/structure/supportive therapy Medical consult appreciated, see medical team note for more detailed info SW consultation for discharge plan and social issues Med management seroquel 100mg po hs for mood stabilization prn meds for possible opioid withdrawals klonopin 0.5mg po bid for anxiety wellbutrin was started by 150mg po daily for depression neurontin 300mg po tid for mood stabilization and possible withdrawals Family involvement Follow up on labs Will monitor closely Pt was educated about risk/benefits and alternatives of medications, coping strategies (safety plan, suicide prevention), relapse prevention, importance of follow up with psychiatrist and therapist, stay away from drugs/alcohol/smoking Projected ELOS: 7days Prognosis: guarded Discharge Plan and Discharge Criteria: Pt will be not depressed or manic, will be more hopeful, will be not psychotic or anxious, will be not having thoughts of harming self or others, will be tolerating medications well, will not have major side effects, will be able to function, will not pose threat to self or others. - Smoking Cessation Smoking Cessation Initiated: Yes
[2018-01-01] MEDS: Multivitamin With Minerals Tab PO SCH (09:28)
[2018-01-01] MEDS: Pantoprazole 40 mg EC Tab PO SCH (09:29)
[2018-01-01] MEDS: buPROPion 150 mg/24 Hours XL Tab PO SCH (09:29)
--- NOTE | 2018-01-01 14:55 | PCM.PYCHPN ---
Psychiatric Progress Note - Psychiatric Progress Note Patient seen today, length of contact: 30min Patient Chief Complaint: "I slept better" Problems Identified/Issues Discussed: Suicide/ homicide prevention, past psychiatric h/o, current psychiatric symptoms , medical problems, risk/benefits and alternatives of medications, medications compliance, coping strategies, substance abuse h/o, relapse prevention, importance of follow up with psychiatrist and therapist, discharge plan. Medical Problems: HTN, dyslipidemia Diagnostic Results: 12/30/17 17:32 12/31/17 07:30 Lab Results 12/31/17 07:30: Sodium 142, Potassium 3.9, Chloride 104, Carbon Dioxide 28, Anion Gap 14, BUN 10, Creatinine 0.8, Est GFR ( Amer) > 60, Est GFR (Non- Af Amer) > 60, Random Glucose 94, Fasting Glucose 94, Calcium 9.6, Phosphorus 4.5, Magnesium 1.9, Triglycerides 158, Cholesterol 191, LDL Cholesterol Direct 130 H, HDL Cholesterol 35 12/31/17 07:30: RPR Nonreactive 12/31/17 07:30: TSH 3rd Generation 1.46 12/30/17 18:51: Urine Opiates Screen Positive H, Urine Methadone Screen Negative , Ur Barbiturates Screen Negative, Ur Phencyclidine Scrn Negative, Ur Amphetamines Screen Negative, U Benzodiazepines Scrn Positive, U Oth Cocaine Metabols Negative, U Cannabinoids Screen Positive H 12/30/17 18:51: Urine Color Yellow, Urine Appearance Clear, Urine pH 6.0, Ur Specific [place] 1.020, Urine Protein Negative, Urine Glucose (UA) Negative, Urine Ketones Negative, Urine Blood Negative, Urine Nitrate Negative, Urine Bilirubin Negative, Urine Urobilinogen 0.2, Ur Leukocyte Esterase Negative 12/30/17 17:32: Alcohol, Quantitative < 10 12/30/17 17:32: Salicylates < 1 L, Acetaminophen < 10.0 L 12/30/17 17:32: Sodium 142, Potassium 3.4 L, Chloride 104, Carbon Dioxide 25, Anion Gap 16, BUN 8, Creatinine 0.7 L, Est GFR ( Amer) > 60, Est GFR (Non -Af Amer) > 60, Random Glucose 84, Calcium 9.4, Total Bilirubin 0.7, AST 21, ALT 46, Alkaline Phosphatase 58, Total Protein 6.7, Albumin 4.0, Globulin 2.8, Albumin/Globulin Ratio 1.4 12/30/17 17:32: WBC 7.9 D, RBC 4.64, Hgb 14.0, Hct 39.5 L, MCV 85.1, MCH 30.2, MCHC 35.4, RDW 12.7, Plt Count 219, MPV 10.2, Gran % 61.2, Lymph % (Auto) 29.4, [place] % (Auto) 6.7 H, Eos % (Auto) 2.3, Baso % (Auto) 0.4, Gran # 4.82, Lymph # ( Auto) 2.3, [place] # (Auto) 0.5, Eos # (Auto) 0.2, Baso # (Auto) 0.03 Vital Signs Temp Pulse Pulse Resp BP Pulse Ox 01/01/18 07:39 98.0 F 53 L 20 103/59 L 12/31/17 15:00 83 127/71 12/31/17 06:52 97.5 F L 54 L 16 112/69 12/31/17 00:24 69 131/91 H 12/30/17 22:55 66 18 12/30/17 21:45 98.2 F 66 18 137/76 97 12/30/17 20:57 97 H 18 122/70 100 12/30/17 16:47 99.4 F 122 H 16 143/82 95 DSM 5 Symptoms Update: shortly patient is 22 year old male, self reported history of ADHD, polysubstance abuse and dependence, 3 previous psychiatric admissions, history of multiple detoxes. Patient was admitted that the psychiatric inpatient unit for evaluation and stabilization of mood symptoms inability to function, irritability, depressive symptoms, possible suicidal ideation with a plan to overdose on medications, patient needs further evaluation and stabilization, medication titration. pt was seen at the treatment team meeting, pt said he slept better. pt fixated on benzodiazepines, was asking for Klonopin to be prescribed. Patient has significant history of polysubstance abuse and dependence, when necessary of Klonopin 0.5 mg twice a day will be continued as of now with the plan to discontinue that later on. Patient reported that he feels hopeless, helpless, guilty. Patient denied any thoughts of killing himself or others. Patient tolerated medications well, no side effects, aims 0, no EPS. Impression: Bipolar disorder as per history Polysubstance abuse and dependence as per history Self-reported history of ADHD. Medication Change: Yes (Seroquel increase stabilization) Medical Record Reviewed: Yes Consults ordered or reviewed: medical consult appreciated Mental Status Examination - Cognitive Function Orientation: Person Memory: Intact Attention: Poor Concentration: Poor Association: WNL Fund of Knowledge: WNL - Mood Mood: Depressed, Anxious - Affect Affect: Flat - Formal Thought Process Formal Thought Process: No Impairment - Suicidal Ideation Suicidal Ideation: No - Homicidal Ideation Homicidal Ideation: No Goal/Treatment Plan - Goal/Treatment Plan Need for Continued Stay: Remain at risks for inpatient hospitalization, Severe depression anxiety, Discharge may exacerbated symptoms, Severe functional impairment Progress Toward Problem(s) and Goals/Treatment Plan: Milieu/structure/supportive therapy Medical consult appreciated, see medical team note for more detailed info SW consultation for discharge plan and social issues Med management seroquel 100mg po amhs for mood stabilization prn meds for possible opioid withdrawals klonopin 0.5mg po bid for anxiety wellbutrin 150mg po daily for depression neurontin 300mg po tid for mood stabilization and possible withdrawals Family involvement Follow up on labs Will monitor closely Pt was educated about risk/benefits and alternatives of medications, coping strategies (safety plan, suicide prevention), relapse prevention, importance of follow up with psychiatrist and therapist, stay away from drugs/alcohol/smoking Estimated Date of D/C: 01/06/18 (we will monitor closely) - Smoking Cessation Smoking Cessation Initiated: Yes
[2018-01-01] MEDS ORDERED: Albuterol-Ipratrop 3 mg / 0.5 (3 ml) UD IH STA (17:14)
[2018-01-01] MEDS ORDERED: Benzocaine/Menthol (Cepacol) Lozenge MT PRN (17:14)
[2018-01-01] MEDS ORDERED: guaiFENesin DM 100 mg-10 mg/5 ml UD PO PRN (17:14)
[2018-01-02] MEDS: Multivitamin With Minerals Tab PO SCH (09:24)
[2018-01-02] MEDS: buPROPion 150 mg/24 Hours XL Tab PO SCH (09:24)
--- NOTE | 2018-01-02 10:00 | PCM.PYCHPN ---
Psychiatric Progress Note - Psychiatric Progress Note Patient seen today, length of contact: 25 min Patient Chief Complaint: "still anxious" Problems Identified/Issues Discussed: I reviewed assessment and recent notes. Patient was interviewed at bedside. He is oriented x3 and fairly cooperative. He reports that he is fine but indicates that he still has anxiety and restless sleep. He denies hopelessness or SI/HI. Staff notes indicate that patient is visible on the unit and socializes appropriately with patients and staff. Has complained to staff about periods of anxiety. Compliant with his medications and has been in good behavioral control. Diagnostic Results: Bipolar disorder as per history Polysubstance abuse and dependence as per history Self-reported history of ADHD. Medication Change: Yes ( Sonata increased to 10 mg HS prn) Medical Record Reviewed: Yes Mental Status Examination - Cognitive Function Orientation: Person Memory: Intact Attention: WNL Concentration: Poor Association: WNL Fund of Knowledge: WNL - Mood Mood: Depressed, Anxious - Affect Affect: Flat - Speech Speech: Appropriate - Formal Thought Process Formal Thought Process: No Impairment - Suicidal Ideation Suicidal Ideation: No - Homicidal Ideation Homicidal Ideation: No Goal/Treatment Plan - Goal/Treatment Plan Need for Continued Stay: Remain at risks for inpatient hospitalization, Severe depression anxiety, Discharge may exacerbated symptoms, Severe functional impairment Progress Toward Problem(s) and Goals/Treatment Plan: c/w current tx and plan Sonata increased to 10 mg HS prn: insomnia on 01/02/18 No new weekend labs thus far Vitals reviewed and noted below: Selected Entries 01/01/18 01/01/18 07:39 15:00 Temperature 98.0 F Pulse Rate 53 L 101 H Respiratory 20 Rate Blood Pressure 103/59 L 124/79 Estimated Date of D/C: 01/06/18 (we will monitor closely)
[2018-01-03] MEDS: Multivitamin With Minerals Tab PO SCH (08:43)
[2018-01-03] MEDS: buPROPion 150 mg/24 Hours XL Tab PO SCH (08:43)
[2018-01-03] MEDS: Pantoprazole 40 mg EC Tab PO SCH ×2 (08:44→09:14)
--- NOTE | 2018-01-03 09:47 | PCM.PYCHPN ---
Psychiatric Progress Note - Psychiatric Progress Note Patient seen today, length of contact: 25 min Patient Chief Complaint: "still anxious" Problems Identified/Issues Discussed: I reviewed recent notes and patient was interviewed at bedside. He is oriented x3 and fairly cooperative. He reports that he is "all right" but indicates that he still has anxiety. Patient appears calm and in control during my visit. Sleep was improved last night with the increase of Trazodone to 125 mg HS. He denies hopelessness or SI/HI. Tolerating medications and denies new discomfort or pain. Staff notes indicate that patient is visible on the unit and socializes appropriately with patients and staff. Compliant with his medications and has been in good behavioral control. Diagnostic Results: Bipolar disorder as per history Polysubstance abuse and dependence as per history Self-reported history of ADHD. Medication Change: Yes ( Sonata increased to 10 mg HS prn) Medical Record Reviewed: Yes Mental Status Examination - Cognitive Function Orientation: Person, Place Memory: Intact Attention: WNL Concentration: Poor Association: WNL Fund of Knowledge: WNL - Mood Mood: Depressed ("all right"), Anxious - Affect Affect: Other (Neutral) - Speech Speech: Appropriate - Formal Thought Process Formal Thought Process: No Impairment - Suicidal Ideation Suicidal Ideation: No - Homicidal Ideation Homicidal Ideation: No Goal/Treatment Plan - Goal/Treatment Plan Need for Continued Stay: Remain at risks for inpatient hospitalization, Severe depression anxiety, Discharge may exacerbated symptoms, Severe functional impairment Progress Toward Problem(s) and Goals/Treatment Plan: c/w current tx and plan Sonata increased to 10 mg HS prn: insomnia on 01/02/18 No new weekend labs Vitals reviewed and noted below: 01/03/18 07:45 Temperature 97.7 F Pulse Rate 51 L Respiratory 20 Rate Blood Pressure 88/51 L Estimated Date of D/C: 01/06/18 (we will monitor closely)
[2018-01-04] MEDS: Pantoprazole 40 mg EC Tab PO SCH (07:00)
[2018-01-04] MEDS: Multivitamin With Minerals Tab PO SCH (09:37)
[2018-01-04] MEDS: buPROPion 150 mg/24 Hours XL Tab PO SCH (09:38)
--- NOTE | 2018-01-04 17:17 | PCM.PYCHPN ---
Psychiatric Progress Note - Psychiatric Progress Note Patient seen today, length of contact: 30min Patient Chief Complaint: "you have to give me klonopin, this is the only medication which could help" Problems Identified/Issues Discussed: Suicide/ homicide prevention, past psychiatric h/o, current psychiatric symptoms , medical problems, risk/benefits and alternatives of medications, medications compliance, coping strategies, substance abuse h/o, relapse prevention, importance of follow up with psychiatrist and therapist, discharge plan. Medical Problems: HTN, dyslipidemia Diagnostic Results: 12/30/17 17:32 12/31/17 07:30 Lab Results 12/31/17 07:30: Sodium 142, Potassium 3.9, Chloride 104, Carbon Dioxide 28, Anion Gap 14, BUN 10, Creatinine 0.8, Est GFR ( Amer) > 60, Est GFR (Non- Af Amer) > 60, Random Glucose 94, Fasting Glucose 94, Calcium 9.6, Phosphorus 4.5, Magnesium 1.9, Triglycerides 158, Cholesterol 191, LDL Cholesterol Direct 130 H, HDL Cholesterol 35 12/31/17 07:30: RPR Nonreactive 12/31/17 07:30: TSH 3rd Generation 1.46 12/30/17 18:51: Urine Opiates Screen Positive H, Urine Methadone Screen Negative , Ur Barbiturates Screen Negative, Ur Phencyclidine Scrn Negative, Ur Amphetamines Screen Negative, U Benzodiazepines Scrn Positive, U Oth Cocaine Metabols Negative, U Cannabinoids Screen Positive H 12/30/17 18:51: Urine Color Yellow, Urine Appearance Clear, Urine pH 6.0, Ur Specific [place] 1.020, Urine Protein Negative, Urine Glucose (UA) Negative, Urine Ketones Negative, Urine Blood Negative, Urine Nitrate Negative, Urine Bilirubin Negative, Urine Urobilinogen 0.2, Ur Leukocyte Esterase Negative 12/30/17 17:32: Alcohol, Quantitative < 10 12/30/17 17:32: Salicylates < 1 L, Acetaminophen < 10.0 L 12/30/17 17:32: Sodium 142, Potassium 3.4 L, Chloride 104, Carbon Dioxide 25, Anion Gap 16, BUN 8, Creatinine 0.7 L, Est GFR ( Amer) > 60, Est GFR (Non -Af Amer) > 60, Random Glucose 84, Calcium 9.4, Total Bilirubin 0.7, AST 21, ALT 46, Alkaline Phosphatase 58, Total Protein 6.7, Albumin 4.0, Globulin 2.8, Albumin/Globulin Ratio 1.4 12/30/17 17:32: WBC 7.9 D, RBC 4.64, Hgb 14.0, Hct 39.5 L, MCV 85.1, MCH 30.2, MCHC 35.4, RDW 12.7, Plt Count 219, MPV 10.2, Gran % 61.2, Lymph % (Auto) 29.4, [place] % (Auto) 6.7 H, Eos % (Auto) 2.3, Baso % (Auto) 0.4, Gran # 4.82, Lymph # ( Auto) 2.3, [place] # (Auto) 0.5, Eos # (Auto) 0.2, Baso # (Auto) 0.03 Vital Signs Temp Pulse Pulse Resp BP Pulse Ox 01/01/18 07:39 98.0 F 53 L 20 103/59 L 12/31/17 15:00 83 127/71 12/31/17 06:52 97.5 F L 54 L 16 112/69 12/31/17 00:24 69 131/91 H 12/30/17 22:55 66 18 12/30/17 21:45 98.2 F 66 18 137/76 97 12/30/17 20:57 97 H 18 122/70 100 12/30/17 16:47 99.4 F 122 H 16 143/82 95 Temp Pulse Resp BP Pulse Ox 97.5 F L 72 20 135/70 97 01/04/18 07:31 01/04/18 16:00 01/04/18 07:31 01/04/18 16:00 12/30/17 21:45 DSM 5 Symptoms Update: shortly patient is 22 year old male, self reported history of ADHD, polysubstance abuse and dependence, 3 previous psychiatric admissions, history of multiple detoxes. Patient was admitted that the psychiatric inpatient unit for evaluation and stabilization of mood symptoms inability to function, irritability, depressive symptoms, possible suicidal ideation with a plan to overdose on medications, patient needs further evaluation and stabilization, medication titration. pt was seen at the treatment team meeting room, pt said he wants klonopin to be increased, "I feel very anxious", pt was advised that the plan is to wean him off from benzodiazepines, pt became loud said "you are judging me based on my opioid addiction, I never been addicted to benzos", at the same time pt was buying xananx off streets, pt has h/o opioid addiction, pain killers addiction, all possible drugs, see initial assessment. pt was very unhappy with the plan, but at the same time pt was educated about it at the time of admission. over the weekend pt denied being depressed, denied thoughts of harming self or others. pt then called his father, then spoke to the nurse health center manager. pt has strong family h/o addiction to pain meds and benzos. pt tolerated meds well, no side effects observed or reported, vitals are WNL. Impression: Bipolar disorder as per history Polysubstance abuse and dependence as per history Self-reported history of ADHD. Medication Change: Yes (klonopin prn, tramadol prn) Medical Record Reviewed: Yes Consults ordered or reviewed: medical consult appreciated Mental Status Examination - Cognitive Function Orientation: Person, Place Memory: Intact Attention: WNL Concentration: Poor Association: WNL Fund of Knowledge: WNL - Mood Mood: Depressed ("I am very anxious, you need to give me klonopin"), Anxious - Affect Affect: Other (Neutral) - Speech Speech: Appropriate - Formal Thought Process Formal Thought Process: No Impairment - Suicidal Ideation Suicidal Ideation: No - Homicidal Ideation Homicidal Ideation: No Goal/Treatment Plan - Goal/Treatment Plan Need for Continued Stay: Remain at risks for inpatient hospitalization, Severe depression anxiety, Discharge may exacerbated symptoms, Severe functional impairment Progress Toward Problem(s) and Goals/Treatment Plan: Milieu/structure/supportive therapy Medical consult appreciated, see medical team note for more detailed info SW consultation for discharge plan and social issues Med management seroquel 200mg po amhs for mood stabilization prn meds for possible opioid withdrawals klonopin 0.5mg po bid for anxiety wellbutrin 150mg po daily for depression neurontin 300mg po tid for mood stabilization and possible withdrawals Family involvement Follow up on labs Will monitor closely Pt was educated about risk/benefits and alternatives of medications, coping strategies (safety plan, suicide prevention), relapse prevention, importance of follow up with psychiatrist and therapist, stay away from drugs/alcohol/smoking Estimated Date of D/C: 01/06/18 (we will monitor closely)
[2018-01-05] MEDS: buPROPion 150 mg/24 Hours XL Tab PO SCH (09:01)
[2018-01-05] MEDS: Multivitamin With Minerals Tab PO SCH (09:01)
[2018-01-05] MEDS: Pantoprazole 40 mg EC Tab PO SCH (09:25)
--- NOTE | 2018-01-05 16:40 | PCM.PYCHPN ---
Psychiatric Progress Note - Psychiatric Progress Note Patient seen today, length of contact: 30min Patient Chief Complaint: "I am sorry, but I was not feeling well" Problems Identified/Issues Discussed: Suicide/ homicide prevention, past psychiatric h/o, current psychiatric symptoms , medical problems, risk/benefits and alternatives of medications, medications compliance, coping strategies, substance abuse h/o, relapse prevention, importance of follow up with psychiatrist and therapist, discharge plan. Medical Problems: HTN, dyslipidemia Diagnostic Results: 12/30/17 17:32 12/31/17 07:30 Lab Results 12/31/17 07:30: Sodium 142, Potassium 3.9, Chloride 104, Carbon Dioxide 28, Anion Gap 14, BUN 10, Creatinine 0.8, Est GFR ( Amer) > 60, Est GFR (Non- Af Amer) > 60, Random Glucose 94, Fasting Glucose 94, Calcium 9.6, Phosphorus 4.5, Magnesium 1.9, Triglycerides 158, Cholesterol 191, LDL Cholesterol Direct 130 H, HDL Cholesterol 35 12/31/17 07:30: RPR Nonreactive 12/31/17 07:30: TSH 3rd Generation 1.46 12/30/17 18:51: Urine Opiates Screen Positive H, Urine Methadone Screen Negative , Ur Barbiturates Screen Negative, Ur Phencyclidine Scrn Negative, Ur Amphetamines Screen Negative, U Benzodiazepines Scrn Positive, U Oth Cocaine Metabols Negative, U Cannabinoids Screen Positive H 12/30/17 18:51: Urine Color Yellow, Urine Appearance Clear, Urine pH 6.0, Ur Specific [place] 1.020, Urine Protein Negative, Urine Glucose (UA) Negative, Urine Ketones Negative, Urine Blood Negative, Urine Nitrate Negative, Urine Bilirubin Negative, Urine Urobilinogen 0.2, Ur Leukocyte Esterase Negative 12/30/17 17:32: Alcohol, Quantitative < 10 12/30/17 17:32: Salicylates < 1 L, Acetaminophen < 10.0 L 12/30/17 17:32: Sodium 142, Potassium 3.4 L, Chloride 104, Carbon Dioxide 25, Anion Gap 16, BUN 8, Creatinine 0.7 L, Est GFR ( Amer) > 60, Est GFR (Non -Af Amer) > 60, Random Glucose 84, Calcium 9.4, Total Bilirubin 0.7, AST 21, ALT 46, Alkaline Phosphatase 58, Total Protein 6.7, Albumin 4.0, Globulin 2.8, Albumin/Globulin Ratio 1.4 12/30/17 17:32: WBC 7.9 D, RBC 4.64, Hgb 14.0, Hct 39.5 L, MCV 85.1, MCH 30.2, MCHC 35.4, RDW 12.7, Plt Count 219, MPV 10.2, Gran % 61.2, Lymph % (Auto) 29.4, [place] % (Auto) 6.7 H, Eos % (Auto) 2.3, Baso % (Auto) 0.4, Gran # 4.82, Lymph # ( Auto) 2.3, [place] # (Auto) 0.5, Eos # (Auto) 0.2, Baso # (Auto) 0.03 Vital Signs Temp Pulse Pulse Resp BP Pulse Ox 01/01/18 07:39 98.0 F 53 L 20 103/59 L 12/31/17 15:00 83 127/71 12/31/17 06:52 97.5 F L 54 L 16 112/69 12/31/17 00:24 69 131/91 H 12/30/17 22:55 66 18 12/30/17 21:45 98.2 F 66 18 137/76 97 12/30/17 20:57 97 H 18 122/70 100 12/30/17 16:47 99.4 F 122 H 16 143/82 95 Temp Pulse Resp BP Pulse Ox 97.5 F L 72 20 135/70 97 01/04/18 07:31 01/04/18 16:00 01/04/18 07:31 01/04/18 16:00 12/30/17 21:45 Temp Pulse Resp BP Pulse Ox 98.6 F 44 L 16 110/62 97 01/05/18 06:45 01/05/18 06:45 01/05/18 06:45 01/05/18 06:45 12/30/17 21:45 DSM 5 Symptoms Update: shortly patient is 22 year old male, self reported history of ADHD, polysubstance abuse and dependence, 3 previous psychiatric admissions, history of multiple detoxes. Patient was admitted that the psychiatric inpatient unit for evaluation and stabilization of mood symptoms inability to function, irritability, depressive symptoms, possible suicidal ideation with a plan to overdose on medications, patient needs further evaluation and stabilization, medication titration. pt was seen at the treatment team meeting room, pt still fixated on klonopin and it has to be prescribed to him. pt was able to understand that he is on tapering dose of it. pt said he feels very anxious, was offered Prozac, risk,benefits and alternatives discussed, pt agreed to be on it. later on pt was disrespectful to the staff, was demanding, and administrative meeting took place, nurse handicraft or hobby shop manager ObinnaAdamaris, Yolie, SW, pt and this newswriter met with pt. pt is aware of tx plan and willing to participate in it. pt is aware that no benzos will be prescribed to him, pt agreed. pt has strong family h/o addiction to pain meds and benzos. pt tolerated meds well, no side effects observed or reported, vitals are WNL. Impression: Bipolar disorder as per history Polysubstance abuse and dependence as per history Self-reported history of ADHD. Medication Change: Yes (klonopin prn, tramadol d/c, prozac started, seroquel increased, neurontin) Medical Record Reviewed: Yes Consults ordered or reviewed: medical consult appreciated Mental Status Examination - Cognitive Function Orientation: Person, Place Memory: Intact Attention: WNL Concentration: Poor Association: WNL Fund of Knowledge: WNL - Mood Mood: Depressed ("I am very anxious, you need to give me klonopin"), Anxious - Affect Affect: Other (Neutral) - Speech Speech: Appropriate - Formal Thought Process Formal Thought Process: No Impairment - Suicidal Ideation Suicidal Ideation: No - Homicidal Ideation Homicidal Ideation: No Goal/Treatment Plan - Goal/Treatment Plan Need for Continued Stay: Remain at risks for inpatient hospitalization, Severe depression anxiety, Discharge may exacerbated symptoms, Severe functional impairment Progress Toward Problem(s) and Goals/Treatment Plan: Milieu/structure/supportive therapy Medical consult appreciated, see medical team note for more detailed info SW consultation for discharge plan and social issues Med management seroquel 200mg po am 300mg hs for mood stabilization prn meds for possible opioid withdrawals klonopin 0.5mg po daily for anxiety, plan to wean it off wellbutrin 150mg po daily for depression neurontin 600mg po tid for mood stabilization and possible withdrawals Family involvement Follow up on labs Will monitor closely Pt was educated about risk/benefits and alternatives of medications, coping strategies (safety plan, suicide prevention), relapse prevention, importance of follow up with psychiatrist and therapist, stay away from drugs/alcohol/smoking Estimated Date of D/C: 01/06/18 (we will monitor closely)
[2018-01-05] MEDS: Alum-Mag Hydrox-Simethicone Susp (30 mL) PO PRN (21:29)
[2018-01-06] MEDS: Pantoprazole 40 mg EC Tab PO SCH (08:59)
[2018-01-06] MEDS: Multivitamin With Minerals Tab PO SCH (08:59)
[2018-01-06] MEDS: buPROPion 150 mg/24 Hours XL Tab PO SCH (08:59)
--- NOTE | 2018-01-06 14:10 | PCM.PYCHPN ---
Psychiatric Progress Note - Psychiatric Progress Note Patient seen today, length of contact: 30min Patient Chief Complaint: "I am not that bad" Problems Identified/Issues Discussed: Suicide/ homicide prevention, past psychiatric h/o, current psychiatric symptoms , medical problems, risk/benefits and alternatives of medications, medications compliance, coping strategies, substance abuse h/o, relapse prevention, importance of follow up with psychiatrist and therapist, discharge plan. Medical Problems: HTN, dyslipidemia Diagnostic Results: 12/30/17 17:32 12/31/17 07:30 Lab Results 12/31/17 07:30: Sodium 142, Potassium 3.9, Chloride 104, Carbon Dioxide 28, Anion Gap 14, BUN 10, Creatinine 0.8, Est GFR ( Amer) > 60, Est GFR (Non- Af Amer) > 60, Random Glucose 94, Fasting Glucose 94, Calcium 9.6, Phosphorus 4.5, Magnesium 1.9, Triglycerides 158, Cholesterol 191, LDL Cholesterol Direct 130 H, HDL Cholesterol 35 12/31/17 07:30: RPR Nonreactive 12/31/17 07:30: TSH 3rd Generation 1.46 12/30/17 18:51: Urine Opiates Screen Positive H, Urine Methadone Screen Negative , Ur Barbiturates Screen Negative, Ur Phencyclidine Scrn Negative, Ur Amphetamines Screen Negative, U Benzodiazepines Scrn Positive, U Oth Cocaine Metabols Negative, U Cannabinoids Screen Positive H 12/30/17 18:51: Urine Color Yellow, Urine Appearance Clear, Urine pH 6.0, Ur Specific [place] 1.020, Urine Protein Negative, Urine Glucose (UA) Negative, Urine Ketones Negative, Urine Blood Negative, Urine Nitrate Negative, Urine Bilirubin Negative, Urine Urobilinogen 0.2, Ur Leukocyte Esterase Negative 12/30/17 17:32: Alcohol, Quantitative < 10 12/30/17 17:32: Salicylates < 1 L, Acetaminophen < 10.0 L 12/30/17 17:32: Sodium 142, Potassium 3.4 L, Chloride 104, Carbon Dioxide 25, Anion Gap 16, BUN 8, Creatinine 0.7 L, Est GFR ( Amer) > 60, Est GFR (Non -Af Amer) > 60, Random Glucose 84, Calcium 9.4, Total Bilirubin 0.7, AST 21, ALT 46, Alkaline Phosphatase 58, Total Protein 6.7, Albumin 4.0, Globulin 2.8, Albumin/Globulin Ratio 1.4 12/30/17 17:32: WBC 7.9 D, RBC 4.64, Hgb 14.0, Hct 39.5 L, MCV 85.1, MCH 30.2, MCHC 35.4, RDW 12.7, Plt Count 219, MPV 10.2, Gran % 61.2, Lymph % (Auto) 29.4, [place] % (Auto) 6.7 H, Eos % (Auto) 2.3, Baso % (Auto) 0.4, Gran # 4.82, Lymph # ( Auto) 2.3, [place] # (Auto) 0.5, Eos # (Auto) 0.2, Baso # (Auto) 0.03 Vital Signs Temp Pulse Pulse Resp BP Pulse Ox 01/01/18 07:39 98.0 F 53 L 20 103/59 L 12/31/17 15:00 83 127/71 12/31/17 06:52 97.5 F L 54 L 16 112/69 12/31/17 00:24 69 131/91 H 12/30/17 22:55 66 18 12/30/17 21:45 98.2 F 66 18 137/76 97 12/30/17 20:57 97 H 18 122/70 100 12/30/17 16:47 99.4 F 122 H 16 143/82 95 Temp Pulse Resp BP Pulse Ox 97.5 F L 72 20 135/70 97 01/04/18 07:31 01/04/18 16:00 01/04/18 07:31 01/04/18 16:00 12/30/17 21:45 Temp Pulse Resp BP Pulse Ox 98.6 F 44 L 16 110/62 97 01/05/18 06:45 01/05/18 06:45 01/05/18 06:45 01/05/18 06:45 12/30/17 21:45 Temp Pulse Resp BP Pulse Ox 97.5 F L 55 L 20 100/56 L 97 01/06/18 07:17 01/06/18 07:17 01/06/18 07:17 01/06/18 07:17 12/30/17 21:45 DSM 5 Symptoms Update: shortly patient is 22 year old male, self reported history of ADHD, polysubstance abuse and dependence, 3 previous psychiatric admissions, history of multiple detoxes. Patient was admitted that the psychiatric inpatient unit for evaluation and stabilization of mood symptoms inability to function, irritability, depressive symptoms, possible suicidal ideation with a plan to overdose on medications, patient needs further evaluation and stabilization, medication titration. pt was seen at the treatment team meeting again, pt had episode of cursing at staff, was disruptive at the group therapy. limit settingat the tx team meeting , pt was advised to be compliant with tx plan and take meds what prescribed. pt said that prozac is helping him, at the same time pt is trying to convince this senior mortgage underwriter that he needs to be on klonopin. pt then was antagonizing other patients , cursing at staff, nurse floodplain manager and RN Joshua and this senior mortgage underwriter explained rules/ regulations of this unit, was advised if pt is not happy with treatment plan he has rights to request discharge and submit 48hr notice, pt does not want to leave the hospital but wants to stay and have meds what patient feels might help him. 01/05/[address], nurse floodplain manager es, Yolie, SW, pt and this senior mortgage underwriter met with pt. pt has strong family h/o addiction to pain meds and benzos. pt tolerated meds well, no side effects observed or reported, vitals are WNL. Impression: Bipolar disorder as per history Polysubstance abuse and dependence as per history Self-reported history of ADHD. Medication Change: Yes (prozac increased) Medical Record Reviewed: Yes Consults ordered or reviewed: medical consult appreciated Mental Status Examination - Cognitive Function Orientation: Person, Place Memory: Intact Attention: WNL Concentration: Poor Association: WNL Fund of Knowledge: WNL - Mood Mood: Depressed ("I am very anxious, you need to give me klonopin"), Anxious - Affect Affect: Other (Neutral) - Speech Speech: Appropriate - Formal Thought Process Formal Thought Process: No Impairment - Suicidal Ideation Suicidal Ideation: No - Homicidal Ideation Homicidal Ideation: No Goal/Treatment Plan - Goal/Treatment Plan Need for Continued Stay: Remain at risks for inpatient hospitalization, Severe depression anxiety, Discharge may exacerbated symptoms, Severe functional impairment Progress Toward Problem(s) and Goals/Treatment Plan: Milieu/structure/supportive therapy Medical consult appreciated, see medical team note for more detailed info SW consultation for discharge plan and social issues Med management prozac was started yesterday, today increased to 30mg for depression and anxiety seroquel 200mg po am 300mg hs for mood stabilization prn meds for possible opioid withdrawals klonopin d/c wellbutrin 150mg po daily for depression neurontin 600mg po tid for mood stabilization and possible withdrawals Family involvement Follow up on labs Will monitor closely Pt was educated about risk/benefits and alternatives of medications, coping strategies (safety plan, suicide prevention), relapse prevention, importance of follow up with psychiatrist and therapist, stay away from drugs/alcohol/smoking Estimated Date of D/C: 01/11/18 (we will monitor closely)
[2018-01-07] MEDS: Pantoprazole 40 mg EC Tab PO SCH ×2 (06:40→06:46)
[2018-01-07] MEDS: buPROPion 150 mg/24 Hours XL Tab PO SCH (07:31)
[2018-01-07] MEDS: Multivitamin With Minerals Tab PO SCH (07:32)
--- NOTE | 2018-01-07 14:21 | PCM.PYCHPN ---
Psychiatric Progress Note - Psychiatric Progress Note Patient seen today, length of contact: 30min Patient Chief Complaint: "I did not know that you are going to discontinue my Klonopin". (pt knew about tx plan, it was discussed with pt on multiple occasions) Problems Identified/Issues Discussed: Suicide/ homicide prevention, past psychiatric h/o, current psychiatric symptoms , medical problems, risk/benefits and alternatives of medications, medications compliance, coping strategies, substance abuse h/o, relapse prevention, importance of follow up with psychiatrist and therapist, discharge plan. Medical Problems: HTN, dyslipidemia Diagnostic Results: 12/30/17 17:32 12/31/17 07:30 Lab Results 12/31/17 07:30: Sodium 142, Potassium 3.9, Chloride 104, Carbon Dioxide 28, Anion Gap 14, BUN 10, Creatinine 0.8, Est GFR ( Amer) > 60, Est GFR (Non- Af Amer) > 60, Random Glucose 94, Fasting Glucose 94, Calcium 9.6, Phosphorus 4.5, Magnesium 1.9, Triglycerides 158, Cholesterol 191, LDL Cholesterol Direct 130 H, HDL Cholesterol 35 12/31/17 07:30: RPR Nonreactive 12/31/17 07:30: TSH 3rd Generation 1.46 12/30/17 18:51: Urine Opiates Screen Positive H, Urine Methadone Screen Negative , Ur Barbiturates Screen Negative, Ur Phencyclidine Scrn Negative, Ur Amphetamines Screen Negative, U Benzodiazepines Scrn Positive, U Oth Cocaine Metabols Negative, U Cannabinoids Screen Positive H 12/30/17 18:51: Urine Color Yellow, Urine Appearance Clear, Urine pH 6.0, Ur Specific [place] 1.020, Urine Protein Negative, Urine Glucose (UA) Negative, Urine Ketones Negative, Urine Blood Negative, Urine Nitrate Negative, Urine Bilirubin Negative, Urine Urobilinogen 0.2, Ur Leukocyte Esterase Negative 12/30/17 17:32: Alcohol, Quantitative < 10 12/30/17 17:32: Salicylates < 1 L, Acetaminophen < 10.0 L 12/30/17 17:32: Sodium 142, Potassium 3.4 L, Chloride 104, Carbon Dioxide 25, Anion Gap 16, BUN 8, Creatinine 0.7 L, Est GFR ( Amer) > 60, Est GFR (Non -Af Amer) > 60, Random Glucose 84, Calcium 9.4, Total Bilirubin 0.7, AST 21, ALT 46, Alkaline Phosphatase 58, Total Protein 6.7, Albumin 4.0, Globulin 2.8, Albumin/Globulin Ratio 1.4 12/30/17 17:32: WBC 7.9 D, RBC 4.64, Hgb 14.0, Hct 39.5 L, MCV 85.1, MCH 30.2, MCHC 35.4, RDW 12.7, Plt Count 219, MPV 10.2, Gran % 61.2, Lymph % (Auto) 29.4, [place] % (Auto) 6.7 H, Eos % (Auto) 2.3, Baso % (Auto) 0.4, Gran # 4.82, Lymph # ( Auto) 2.3, [place] # (Auto) 0.5, Eos # (Auto) 0.2, Baso # (Auto) 0.03 Vital Signs Temp Pulse Pulse Resp BP Pulse Ox 01/01/18 07:39 98.0 F 53 L 20 103/59 L 12/31/17 15:00 83 127/71 12/31/17 06:52 97.5 F L 54 L 16 112/69 12/31/17 00:24 69 131/91 H 12/30/17 22:55 66 18 12/30/17 21:45 98.2 F 66 18 137/76 97 12/30/17 20:57 97 H 18 122/70 100 12/30/17 16:47 99.4 F 122 H 16 143/82 95 Temp Pulse Resp BP Pulse Ox 97.5 F L 72 20 135/70 97 01/04/18 07:31 01/04/18 16:00 01/04/18 07:31 01/04/18 16:00 12/30/17 21:45 Temp Pulse Resp BP Pulse Ox 98.6 F 44 L 16 110/62 97 01/05/18 06:45 01/05/18 06:45 01/05/18 06:45 01/05/18 06:45 12/30/17 21:45 Temp Pulse Resp BP Pulse Ox 97.5 F L 55 L 20 100/56 L 97 01/06/18 07:17 01/06/18 07:17 01/06/18 07:17 01/06/18 07:17 12/30/17 21:45 DSM 5 Symptoms Update: shortly patient is 22 year old male, self reported history of ADHD, polysubstance abuse and dependence, 3 previous psychiatric admissions, history of multiple detoxes. Patient was admitted that the psychiatric inpatient unit for evaluation and stabilization of mood symptoms inability to function, irritability, depressive symptoms, possible suicidal ideation with a plan to overdose on medications, patient needs further evaluation and stabilization, medication titration. pt was seen next to the nursing station, pt acted in a way that he did not know about the tx plan to taper down klonopin, this entry writer reminded pt about it. Pt said that he feels "little better", reported that he slept well. pt's father contacted this entry writer yesterday, pt given written consent for disclose information, tx plan was discussed in details with father and pt. patient still appears to be irritable, has mood swings, but overall more pleasant. as per staff pt is more manageable at the unit, trying to attend groups. pt has strong family h/o addiction to pain meds and benzos. pt tolerated meds well, no side effects observed or reported, vitals are WNL. Impression: Bipolar disorder as per history Polysubstance abuse and dependence as per history Self-reported history of ADHD. Medication Change: Yes (prozac increased) Medical Record Reviewed: Yes Consults ordered or reviewed: medical consult appreciated Mental Status Examination - Cognitive Function Orientation: Person, Place Memory: Intact Attention: WNL Concentration: Poor Association: WNL Fund of Knowledge: WNL - Mood Mood: Depressed ("I am very anxious, you need to give me klonopin"), Anxious - Affect Affect: Other (Neutral) - Speech Speech: Appropriate - Formal Thought Process Formal Thought Process: No Impairment - Suicidal Ideation Suicidal Ideation: No - Homicidal Ideation Homicidal Ideation: No Goal/Treatment Plan - Goal/Treatment Plan Need for Continued Stay: Remain at risks for inpatient hospitalization, Severe depression anxiety, Discharge may exacerbated symptoms, Severe functional impairment Progress Toward Problem(s) and Goals/Treatment Plan: Milieu/structure/supportive therapy Medical consult appreciated, see medical team note for more detailed info SW consultation for discharge plan and social issues Med management [id number] for depression and anxiety seroquel 200mg po am 300mg hs for mood stabilization prn meds for possible opioid withdrawals klonopin d/c wellbutrin 150mg po daily for depression neurontin 600mg po tid for mood stabilization and possible withdrawals Family involvement Follow up on labs Will monitor closely Pt was educated about risk/benefits and alternatives of medications, coping strategies (safety plan, suicide prevention), relapse prevention, importance of follow up with psychiatrist and therapist, stay away from drugs/alcohol/smoking Estimated Date of D/C: 01/11/18 (we will monitor closely)
[2018-01-08] MEDS: Multivitamin With Minerals Tab PO SCH (08:46)
[2018-01-08] MEDS: buPROPion 150 mg/24 Hours XL Tab PO SCH (08:47)
[2018-01-08] MEDS: Pantoprazole 40 mg EC Tab PO SCH (08:47)
--- NOTE | 2018-01-08 14:43 | PCM.PYCHPN ---
Psychiatric Progress Note - Psychiatric Progress Note Patient seen today, length of contact: 30min Patient Chief Complaint: "I think I am doing better" Problems Identified/Issues Discussed: Suicide/ homicide prevention, past psychiatric h/o, current psychiatric symptoms , medical problems, risk/benefits and alternatives of medications, medications compliance, coping strategies, substance abuse h/o, relapse prevention, importance of follow up with psychiatrist and therapist, discharge plan. Medical Problems: HTN, dyslipidemia Diagnostic Results: 12/30/17 17:32 12/31/17 07:30 Lab Results 12/31/17 07:30: Sodium 142, Potassium 3.9, Chloride 104, Carbon Dioxide 28, Anion Gap 14, BUN 10, Creatinine 0.8, Est GFR ( Amer) > 60, Est GFR (Non- Af Amer) > 60, Random Glucose 94, Fasting Glucose 94, Calcium 9.6, Phosphorus 4.5, Magnesium 1.9, Triglycerides 158, Cholesterol 191, LDL Cholesterol Direct 130 H, HDL Cholesterol 35 12/31/17 07:30: RPR Nonreactive 12/31/17 07:30: TSH 3rd Generation 1.46 12/30/17 18:51: Urine Opiates Screen Positive H, Urine Methadone Screen Negative , Ur Barbiturates Screen Negative, Ur Phencyclidine Scrn Negative, Ur Amphetamines Screen Negative, U Benzodiazepines Scrn Positive, U Oth Cocaine Metabols Negative, U Cannabinoids Screen Positive H 12/30/17 18:51: Urine Color Yellow, Urine Appearance Clear, Urine pH 6.0, Ur Specific [place] 1.020, Urine Protein Negative, Urine Glucose (UA) Negative, Urine Ketones Negative, Urine Blood Negative, Urine Nitrate Negative, Urine Bilirubin Negative, Urine Urobilinogen 0.2, Ur Leukocyte Esterase Negative 12/30/17 17:32: Alcohol, Quantitative < 10 12/30/17 17:32: Salicylates < 1 L, Acetaminophen < 10.0 L 12/30/17 17:32: Sodium 142, Potassium 3.4 L, Chloride 104, Carbon Dioxide 25, Anion Gap 16, BUN 8, Creatinine 0.7 L, Est GFR ( Amer) > 60, Est GFR (Non -Af Amer) > 60, Random Glucose 84, Calcium 9.4, Total Bilirubin 0.7, AST 21, ALT 46, Alkaline Phosphatase 58, Total Protein 6.7, Albumin 4.0, Globulin 2.8, Albumin/Globulin Ratio 1.4 12/30/17 17:32: WBC 7.9 D, RBC 4.64, Hgb 14.0, Hct 39.5 L, MCV 85.1, MCH 30.2, MCHC 35.4, RDW 12.7, Plt Count 219, MPV 10.2, Gran % 61.2, Lymph % (Auto) 29.4, [place] % (Auto) 6.7 H, Eos % (Auto) 2.3, Baso % (Auto) 0.4, Gran # 4.82, Lymph # ( Auto) 2.3, [place] # (Auto) 0.5, Eos # (Auto) 0.2, Baso # (Auto) 0.03 Vital Signs Temp Pulse Pulse Resp BP Pulse Ox 01/01/18 07:39 98.0 F 53 L 20 103/59 L 12/31/17 15:00 83 127/71 12/31/17 06:52 97.5 F L 54 L 16 112/69 12/31/17 00:24 69 131/91 H 12/30/17 22:55 66 18 12/30/17 21:45 98.2 F 66 18 137/76 97 12/30/17 20:57 97 H 18 122/70 100 12/30/17 16:47 99.4 F 122 H 16 143/82 95 Temp Pulse Resp BP Pulse Ox 97.5 F L 72 20 135/70 97 01/04/18 07:31 01/04/18 16:00 01/04/18 07:31 01/04/18 16:00 12/30/17 21:45 Temp Pulse Resp BP Pulse Ox 98.6 F 44 L 16 110/62 97 01/05/18 06:45 01/05/18 06:45 01/05/18 06:45 01/05/18 06:45 12/30/17 21:45 Temp Pulse Resp BP Pulse Ox 97.5 F L 55 L 20 100/56 L 97 01/06/18 07:17 01/06/18 07:17 01/06/18 07:17 01/06/18 07:17 12/30/17 21:45 Temp Pulse Resp BP Pulse Ox 97.8 F 56 L 20 98/50 L 97 01/08/18 07:17 01/08/18 07:17 01/08/18 07:17 01/08/18 07:17 12/30/17 21:45 DSM 5 Symptoms Update: shortly patient is 22 year old male, self reported history of ADHD, polysubstance abuse and dependence, 3 previous psychiatric admissions, history of multiple detoxes. Patient was admitted that the psychiatric inpatient unit for evaluation and stabilization of mood symptoms inability to function, irritability, depressive symptoms, possible suicidal ideation with a plan to overdose on medications, patient needs further evaluation and stabilization, medication titration. pt was seen today at the treatment team meeting. pt was calm, cooperative, pt said he feels better, "I think prozac is working well", pt seems to be in better control, pt said "I have those hopeless moments , but I have good moments too'. as per staff pt is more manageable at the unit, trying to attend groups. pt has strong family h/o addiction to pain meds and benzos. pt tolerated meds well, no side effects observed or reported, vitals are WNL. Impression: Bipolar disorder as per history Polysubstance abuse and dependence as per history Self-reported history of ADHD. Medication Change: Yes (prozac increased) Medical Record Reviewed: Yes Consults ordered or reviewed: medical consult appreciated Mental Status Examination - Cognitive Function Orientation: Person, Place Memory: Intact Attention: WNL Concentration: Poor Association: WNL Fund of Knowledge: WNL - Mood Mood: Depressed ("I am doing better"), Anxious - Affect Affect: Other (Neutral) - Speech Speech: Appropriate - Formal Thought Process Formal Thought Process: No Impairment - Suicidal Ideation Suicidal Ideation: No - Homicidal Ideation Homicidal Ideation: No Goal/Treatment Plan - Goal/Treatment Plan Need for Continued Stay: Remain at risks for inpatient hospitalization, Severe depression anxiety, Discharge may exacerbated symptoms, Severe functional impairment Progress Toward Problem(s) and Goals/Treatment Plan: Milieu/structure/supportive therapy Medical consult appreciated, see medical team note for more detailed info SW consultation for discharge plan and social issues Med management prozac 40mg for depression and anxiety seroquel 200mg po am 300mg hs for mood stabilization prn meds for possible opioid withdrawals wellbutrin 150mg po daily for depression neurontin 600mg po tid for mood stabilization and possible withdrawals Family involvement Follow up on labs Will monitor closely Pt was educated about risk/benefits and alternatives of medications, coping strategies (safety plan, suicide prevention), relapse prevention, importance of follow up with psychiatrist and therapist, stay away from drugs/alcohol/smoking PLEASE DO NOT INITIATE ANY BENZODIAZEPINES Estimated Date of D/C: 01/11/18 (we will monitor closely)
--- NOTE | 2018-01-08 16:59 | PCM.BM ---
<Matilde Sesay Y - Last Filed: 01/08/18 16:59> Treatment Plan Problems - Problems identified on initial assessmt Ineffective Coping Date Initiated: 12/30/17 Time Initiated: 21:45 Assessment reference: NA Status: Active Hopelessness/helplessness Date Initiated: 12/30/17 Time Initiated: 21:45 Assessment reference: NA Status: Active Altered Sleep Patterns Date Initiated: 12/30/17 Time Initiated: 21:45 Assessment reference: NA Status: Active Treatment assets and liabiliti Patient Assests: adapts well, good support system, negotiates basic needs, good past tx response, cognitively intact, cooperative, educated, motivated, self- reliant, ADL independent, physically healthy Patient Liabilities: poor support system, substance abuse - Milieu Protocol Maintain good personal hygiene: daily Encourage regular showers, daily Remind patient to perform daily oral care, daily Assist patient to perform ADL's Conduct patient checks and document Observation sheet: Q15 minutes Maintain personal safety: every shift Educate patient to report safety concerns to staff, every shift Monitor environment for contraband/sharps Medication safety: Monitor for expected outcome, potential side effects: every shift, Assess barriers to learning: every shift, Assess readiness for medication education: every shift Milieu Narrative: Milieu/structure/supportive therapy Medical consult appreciated, see medical team note for more detailed info SW consultation for discharge plan and social issues Med management prozac 40mg for depression and anxiety seroquel 200mg po am 300mg hs for mood stabilization prn meds for possible opioid withdrawals wellbutrin 150mg po daily for depression neurontin 600mg po tid for mood stabilization and possible withdrawals Family involvement Follow up on labs Will monitor closely Pt was educated about risk/benefits and alternatives of medications, coping strategies (safety plan, suicide prevention), relapse prevention, importance of follow up with psychiatrist and therapist, stay away from drugs/alcohol/smoking PLEASE DO NOT INITIATE ANY BENZODIAZEPINES Family Contact Family involvement: Family/SO is involved Family contact: Patient agrees to contact Family contact name: Luis Alberto Nathan Sr. Family contacted how many times per week?: 2 Discharge/Continuing Care - Education Needs Education Needs: Patient Medication, Patient Diagnosis/Disease Process, Patient Coping Skills, Patient Placement options, Patient Community resources, Patient Activities of Daily Living, Patient Pain, Patient Nutrition, Patient Health Practices/Safety, Patient Aftercare Safety Plan - Discharge Discharge Criteria: Tolerates medication w/o severe side effects, Free of Suicidal thoughts, Normal sleep pattern, Ability to care for self - Treatment Team Participation Patient/Family/SO Statement: Milieu/structure/supportive therapy Medical consult appreciated, see medical team note for more detailed info SW consultation for discharge plan and social issues Med management prozac 40mg for depression and anxiety seroquel 200mg po am 300mg hs for mood stabilization prn meds for possible opioid withdrawals wellbutrin 150mg po daily for depression neurontin 600mg po tid for mood stabilization and possible withdrawals Family involvement Follow up on labs Will monitor closely Pt was educated about risk/benefits and alternatives of medications, coping strategies (safety plan, suicide prevention), relapse prevention, importance of follow up with psychiatrist and therapist, stay away from drugs/alcohol/smoking PLEASE DO NOT INITIATE ANY BENZODIAZEPINES Treatment Plan Review - Problem Ineffective Coping Time Initiated: 21:45 Hopelessness/helplessness Time Initiated: 21:45 Altered Sleep Patterns Time Initiated: 21:45 <Angelika Evans - Last Filed: 01/08/18 17:08> Treatment Plan Review - Problem Ineffective Coping Date Initiated: 01/08/18 Progress toward outcomes: improved Hopelessness/helplessness Date Initiated: 01/08/18 Progress toward outcomes: improved Altered Sleep Patterns Date Initiated: 01/08/18 Progress toward outcomes: improved <Gracia Shukla - Last Filed: 01/11/18 13:39> - Diagnosis (1) Polysubstance abuse Status: Chronic Interventions: 01/11/18 13:37 pt is not withdrawing pt is able to participate in aftercare plan pt does not want to be referred to inpatient rehab pt wants to be referred to [facility] (2) Bipolar 1 disorder Status: Suspected Interventions: 01/11/18 13:38 pt is currently depressed, but not suicidal compliant with meds and unit rules and regulations pt tolerates meds well impulses are better controlled safety plan relapse prevention
[2018-01-08] MEDS: Alum-Mag Hydrox-Simethicone Susp (30 mL) PO PRN (21:39)
[2018-01-09] MEDS: Pantoprazole 40 mg EC Tab PO SCH (07:58)
[2018-01-09] MEDS: buPROPion 150 mg/24 Hours XL Tab PO SCH (08:58)
[2018-01-09] MEDS: Multivitamin With Minerals Tab PO SCH (08:59)
--- NOTE | 2018-01-09 09:30 | PCM.PYCHPN ---
Psychiatric Progress Note - Psychiatric Progress Note Patient seen today, length of contact: 25 min Patient Chief Complaint: "all right, doing better than I was" Problems Identified/Issues Discussed: I reviewed recent notes and patient was interviewed at bedside. He is oriented x3 and superficially cooperative. He reports that he is "all right, doing better than I was" and denies having any further vomiting episodes. Feels that zofran helped with nausea and stomach pain. Denies any current discomfort. Patient appears calm and in control during my visit. He denies hopelessness or SI/HI. Thought process continues to be coherent and goal directed with no evidence of thought disturbance. Staff notes indicate that patient is visible on the unit and socializes appropriately with patients and staff. Compliant with his medications and has been in good behavioral control. Diagnostic Results: Bipolar disorder as per history Polysubstance abuse and dependence as per history Self-reported history of ADHD. Medication Change: Yes (prozac increased) Medical Record Reviewed: Yes Mental Status Examination - Cognitive Function Orientation: Person, Place Memory: Intact Attention: WNL Concentration: Poor Association: WNL Fund of Knowledge: WNL - Mood Mood: Depressed ( "all right, doing better than I was"), Anxious - Affect Affect: Other (Neutral) - Speech Speech: Appropriate - Formal Thought Process Formal Thought Process: No Impairment - Suicidal Ideation Suicidal Ideation: No - Homicidal Ideation Homicidal Ideation: No Goal/Treatment Plan - Goal/Treatment Plan Need for Continued Stay: Remain at risks for inpatient hospitalization, Severe depression anxiety, Discharge may exacerbated symptoms, Severe functional impairment Progress Toward Problem(s) and Goals/Treatment Plan: c/w current tx and plan No new weekend labs thus far Vitals reviewed and noted below: Selected Entries 01/09/18 07:16 Temperature 98.1 F Pulse Rate 53 L Respiratory 20 Rate Blood Pressure 103/51 L Estimated Date of D/C: 01/11/18 (we will monitor closely)
[2018-01-10] MEDS: Multivitamin With Minerals Tab PO SCH (08:33)
[2018-01-10] MEDS: buPROPion 150 mg/24 Hours XL Tab PO SCH (08:35)
[2018-01-10] MEDS: Pantoprazole 40 mg EC Tab PO SCH (08:35)
--- NOTE | 2018-01-10 09:20 | PCM.PYCHPN ---
Psychiatric Progress Note - Psychiatric Progress Note Patient seen today, length of contact: 25 min Patient Chief Complaint: "having a bad day yesterday, feeling down and just not happy" Problems Identified/Issues Discussed: I reviewed recent notes and patient was interviewed at bedside. He is oriented x3 and superficially cooperative. He reports "having a bad day yesterday, feeling down and just not happy". Indicates that energy levels are poor and endorses apathy. He denies any recent stressors on the unit. Episode of vomiting on Thursday resolved without any further incidents. Denies any current discomfort or pain. Patient appears calm and in control during my visit. He denies hopelessness or SI/HI. Thought process continues to be coherent and goal directed with no evidence of thought disturbance. Staff notes indicate that patient is visible on the unit and socializes appropriately with patients and staff. Can be somatic, manipulative and med- seeking. Thus far there have been no major behavioral issues over the weekend. Diagnostic Results: Bipolar disorder as per history Polysubstance abuse and dependence as per history Self-reported history of ADHD. Medication Change: Yes (prozac increased) Medical Record Reviewed: Yes Mental Status Examination - Cognitive Function Orientation: Person, Place Memory: Intact Attention: WNL Concentration: Poor Association: WNL Fund of Knowledge: WNL - Mood Mood: Depressed ( "having a bad day yesterday, feeling down and just not happy") , Anxious - Affect Affect: Other ( manipulative, somatic) - Speech Speech: Appropriate - Formal Thought Process Formal Thought Process: No Impairment - Suicidal Ideation Suicidal Ideation: No - Homicidal Ideation Homicidal Ideation: No Goal/Treatment Plan - Goal/Treatment Plan Need for Continued Stay: Remain at risks for inpatient hospitalization, Severe depression anxiety, Discharge may exacerbated symptoms, Severe functional impairment Progress Toward Problem(s) and Goals/Treatment Plan: c/w current tx and plan No new weekend labs Vitals reviewed and noted below: Selected Entries 01/10/18 06:55 Temperature 97.8 F Pulse Rate 70 Respiratory 20 Rate Blood Pressure 100/70 Estimated Date of D/C: 01/11/18 (we will monitor closely)
[2018-01-11] MEDS: Multivitamin With Minerals Tab PO SCH (08:25)
[2018-01-11] MEDS: buPROPion 150 mg/24 Hours XL Tab PO SCH (08:26)
[2018-01-11] MEDS: Pantoprazole 40 mg EC Tab PO SCH (08:26)
--- NOTE | 2018-01-11 13:50 | PCM.PYCHPN ---
Psychiatric Progress Note - Psychiatric Progress Note Patient seen today, length of contact: 30min Patient Chief Complaint: "I am depressed today, I did not feel good over the weekend..." Problems Identified/Issues Discussed: Suicide/ homicide prevention, past psychiatric h/o, current psychiatric symptoms , medical problems, risk/benefits and alternatives of medications, medications compliance, coping strategies, substance abuse h/o, relapse prevention, importance of follow up with psychiatrist and therapist, discharge plan. Medical Problems: HTN, dyslipidemia Diagnostic Results: 12/30/17 17:32 12/31/17 07:30 Lab Results 12/31/17 07:30: Sodium 142, Potassium 3.9, Chloride 104, Carbon Dioxide 28, Anion Gap 14, BUN 10, Creatinine 0.8, Est GFR ( Amer) > 60, Est GFR (Non- Af Amer) > 60, Random Glucose 94, Fasting Glucose 94, Calcium 9.6, Phosphorus 4.5, Magnesium 1.9, Triglycerides 158, Cholesterol 191, LDL Cholesterol Direct 130 H, HDL Cholesterol 35 12/31/17 07:30: RPR Nonreactive 12/31/17 07:30: TSH 3rd Generation 1.46 12/30/17 18:51: Urine Opiates Screen Positive H, Urine Methadone Screen Negative , Ur Barbiturates Screen Negative, Ur Phencyclidine Scrn Negative, Ur Amphetamines Screen Negative, U Benzodiazepines Scrn Positive, U Oth Cocaine Metabols Negative, U Cannabinoids Screen Positive H 12/30/17 18:51: Urine Color Yellow, Urine Appearance Clear, Urine pH 6.0, Ur Specific [place] 1.020, Urine Protein Negative, Urine Glucose (UA) Negative, Urine Ketones Negative, Urine Blood Negative, Urine Nitrate Negative, Urine Bilirubin Negative, Urine Urobilinogen 0.2, Ur Leukocyte Esterase Negative 12/30/17 17:32: Alcohol, Quantitative < 10 12/30/17 17:32: Salicylates < 1 L, Acetaminophen < 10.0 L 12/30/17 17:32: Sodium 142, Potassium 3.4 L, Chloride 104, Carbon Dioxide 25, Anion Gap 16, BUN 8, Creatinine 0.7 L, Est GFR ( Amer) > 60, Est GFR (Non -Af Amer) > 60, Random Glucose 84, Calcium 9.4, Total Bilirubin 0.7, AST 21, ALT 46, Alkaline Phosphatase 58, Total Protein 6.7, Albumin 4.0, Globulin 2.8, Albumin/Globulin Ratio 1.4 12/30/17 17:32: WBC 7.9 D, RBC 4.64, Hgb 14.0, Hct 39.5 L, MCV 85.1, MCH 30.2, MCHC 35.4, RDW 12.7, Plt Count 219, MPV 10.2, Gran % 61.2, Lymph % (Auto) 29.4, [place] % (Auto) 6.7 H, Eos % (Auto) 2.3, Baso % (Auto) 0.4, Gran # 4.82, Lymph # ( Auto) 2.3, [place] # (Auto) 0.5, Eos # (Auto) 0.2, Baso # (Auto) 0.03 Vital Signs Temp Pulse Pulse Resp BP Pulse Ox 01/01/18 07:39 98.0 F 53 L 20 103/59 L 12/31/17 15:00 83 127/71 12/31/17 06:52 97.5 F L 54 L 16 112/69 12/31/17 00:24 69 131/91 H 12/30/17 22:55 66 18 12/30/17 21:45 98.2 F 66 18 137/76 97 12/30/17 20:57 97 H 18 122/70 100 12/30/17 16:47 99.4 F 122 H 16 143/82 95 Temp Pulse Resp BP Pulse Ox 97.5 F L 72 20 135/70 97 01/04/18 07:31 01/04/18 16:00 01/04/18 07:31 01/04/18 16:00 12/30/17 21:45 Temp Pulse Resp BP Pulse Ox 98.6 F 44 L 16 110/62 97 01/05/18 06:45 01/05/18 06:45 01/05/18 06:45 01/05/18 06:45 12/30/17 21:45 Temp Pulse Resp BP Pulse Ox 97.5 F L 55 L 20 100/56 L 97 01/06/18 07:17 01/06/18 07:17 01/06/18 07:17 01/06/18 07:17 12/30/17 21:45 Temp Pulse Resp BP Pulse Ox 97.8 F 56 L 20 98/50 L 97 01/08/18 07:17 01/08/18 07:17 01/08/18 07:17 01/08/18 07:17 12/30/17 21:45 Temp Pulse Resp BP Pulse Ox 97.9 F 60 20 121/63 97 01/11/18 06:58 01/11/18 11:12 01/11/18 06:58 01/11/18 11:12 12/30/17 21:45 DSM 5 Symptoms Update: shortly patient is 22 year old male, self reported history of ADHD, polysubstance abuse and dependence, 3 previous psychiatric admissions, history of multiple detoxes. Patient was admitted that the psychiatric inpatient unit for evaluation and stabilization of mood symptoms inability to function, irritability, depressive symptoms, possible suicidal ideation with a plan to overdose on medications, patient needs further evaluation and stabilization, medication titration. pt was seen today at the treatment team meeting room, as per report from the Nursing staff pt was calm, no behavioral problems, pt is calm and cooperative. pt reported that he feels depressed "but I am not suicidal or something, just feel very down". pt said that he is not interested to go to inpatient rehab, pt' s father is also a drug addict (as per pt), pt said "my father has the same problems as I, it will be hard to stay sober". pt was advised to go to inpatient rehab but pt declined that offer. pt was willing to increase the Prozac. as per staff pt is more manageable at the unit, attends groups. pt tolerated meds well, no side effects observed or reported, vitals are WNL. Impression: Bipolar disorder as per history Polysubstance abuse and dependence as per history Self-reported history of ADHD. Medication Change: Yes (prozac increased) Medical Record Reviewed: Yes Consults ordered or reviewed: medical consult appreciated Mental Status Examination - Cognitive Function Orientation: Person, Place Memory: Intact Attention: WNL Concentration: Poor Association: WNL Fund of Knowledge: WNL - Mood Mood: Depressed ( "having a bad weekend, feeling down and just not happy"), Anxious - Affect Affect: Constricted, Other - Speech Speech: Appropriate - Formal Thought Process Formal Thought Process: No Impairment - Suicidal Ideation Suicidal Ideation: No - Homicidal Ideation Homicidal Ideation: No Goal/Treatment Plan - Goal/Treatment Plan Need for Continued Stay: Remain at risks for inpatient hospitalization, Severe depression anxiety, Discharge may exacerbated symptoms, Severe functional impairment Progress Toward Problem(s) and Goals/Treatment Plan: Milieu/structure/supportive therapy Medical consult appreciated, see medical team note for more detailed info SW consultation for discharge plan and social issues Med management prozac 60mg for depression and anxiety seroquel 200mg po am 300mg hs for mood stabilization prn meds for possible opioid withdrawals wellbutrin 150mg po daily for depression neurontin 600mg po tid for mood stabilization and possible withdrawals Family involvement Follow up on labs Will monitor closely Pt was educated about risk/benefits and alternatives of medications, coping strategies (safety plan, suicide prevention), relapse prevention, importance of follow up with psychiatrist and therapist, stay away from drugs/alcohol/smoking Estimated Date of D/C: 01/14/18 (we will monitor closely)
[2018-01-11 22:44] VITALS: O2SAT 95
[2018-01-12] MEDS: Pantoprazole 40 mg EC Tab PO SCH (08:46)
[2018-01-12] MEDS: Multivitamin With Minerals Tab PO SCH (08:46)
[2018-01-12] MEDS: buPROPion 150 mg/24 Hours XL Tab PO SCH (08:47)
--- NOTE | 2018-01-12 15:50 | PCM.PYCHPN ---
Psychiatric Progress Note - Psychiatric Progress Note Patient seen today, length of contact: 30min Patient Chief Complaint: "I am little better" Problems Identified/Issues Discussed: Suicide/ homicide prevention, past psychiatric h/o, current psychiatric symptoms , medical problems, risk/benefits and alternatives of medications, medications compliance, coping strategies, substance abuse h/o, relapse prevention, importance of follow up with psychiatrist and therapist, discharge plan. Medical Problems: HTN, dyslipidemia Diagnostic Results: 12/30/17 17:32 12/31/17 07:30 Lab Results 12/31/17 07:30: Sodium 142, Potassium 3.9, Chloride 104, Carbon Dioxide 28, Anion Gap 14, BUN 10, Creatinine 0.8, Est GFR ( Amer) > 60, Est GFR (Non- Af Amer) > 60, Random Glucose 94, Fasting Glucose 94, Calcium 9.6, Phosphorus 4.5, Magnesium 1.9, Triglycerides 158, Cholesterol 191, LDL Cholesterol Direct 130 H, HDL Cholesterol 35 12/31/17 07:30: RPR Nonreactive 12/31/17 07:30: TSH 3rd Generation 1.46 12/30/17 18:51: Urine Opiates Screen Positive H, Urine Methadone Screen Negative , Ur Barbiturates Screen Negative, Ur Phencyclidine Scrn Negative, Ur Amphetamines Screen Negative, U Benzodiazepines Scrn Positive, U Oth Cocaine Metabols Negative, U Cannabinoids Screen Positive H 12/30/17 18:51: Urine Color Yellow, Urine Appearance Clear, Urine pH 6.0, Ur Specific [place] 1.020, Urine Protein Negative, Urine Glucose (UA) Negative, Urine Ketones Negative, Urine Blood Negative, Urine Nitrate Negative, Urine Bilirubin Negative, Urine Urobilinogen 0.2, Ur Leukocyte Esterase Negative 12/30/17 17:32: Alcohol, Quantitative < 10 12/30/17 17:32: Salicylates < 1 L, Acetaminophen < 10.0 L 12/30/17 17:32: Sodium 142, Potassium 3.4 L, Chloride 104, Carbon Dioxide 25, Anion Gap 16, BUN 8, Creatinine 0.7 L, Est GFR ( Amer) > 60, Est GFR (Non -Af Amer) > 60, Random Glucose 84, Calcium 9.4, Total Bilirubin 0.7, AST 21, ALT 46, Alkaline Phosphatase 58, Total Protein 6.7, Albumin 4.0, Globulin 2.8, Albumin/Globulin Ratio 1.4 12/30/17 17:32: WBC 7.9 D, RBC 4.64, Hgb 14.0, Hct 39.5 L, MCV 85.1, MCH 30.2, MCHC 35.4, RDW 12.7, Plt Count 219, MPV 10.2, Gran % 61.2, Lymph % (Auto) 29.4, [place] % (Auto) 6.7 H, Eos % (Auto) 2.3, Baso % (Auto) 0.4, Gran # 4.82, Lymph # ( Auto) 2.3, [place] # (Auto) 0.5, Eos # (Auto) 0.2, Baso # (Auto) 0.03 Vital Signs Temp Pulse Pulse Resp BP Pulse Ox 01/01/18 07:39 98.0 F 53 L 20 103/59 L 12/31/17 15:00 83 127/71 12/31/17 06:52 97.5 F L 54 L 16 112/69 12/31/17 00:24 69 131/91 H 12/30/17 22:55 66 18 12/30/17 21:45 98.2 F 66 18 137/76 97 12/30/17 20:57 97 H 18 122/70 100 12/30/17 16:47 99.4 F 122 H 16 143/82 95 Temp Pulse Resp BP Pulse Ox 97.5 F L 72 20 135/70 97 01/04/18 07:31 01/04/18 16:00 01/04/18 07:31 01/04/18 16:00 12/30/17 21:45 Temp Pulse Resp BP Pulse Ox 98.6 F 44 L 16 110/62 97 01/05/18 06:45 01/05/18 06:45 01/05/18 06:45 01/05/18 06:45 12/30/17 21:45 Temp Pulse Resp BP Pulse Ox 97.5 F L 55 L 20 100/56 L 97 01/06/18 07:17 01/06/18 07:17 01/06/18 07:17 01/06/18 07:17 12/30/17 21:45 Temp Pulse Resp BP Pulse Ox 97.8 F 56 L 20 98/50 L 97 01/08/18 07:17 01/08/18 07:17 01/08/18 07:17 01/08/18 07:17 12/30/17 21:45 Temp Pulse Resp BP Pulse Ox 97.9 F 60 20 121/63 97 01/11/18 06:58 01/11/18 11:12 01/11/18 06:58 01/11/18 11:12 12/30/17 21:45 Temp Pulse Resp BP Pulse Ox 98.1 F 65 16 111/63 95 01/12/18 11:24 01/12/18 12:14 01/12/18 11:24 01/12/18 12:14 01/11/18 16:00 DSM 5 Symptoms Update: shortly patient is 22 year old male, self reported history of ADHD, polysubstance abuse and dependence, 3 previous psychiatric admissions, history of multiple detoxes. Patient was admitted that the psychiatric inpatient unit for evaluation and stabilization of mood symptoms inability to function, irritability, depressive symptoms, possible suicidal ideation with a plan to overdose on medications, patient needs further evaluation and stabilization, medication titration. pt was seen today next to the nursing station, pt said that he is doing "little better", pt denied thoughts of harming self or others, pt's insight into his addiction and mental illness improving. pt is more optimistic about the future, "I want to concentrate on my problems and my physical and mental health, I am not thinking about anything else". as per staff pt is more manageable at the unit, attends groups. pt tolerated meds well, no side effects observed or reported, vitals are WNL. Impression: Bipolar disorder as per history Polysubstance abuse and dependence as per history Self-reported history of ADHD. Medication Change: No Medical Record Reviewed: Yes Mental Status Examination - Cognitive Function Orientation: Person, Place Memory: Intact Attention: WNL Concentration: Poor Association: WNL Fund of Knowledge: WNL - Mood Mood: Depressed ( "having a bad weekend, feeling down and just not happy"), Anxious - Affect Affect: Constricted, Other - Speech Speech: Appropriate - Formal Thought Process Formal Thought Process: No Impairment - Suicidal Ideation Suicidal Ideation: No - Homicidal Ideation Homicidal Ideation: No Goal/Treatment Plan - Goal/Treatment Plan Need for Continued Stay: Remain at risks for inpatient hospitalization, Severe depression anxiety, Discharge may exacerbated symptoms, Severe functional impairment Progress Toward Problem(s) and Goals/Treatment Plan: Milieu/structure/supportive therapy Medical consult appreciated, see medical team note for more detailed info SW consultation for discharge plan and social issues Med management prozac 60mg for depression and anxiety seroquel 200mg po am 300mg hs for mood stabilization prn meds for possible opioid withdrawals wellbutrin 150mg po daily for depression neurontin 600mg po tid for mood stabilization and possible withdrawals Family involvement Follow up on labs Will monitor closely Pt was educated about risk/benefits and alternatives of medications, coping strategies (safety plan, suicide prevention), relapse prevention, importance of follow up with psychiatrist and therapist, stay away from drugs/alcohol/smoking Estimated Date of D/C: 01/14/18 (we will monitor closely)
[2018-01-13 07:25] VITALS: RESP 20
[2018-01-13] MEDS: Multivitamin With Minerals Tab PO SCH (08:34)
[2018-01-13] MEDS: buPROPion 150 mg/24 Hours XL Tab PO SCH (08:35)
[2018-01-13] MEDS: Pantoprazole 40 mg EC Tab PO SCH (08:35)
--- NOTE | 2018-01-13 11:43 | PCM.PYCHPN ---
Psychiatric Progress Note - Psychiatric Progress Note Patient seen today, length of contact: 30min Patient Chief Complaint: "I didn't sleep last night" Problems Identified/Issues Discussed: Suicide/ homicide prevention, past psychiatric h/o, current psychiatric symptoms , medical problems, risk/benefits and alternatives of medications, medications compliance, coping strategies, substance abuse h/o, relapse prevention, importance of follow up with psychiatrist and therapist, discharge plan. Medical Problems: HTN, dyslipidemia Diagnostic Results: 12/30/17 17:32 12/31/17 07:30 Lab Results 12/31/17 07:30: Sodium 142, Potassium 3.9, Chloride 104, Carbon Dioxide 28, Anion Gap 14, BUN 10, Creatinine 0.8, Est GFR ( Amer) > 60, Est GFR (Non- Af Amer) > 60, Random Glucose 94, Fasting Glucose 94, Calcium 9.6, Phosphorus 4.5, Magnesium 1.9, Triglycerides 158, Cholesterol 191, LDL Cholesterol Direct 130 H, HDL Cholesterol 35 12/31/17 07:30: RPR Nonreactive 12/31/17 07:30: TSH 3rd Generation 1.46 12/30/17 18:51: Urine Opiates Screen Positive H, Urine Methadone Screen Negative , Ur Barbiturates Screen Negative, Ur Phencyclidine Scrn Negative, Ur Amphetamines Screen Negative, U Benzodiazepines Scrn Positive, U Oth Cocaine Metabols Negative, U Cannabinoids Screen Positive H 12/30/17 18:51: Urine Color Yellow, Urine Appearance Clear, Urine pH 6.0, Ur Specific [place] 1.020, Urine Protein Negative, Urine Glucose (UA) Negative, Urine Ketones Negative, Urine Blood Negative, Urine Nitrate Negative, Urine Bilirubin Negative, Urine Urobilinogen 0.2, Ur Leukocyte Esterase Negative 12/30/17 17:32: Alcohol, Quantitative < 10 12/30/17 17:32: Salicylates < 1 L, Acetaminophen < 10.0 L 12/30/17 17:32: Sodium 142, Potassium 3.4 L, Chloride 104, Carbon Dioxide 25, Anion Gap 16, BUN 8, Creatinine 0.7 L, Est GFR ( Amer) > 60, Est GFR (Non -Af Amer) > 60, Random Glucose 84, Calcium 9.4, Total Bilirubin 0.7, AST 21, ALT 46, Alkaline Phosphatase 58, Total Protein 6.7, Albumin 4.0, Globulin 2.8, Albumin/Globulin Ratio 1.4 12/30/17 17:32: WBC 7.9 D, RBC 4.64, Hgb 14.0, Hct 39.5 L, MCV 85.1, MCH 30.2, MCHC 35.4, RDW 12.7, Plt Count 219, MPV 10.2, Gran % 61.2, Lymph % (Auto) 29.4, [place] % (Auto) 6.7 H, Eos % (Auto) 2.3, Baso % (Auto) 0.4, Gran # 4.82, Lymph # ( Auto) 2.3, [place] # (Auto) 0.5, Eos # (Auto) 0.2, Baso # (Auto) 0.03 Vital Signs Temp Pulse Pulse Resp BP Pulse Ox 01/01/18 07:39 98.0 F 53 L 20 103/59 L 12/31/17 15:00 83 127/71 12/31/17 06:52 97.5 F L 54 L 16 112/69 12/31/17 00:24 69 131/91 H 12/30/17 22:55 66 18 12/30/17 21:45 98.2 F 66 18 137/76 97 12/30/17 20:57 97 H 18 122/70 100 12/30/17 16:47 99.4 F 122 H 16 143/82 95 Temp Pulse Resp BP Pulse Ox 97.5 F L 72 20 135/70 97 01/04/18 07:31 01/04/18 16:00 01/04/18 07:31 01/04/18 16:00 12/30/17 21:45 Temp Pulse Resp BP Pulse Ox 98.6 F 44 L 16 110/62 97 01/05/18 06:45 01/05/18 06:45 01/05/18 06:45 01/05/18 06:45 12/30/17 21:45 Temp Pulse Resp BP Pulse Ox 97.5 F L 55 L 20 100/56 L 97 01/06/18 07:17 01/06/18 07:17 01/06/18 07:17 01/06/18 07:17 12/30/17 21:45 Temp Pulse Resp BP Pulse Ox 97.8 F 56 L 20 98/50 L 97 01/08/18 07:17 03/02/18 07:17 01/08/18 07:17 01/08/18 07:17 12/30/17 21:45 Temp Pulse Resp BP Pulse Ox 97.9 F 60 20 121/63 97 01/11/18 06:58 01/11/18 11:12 01/11/18 06:58 01/11/18 11:12 12/30/17 21:45 Temp Pulse Resp BP Pulse Ox 98.1 F 65 16 111/63 95 01/12/18 11:24 01/12/18 12:14 01/12/18 11:24 01/12/18 12:14 01/11/18 16:00 Temp Pulse Resp BP Pulse Ox 98.2 F 63 20 117/56 L 95 01/13/18 07:24 01/13/18 07:24 01/13/18 07:24 01/13/18 07:24 01/11/18 16:00 DSM 5 Symptoms Update: shortly patient is 22 year old male, self reported history of ADHD, polysubstance abuse and dependence, 3 previous psychiatric admissions, history of multiple detoxes. Patient was admitted that the psychiatric inpatient unit for evaluation and stabilization of mood symptoms inability to function, irritability, depressive symptoms, possible suicidal ideation with a plan to overdose on medications, patient needs further evaluation and stabilization, medication titration. pt was seen in his room today, pt said that today is not a good day because he did not sleep last night. pt was staying in bed all morning. pt reported that he likes medications he is currently on, denied any side effects. pt said he has future oriented plans, "I want to go back to school, I want to find a job". pt , pt denied thoughts of harming self or others, pt's insight into his addiction and mental illness improving. as per staff pt is more manageable at the unit, attends groups. pt tolerated meds well, no side effects observed or reported, vitals are WNL, no signs of withdrawals, pt has good appetite. Impression: Bipolar disorder as per history Polysubstance abuse and dependence as per history Self-reported history of ADHD. Medication Change: No Medical Record Reviewed: Yes Consults ordered or reviewed: medical consult appreciated Mental Status Examination - Cognitive Function Orientation: Person, Place Memory: Intact Attention: WNL Concentration: Poor (improvement) Association: WNL Fund of Knowledge: WNL - Mood Mood: Depressed ("I felt better yesterday, but today is not a good day"), Anxious - Affect Affect: Constricted, Other - Speech Speech: Appropriate - Formal Thought Process Formal Thought Process: No Impairment - Suicidal Ideation Suicidal Ideation: No - Homicidal Ideation Homicidal Ideation: No Goal/Treatment Plan - Goal/Treatment Plan Need for Continued Stay: Remain at risks for inpatient hospitalization, Severe depression anxiety, Discharge may exacerbated symptoms, Severe functional impairment Progress Toward Problem(s) and Goals/Treatment Plan: Milieu/structure/supportive therapy Medical consult appreciated, see medical team note for more detailed info SW consultation for discharge plan and social issues Med management prozac 60mg for depression and anxiety seroquel 200mg po am 300mg hs for mood stabilization prn meds for possible opioid withdrawals wellbutrin 150mg po daily for depression neurontin 600mg po tid for mood stabilization and possible withdrawals Family involvement Follow up on labs Will monitor closely Pt was educated about risk/benefits and alternatives of medications, coping strategies (safety plan, suicide prevention), relapse prevention, importance of follow up with psychiatrist and therapist, stay away from drugs/alcohol/smoking Estimated Date of D/C: 01/14/18 (we will monitor closely)
[2018-01-14 07:01] VITALS: BP 112/63; PULSE 61; TEMP 98
[2018-01-14] MEDS: Pantoprazole 40 mg EC Tab PO SCH (09:09)
[2018-01-14] MEDS: buPROPion 150 mg/24 Hours XL Tab PO SCH (09:09)
[2018-01-14] MEDS: Multivitamin With Minerals Tab PO SCH (09:09)
== END 2018-01-14 14:23 | disposition home or self-care (01) | DRG 430 ==
LOC: ED 16:35 → ERH 19:46 → PSYC 21:33
PROVIDERS: ADMIT Psychiatry & Neurology Psychiatry; ATTEND Psychiatry & Neurology Psychiatry
PROC: GZ3ZZZZ Medication Management (ICD-10-PCS; principal; 2017-12-31)
DX: F31.9 Bipolar disorder, unspecified (principal); F11.20 Opioid dependence, uncomplicated; R45.851 Suicidal ideations; F13.20 Sedative, hypnotic or anxiolytic dependence, uncomplicated; I10 Essential (primary) hypertension; F10.20 Alcohol dependence, uncomplicated; F90.9 Attention-deficit hyperactivity disorder, unspecified type; E78.5 Hyperlipidemia, unspecified; K21.9 Gastro-esophageal reflux disease without esophagitis; F17.210 Nicotine dependence, cigarettes, uncomplicated